=== PATIENT | male | born 1950 | race Caucasian/White ===

== ENCOUNTER 2021-04-13 16:56 | Inpatient (IN) | payer OTHER ==
--- OUTSIDE RECORDS SUMMARY | 2021-04-13 16:59 | XMS REPORT | Continuity of Care Document ---
:1950 Author Organization [facility] t Address [address] [place] [address] Care Team Providers Name Role Phone OSCAR Attending Clinician Unavailable NERY Attending Clinician Unavailable AMARILYS Attending Clinician Unavailable Babar Faulkner MA Attending Clinician Unavailable OSCAR Attending Clinician Unavailable AMARILYS Attending Clinician Unavailable Hector RUSSELL, Sonu Attending Clinician NERY Attending Clinician Unavailable KENYATTA Attending Clinician Unavailable Payers Payer Name Policy Type Policy Number Effective Date Expiration Date S sivakumar MEDICARE PART A [id number] 2013 2024 AND B 00:00:00 00:00:00 Problems Condition Condition Condition Status Onset Resolution Last Treating Co mments Source Name Details Category Date Date Treatment Clinician Date History of History of Problem Active U nivers right foot right foot it y of drop drop [place] [facility] ans History of History of Problem Resolve Univers chronic chronic d ity of fatigue fatigue [place] syndrome syndrome Physic i ans History of History of Problem Resolve Univers depression depression d it y of [place] [facility] ans History of History of Problem Resolve Univers diabetes diabetes d ity of mellitus mellitus [place] [facility] History of History of Problem Resolve Univers high blood high blood d it y of pressure pressure [place] [facility] Patent Patent Problem Active 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 [place] [facility] ans 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 [place] [facility] ans 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 [place] with with Physici peripheral peripheral an s quitline counselor quitline counselor y y disorder, disorder, uncontroll uncontroll ed ed Pure Pure Problem Active Univers hyperchole hyperchole it y of sterolemia sterolemia [place] [facility] Occlusion Occlusion Problem Active Uni vers and and ity of stenosis stenosis [place] of of Physici cerebral cerebral ans artery artery Pericardia Pericardia Problem Active U nivers l effusion l effusion it y of [place] [facility] ans Lingual Lingual Problem Active Univers dysarthria dysarthria it y of [place] [facility] ans Smoking Smoking Problem Active Univers trying to trying to ity of quit quit [place] [facility] Exercise Exercise Problem Active Unive rs counseling counseling it y of [place] [facility] ans 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 brain ity of injury injury [place] with loss with loss Phys ici of of ans consciousn consciousn ess, ess, subsequent subsequent encounter encounter Kidney Kidney Problem Active Univers mass mass ity of [place] [facility] ans 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 with unknown unknown primary primary site site Brow Brow Problem Active Univers ptosis, ptosis, ity of left left [place] [facility] ans Exposure Exposure Problem Active Unive rs keratitis keratitis ity of [place] [facility] ans 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 ity of [place] [facility] ans 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 ity of [place] [facility] ans Open wound Open wound Problem Active U nivers of face, of face, ity of initial initial [place] encounter encounter Phys ici ans Dysphagia, Dysphagia, Problem Active U nivers oral phase oral phase it y of [place] [facility] ans 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 ectropion ity of of left of left [place] lower lower Physici eyelid eyelid ans Paralytic Paralytic Problem Active Uni vers lagophthal lagophthal it y of mos of mos of [place] left upper left upper Ph ysici eyelid eyelid ans Closed Closed Problem Active Univers fracture fracture ity of of nasal of nasal [place] bone, bone, Physici initial initial ans encounter encounter Deviated Deviated Problem Active Unive rs septum septum ity of [place] [facility] ans 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 Family History Family Member Diagnosis Comments Start Date Stop Date Source Mother Family history of Univers ity of [place] cardiac disorder Physicia ns Social History Social Habit Start Date Stop Date Quantity Comments Source Sex Assigned At [birth year] [facility] ethodist 00:00:00 00:00:00 Smoking Status Start Date Stop Date Source Never smoked tobacco (finding) U [facility] Medications Ordered Filled Start Stop Current Ordering Indication Dosage Frequency Signature Comments Components Source Medication Medication Date Date Medication? Clinician (SIG) Name Name Carac 0.5 % Carac 0.5 % 2018- Yes PIERRE HO APPLY THIN Univers External External 8-29 M.D. FILM TO ity of Cream Cream 00:00: AFFECTED [place] 00 AREA(S) AT Physic BEDTIME. ans Tricor 145 Tricor 145 2006- Yes QD TAKE 1 Univers MG Oral MG Oral 3-28 TABLET ity of Tablet Tablet 00:00: DAILY [place] 00 Physici ans Lantus SOLN Lantus SOLN Yes U nivers ity of [facility] ans Sertraline Sertraline Yes Uni vers HCl TABS HCl TABS ity of [facility] ans Atorvastati Atorvastati Yes U nivers n Calcium n Calcium ity o f TABS TABS [facility] ans Victoza 18 Victoza 18 Yes Uni vers MG/3ML SOLN MG/3ML SOLN i ty of [facility] ans Losartan Losartan Yes Univers Potassium-H Potassium-H i ty of CTZ CTZ [place] 100-12.5 MG 100-12.5 MG P hysici Oral Tablet Oral Tablet a ns Levothyroxi Levothyroxi Yes U nivers ne Sodium ne Sodium ity o f TABS TABS [facility] ans Aspirin Aspirin Yes Univers TABS TABS ity of [facility] ans Fenofibrate Fenofibrate Yes U nivers 145 MG Oral 145 MG Oral i ty of Tablet Tablet [facility] ans Xigduo XR Xigduo XR Yes Unive rs TB24 TB24 ity of [facility] ans Metoprolol Metoprolol Yes Uni vers Tartrate Tartrate ity of TABS TABS [place] [facility] ans Metoprolol Metoprolol Yes Uni vers Tartrate Tartrate ity of TABS TABS [place] [facility] ans Vital Signs Vital Name Observation Time Observation Value Comments Source Weight 2020-12-29 202 [lb_av] University 10:32:00 [place] [facility] s Body temperature 2020-12-29 96.8 [degF] [facility] 10:32:00 [place] [facility] s Body height 2020-12-29 69 [in_us] University 10:32:00 [place] [facility] s Body mass index 2020-12-29 29.83 kg/m2 [place] o f (BMI) [Ratio] 10:32:00 [place] Physicia ns Body height 2020-12-29 69 [in_us] [facility] 09:07:00 [place] [facility] s Body mass index 2020-12-29 29.83 kg/m2 [place] o f (BMI) [Ratio] 09:07:00 [place] Phys[facility] ns Weight 2020-12-29 202 [lb_av] [facility] 09:07:00 [place] Physician s Body temperature 2020-12-29 96.8 [degF] Method: [facility] 09:07:00 [facility] [place] Physician s Body height 2020-10-24 69 [in_us] University 09:52:00 [place] [facility] s Weight 2020-10-24 201 [lb_av] University 09:52:00 [place] [facility] s Body mass index 2020-10-24 29.68 kg/m2 [place] o f (BMI) [Ratio] 09:52:00 [place] [facility] ns Body temperature 2020-10-24 97.1 [degF] [facility] 09:52:00 [place] [facility] Body height 2020-07-25 69 [in_us] University 09:44:00 [place] [facility] s Weight 2020-07-25 200 [lb_av] [facility] 09:44:00 [place] [facility] s Body mass index 2020-07-25 29.54 kg/m2 University o f (BMI) [Ratio] 09:44:00 [place] [facility] ns Body temperature 2020-07-25 97.2 [degF] [facility] 09:44:00 [place] [facility] Body height 2020-06-23 69 [in_us] [facility] 09:39:00 [place] [facility] s Body mass index 2020-06-23 29.54 kg/m2 University o f (BMI) [Ratio] 09:39:00 [place] [facility] ns Weight 2020-06-23 200 [lb_av] University of 09:39:00 [place] [facility] Body temperature 2020-06-23 97.6 [degF] University of 09:39:00 [place] [facility] Body height 2020-06-23 69 [in_us] University of 08:31:00 [place] [facility] Weight 2020-06-23 200 [lb_av] University of 08:31:00 [place] [facility] s Body mass index 2020-06-23 29.54 kg/m2 University o f (BMI) [Ratio] 08:31:00 [place] [facility] ns Body temperature 2020-06-23 97.1 [degF] University of 08:31:00 [place] [facility] Body height 2020-01-25 69 [in_us] University of 13:04:00 [place] [facility] Weight 2020-01-25 173 [lb_av] [place] of 13:04:00 [place] [facility] s Body mass index 2020-01-25 25.55 kg/m2 University o f (BMI) [Ratio] 13:04:00 [place] Physicia ns Body temperature 2020-01-25 97.7 [degF] University of 13:04:00 [place] [facility] s Body temperature 2020-01-25 97.5 [degF] Method: Oral University of 12:14:00 [place] [facility]ician s BP Systolic 2019-10-26 123 mm[Hg] University of 14:10:00 [place] [facility] s BP Diastolic 2019-10-26 71 mm[Hg] University of 14:10:00 [place] [facility] Height 2019-10-26 69 [in_us] University of 14:10:00 [place] [facility] Body Mass Index 2019-10-26 25.55 kg/m2 University o f Calculated 14:10:00 [place] Phys[facility] s Weight 2019-10-26 173 [lb_av] University of 14:10:00 [place] [facility] s Temperature 2019-10-26 98.2 [degF] University of 14:10:00 [place] [facility] Heart Rate 2019-10-26 58 /min University of 14:10:00 [place] [facility] s BP Systolic 2019-10-26 123 mm[Hg] Location: [facility] 13:42:00 Position: [place] Phys[facility] s Sitting BP Diastolic 2019-10-26 71 mm[Hg] Location: [facility] 13:42:00 Position: [place] [facility] s Sitting Height 2019-10-26 69 [in_us] University of 13:42:00 [place] [facility] Body Mass Index 2019-10-26 25.67 kg/m2 University o f Calculated 13:42:00 [place] [facility] s Weight 2019-10-26 173.8 [lb_av] University of 13:42:00 [place] [facility] Temperature 2019-10-26 98.2 [degF] Method: Oral University of 13:42:00 [place] [facility] Heart Rate 2019-10-26 58 /min University of 13:42:00 [place] [facility] s BP Systolic 2019-07-30 116 mm[Hg] University of 11:21:00 [place] [facility] BP Diastolic 2019-07-30 70 mm[Hg] University of 11:21:00 [place] [facility] Height 2019-07-30 69 [in_us] University of 11:21:00 [place] [facility] Body Mass Index 2019-07-30 24.81 kg/m2 University o f Calculated 11:21:00 [place] [facility] s Weight 2019-07-30 168 [lb_av] University of 11:21:00 [place] [facility] Temperature 2019-07-30 98.1 [degF] University of 11:21:00 [place] [facility] Heart Rate 2019-07-30 60 /min University of 11:21:00 [place] [facility] s BP Systolic 2019-07-30 116 mm[Hg] University of 11:17:00 [place] [facility] s BP Diastolic 2019-07-30 70 mm[Hg] University of 11:17:00 [place] [facility] Height 2019-07-30 69 [in_us] University of 11:17:00 [place] [facility] Body Mass Index 2019-07-30 24.81 kg/m2 University o f Calculated 11:17:00 [place] [facility] s Weight 2019-07-30 168 [lb_av] University of 11:17:00 [place] [facility] Temperature 2019-07-30 98.1 [degF] University of 11:17:00 [place] [facility] Heart Rate 2019-07-30 60 /min University of 11:17:00 [place] [facility] s BP Systolic 2019-07-30 116 mm[Hg] University of 10:39:00 [place] [facility] s BP Diastolic 2019-07-30 70 mm[Hg] University of 10:39:00 [place] [facility] Height 2019-07-30 69 [in_us] University of 10:39:00 [place] [facility] Body Mass Index 2019-07-30 24.81 kg/m2 University o f Calculated 10:39:00 [place] [facility] s Weight 2019-07-30 168 [lb_av] University of 10:39:00 [place] [facility] Temperature 2019-07-30 98.1 [degF] [facility] 10:39:00 [place] [facility] Heart Rate 2019-07-30 60 /min [facility] 10:39:00 [place] [facility] s BP Systolic 2019-06-22 141 mm[Hg] University 09:46:00 [place] [facility] s BP Diastolic 2019-06-22 81 mm[Hg] [facility] 09:46:00 [place] [facility] Height 2019-06-22 69 [in_us] [facility] 09:46:00 [place] [facility] Weight 2019-06-22 167.375 [lb_av] University o 09:46:00 [place] [facility] Body Mass Index 2019-06-22 24.72 kg/m2 University o f Calculated 09:46:00 [place] [facility] s Temperature 2019-06-22 97.9 [degF] [facility] 09:46:00 [place] [facility] Heart Rate 2019-06-22 64 /min [facility] 09:46:00 [place] [facility] s BP Systolic 2019-05-21 138 mm[Hg] Position: [facility] 10:16:00 Sitting [place] [facility] s BP Diastolic 2019-05-21 82 mm[Hg] Position: [facility] 10:16:00 Sitting [place] [facility] Height 2019-05-21 69 [in_us] [facility] 10:16:00 [place] [facility] s Weight 2019-05-21 161 [lb_av] [facility] 10:16:00 [place] [facility] Body Mass Index 2019-05-21 23.78 kg/m2 University o f Calculated 10:16:00 [place] [facility] s Temperature 2019-05-21 98.6 [degF] Method: Oral University of 10:16:00 [place] [facility] Heart Rate 2019-05-21 53 /min Quality: Normal University o 10:16:00 [place] [facility] s BP Systolic 2019-04-30 117 mm[Hg] Location: [facility] 13:35:00 Position: [place] Physician s Sitting BP Diastolic 2019-04-30 73 mm[Hg] Location: [facility] 13:35:00 Position: [place] Physician s Sitting Height 2019-04-30 69 [in_us] [facility] 13:35:00 [place] [facility] s Weight 2019-04-30 161 [lb_av] University of 13:35:00 [place] [facility] Body Mass Index 2019-04-30 23.78 kg/m2 University o f Calculated 13:35:00 [place] [facility] Heart Rate 2019-04-30 49 /min University of 13:35:00 [place] [facility] s BP Systolic 2019-04-30 117 mm[Hg] University of 12:02:00 [place] [facility] s BP Diastolic 2019-04-30 73 mm[Hg] University of 12:02:00 [place] [facility] Height 2019-04-30 69 [in_us] University of 12:02:00 [place] [facility] Heart Rate 2019-04-30 49 /min University of 12:02:00 [place] [facility] s BP Systolic 2019-03-23 105 mm[Hg] University of 13:19:00 [place] [facility] s BP Diastolic 2019-03-23 62 mm[Hg] University of 13:19:00 [place] [facility] Height 2019-03-23 69 [in_us] University of 13:19:00 [place] [facility] Weight 2019-03-23 161.125 [lb_av] University o f 13:19:00 [place] [facility] Body Mass Index 2019-03-23 23.79 kg/m2 University o f Calculated 13:19:00 [place] [facility] s Temperature 2019-03-23 97.2 [degF] University of 13:19:00 [place] [facility] Heart Rate 2019-03-23 53 /min University of 13:19:00 [place] [facility] s BP Systolic 2018-12-08 99 mm[Hg] University of 15:12:00 [place] [facility] BP Diastolic 2018-12-08 57 mm[Hg] University of 15:12:00 [place] [facility] Height 2018-12-08 71 [in_us] University of 15:12:00 [place] [facility] Weight 2018-12-08 197.4 [lb_av] University of 15:12:00 [place] [facility] Body Mass Index 2018-12-08 27.53 kg/m2 University o f Calculated 15:12:00 [place] [facility] Temperature 2018-12-08 98.4 [degF] University of 15:12:00 [place] [facility] Heart Rate 2018-12-08 62 /min University of 15:12:00 [place] [facility] s BP Systolic 2018-11-06 102 mm[Hg] University of 13:14:00 [place] [facility] s BP Diastolic 2018-11-06 62 mm[Hg] University of 13:14:00 [place] [facility] Height 2018-11-06 71 [in_us] University of 13:14:00 [place] [facility] Body Mass Index 2018-11-06 27.48 kg/m2 University o f Calculated 13:14:00 [place] [facility] Weight 2018-11-06 197 [lb_av] University of 13:14:00 [place] [facility] Temperature 2018-11-06 98.5 [degF] University of 13:14:00 [place] [facility] Heart Rate 2018-11-06 57 /min University of 13:14:00 [place] [facility] s BP Systolic 2018-11-06 102 mm[Hg] Location: [facility]; [facility] 12:39:00 Position: [place] Physician s Sitting BP Diastolic 2018-11-06 62 mm[Hg] Location: [facility] 12:39:00 Position: [place] [facility]ician s Sitting Height 2018-11-06 71 [in_us] University of 12:39:00 [place] [facility] Weight 2018-11-06 197 [lb_av] University of 12:39:00 [place] [facility] Body Mass Index 2018-11-06 27.48 kg/m2 University o f Calculated 12:39:00 [place] [facility] s Temperature 2018-11-06 98.5 [degF] Method: Oral University of 12:39:00 [place] [facility] Heart Rate 2018-11-06 57 /min University of 12:39:00 [place] [facility] s BP Systolic 2018-10-09 124 mm[Hg] University of 15:07:00 [place] [facility] s BP Diastolic 2018-10-09 63 mm[Hg] University of 15:07:00 [place] [facility] Height 2018-10-09 71 [in_us] University of 15:07:00 [place] [facility] Body Mass Index 2018-10-09 28.59 kg/m2 University o f Calculated 15:07:00 [place] [facility] s Weight 2018-10-09 205 [lb_av] University of 15:07:00 [place] [facility] s Temperature 2018-10-09 97.9 [degF] University of 15:07:00 [place] [facility] Heart Rate 2018-10-09 64 /min University of 15:07:00 [place] [facility] s BP Systolic 2018-10-09 124 mm[Hg] Location: [facility] 14:18:00 Position: [place] Physician s Sitting BP Diastolic 2018-10-09 63 mm[Hg] Location: [facility]; [facility] 14:18:00 Position: [place] [facility]ician s Sitting Height 2018-10-09 71 [in_us] [facility] 14:18:00 [place] [facility] Weight 2018-10-09 205 [lb_av] University 14:18:00 [place] [facility] Body Mass Index 2018-10-09 28.59 kg/m2 University o f Calculated 14:18:00 [place] [facility] Temperature 2018-10-09 97.9 [degF] Method: Oral University 14:18:00 [place] [facility] Heart Rate 2018-10-09 64 /min Location: [facility] 14:18:00 Brachial [place] [facility] Artery; BP Systolic 2018-07-07 109 mm[Hg] University 11:31:00 [place] [facility] BP Diastolic 2018-07-07 65 mm[Hg] University 11:31:00 [place] [facility] Height 2018-07-07 71 [in_us] University 11:31:00 [place] [facility] Weight 2018-07-07 205 [lb_av] University 11:31:00 [place] [facility] Body Mass Index 2018-07-07 28.59 kg/m2 University o f Calculated 11:31:00 [place] [facility] Procedures Procedure Date / Time Performing Clinician Source Performed PET CT Head/Neck CA 2020-11-14 00:00:00 [facility] initial staging [id number] Neck soft tissue w 2020-01-25 00:00:00 [facility] contrast [id number] Chest w contrast 2020-01-25 00:00:00 [facility] [address] Chest w contrast 2019-07-30 00:00:00 [facility] [address] Neck soft tissue w 2019-07-30 00:00:00 [facility] contrast [address] Chest w contrast 2019-03-23 00:00:00 [facility] [address] Neck soft tissue w 2019-03-23 00:00:00 [facility] contrast [address] Abd Renal Protocol 2018-11-06 00:00:00 [facility] w/wo IV contrast Physicians [id number] Head/Neck CA 2018-10-12 00:00:00 [facility] initial staging [id number] Physicians History of Heart Valve [facility] [place] Replacement Physicians History of [facility] Physicians Plan of Care Planned Activity Planned Date Details Comments Source Future Scheduled 2021-04-23 INFLUENZA VACCINE [place] [facility] 00:00:00 [code = INFLUENZA VACCINE] Diagnostic Test 2018-10-[address] Head/Neck CA [facility] Pending 00:00:00 initial staging 00035 Physic ians [code = 71355] Future Scheduled 1998 SHINGLES VACCINES [place] [facility] 00:00:00 (#1) [code = SHINGLES VACCINES (#1)] Future Scheduled 1998 COLONOSCOPY SCREENING [place] [facility] 00:00:00 [code = COLONOSCOPY SCREENING] Future Scheduled 1966 Hepatitis C screening [place] [facility] 00:00:00 (procedure) [code = 696165099] Future Scheduled 1960 COVID-19 VACCINE (1) [place] [facility] 00:00:00 [code = COVID-19 VACCINE (1)] Future Scheduled 1958 DIABETES: RETINAL EYE [place] [facility] 00:00:00 EXAM [code = DIABETES: RETINAL EYE EXAM] Future Scheduled 1958 DIABETIC FOOT EXAM [place] [facility] 00:00:00 [code = DIABETIC FOOT EXAM] Future Scheduled 1958 URINE MICROALBUMIN [place] [facility] 00:00:00 [code = URINE MICROALBUMIN] Future Scheduled 1954 65+ PNEUMOCOCCAL [place] [facility] 00:00:00 VACCINE (1 of 4 - PCV13) [code = 65+ PNEUMOCOCCAL VACCINE (1 of 4 - PCV13)] Encounters Start End Encounter Admission Attending Care Care Encounter Source Date/Time Date/Time Type Type Clinicians Facility Department ID 2021-03-24 Outpatient OSCAR GABBY [facility] [id number] [place] 01:05:04 [facility] 2021-03-09 Outpatient NERY [facility] [id number] [place] 09:25:23 [facility] 2021-03-06 Outpatient GABBY MOORE [facility] [id number] [place] 13:42:41 [facility] 2021-03-06 Outpatient GABBY MOORE [facility] [id number] [place] 12:36:12 [facility] 2021-02-15 Outpatient POLLO PANDA [facility] [id number] [place] 12:23:06 [facility] 2021-01-28 Outpatient GABBY MOORE [facility] [id number] [place] 03:35:47 [facility] 2021-01-28 Outpatient POLLO PANDA [facility] [id number] [place] 03:35:47 [facility] 2021-03-09 2021-03-09 Office Pollo Panda 6400 [id number] 07:34:19 08:11:[address] [id number] 2021-03-06 2021-03-06 Office Gabby Moore [facility]TP 6400 [id number] 12:36:04 13:43:[address] [id number] 2021-03-01 2021-03-01 Telephone ROXY Faulkner 6400 [id number] 00:00:00 00:00:[address] [id number] 2021-02-21 2021-02-21 Outpatient [facility] [id number] [facility] 05:32:00 05:32:00 2021-02-21 2021-02-21 Outside Gabby Moore 6400 [id number] 00:00:00 00:00:[address] [id number] 2021-02-13 2021-02-13 Telephone Pollo Panda 6400 [id number] 00:00:00 00:00:[address] [id number] 2020-12-29 [facility] [id number] Univers 10:00:00 10:00:00 t; Pra[place] MOORE yngology - ity of [place] PIER[facility] ans 2020-12-29 2020-12-29 Appointmen POLLO PANDA [facility] [id number] Univers 09:15:00 09:15:00 t; Pra[place] PANDA yngology - i ty of [place] AB[facility] ans 2020-11-14 2020-11-14 AppointPOLLO Chadwick UTP [facility] [id number] Univers 09:15:00 09:15:00 t; Pra[place] PANDA yngology - i ty of [place] [facility] 2020-10-24 2020-10-24 AppointGABBY Malik UTP [facility] 7 [id number] Univers 10:00:00 10:00:00 t; [place] MOOREngology - ity ana PIERRE M.D. [facility] 2020-07-25 2020-07-25 GABBY Rojas UTP [facility] [id number] Univers 09:30:00 09:30:00 t; [place] MOOREngology - ity ana PIERRE M.D. [facility] 2020-07-12 2020-07-12 [facility] [id number] [facility] 05:51:00 05:51:00 2020-06-23 2020-06-23 AppointGABBY Malik UTP [place] [id number] Univers 10:00:00 10:00:00 t; [place] MOORE yngology - ity ana PIERRE M.D. [facility] ans 2020-06-23 2020-06-23 POLLO Pablo UTP [facility] [id number] Univers 08:30:00 08:30:00 t; Praful PANDA yngology - i ty of [place] AB[facility] ans 2020-04-25 2020-04-25 AppointPOLLO Chadwick UTP UTP [id number] Univers 14:00:00 14:00:00 t; [place] PADNA ity ana ABAD M.D. [facility] 2020-01-25 2020-01-25 AppointPOLLO Chadwick UTP [facility] [id number] Univers 14:00:00 14:00:00 t; Praful PANDA yngology - i ty of [place] [facility] 2020-01-25 2020-01-25 AppointGABBY Malik UTP [facility] [id number] Univers 13:00:00 13:00:00 t; [place] MOOREology - ity ana PIERRE M.D. [facility] 2019-10-26 2019-10-26 AppointGABBY Malik UTP [facility] 6 [id number] Univers 13:15:00 13:15:00 t; [place] MOOREology - itAyden M.D. [facility] 2019-10-26 2019-10-26 AppointPOLLO Chadwick UTP [facility] [id number] Univers 13:15:00 13:15:00 t; [place] PANDAngology - i ty of [place] [facility] 2019-10-26 2019-10-26 AppointGABBY Malik UTP UTP [id number] Univers 10:30:00 10:30:00 t; [place] MOORE M.D. [facility] 2019-10-20 2019-10-20 [facility] [id number] [facility] 05:28:00 05:28:00 2019-09-21 2019-09-21 AppointPOLLO Chadwick UTP UTP [id number] Univers 10:00:00 10:00:00 t; [place] PANDA ity ana ABAD M.D. [facility] 2019-07-30 2019-07-30 POLLO Pablo UTP Otorhinolar [id number] Univers 11:00:00 11:00:00 t; Praful PANDA yngology - i ty of Praful ABAD [facility] 2019-07-30 2019-07-30 Appointmen GABBY MOORE UTP Otorhinolar 5 [id number] Univers 10:30:00 10:30:00 t; Praful MOOREngology - ity ana PIERRE M.D. [facility] 2019-07-14 2019-07-14 Outpatient [facility] [id number] [facility] 13:10:00 13:10:00 2019-06-22 2019-06-22 Appointmen GABBY MOORE UTP Otorhinolar 5 [id number] Univers 10:00:00 10:00:00 t; Praful MOOREngology - itAyden M.D. [facility] 2019-06-12 2019-06-12 [place] [facility] [id number] 00:00:00 00:00:00 Rayo Ascencio [place] [id number] [place] [id number] [facility] [id number] nal 092 [facility] 2019-05-21 2019-05-21 Appointmen GABBY MOORE UTP Otorhinolar 5 [id number] Univers 10:00:00 10:00:00 t; Praful MOOREngology - itAyden M.D. [facility] 2019-05-05 2019-05-05 Outpatient [facility] [id number] [facility] 10:35:00 10:35:00 2019-04-30 2019-04-30 Appointmen POLLO PANDA UTP Otorhinolar [id number] Univers 11:00:00 11:00:00 t; Praful PANDAology - i ty ana ABAD M.D. [facility] ans 2019-04-30 2019-04-30 Appointmen GABBY MOORE UTP Otorhinolar 5 [id number] Univers 10:15:00 10:15:00 t; Praful MOOREology - itAyden M.D. [facility] ans 2019-03-23 2019-03-23 AppointPOLLO Chadwick UTP Otorhinolar [id number] [facility] 13:15:00 13:15:00 t; Praful PANDAngology - i ty ana ABAD M.D. [facility] ans 2019-02-26 2019-02-26 Appointmen GABBY MOORE UTP UTP [id number] Univers 08:00:00 08:00:00 t; Praful MOORE itAyden M.D. [facility] 2018-12-08 2018-12-08 Appointmen GABBY MOORE UTP Otorhinolar 5 [id number] Univers 14:15:00 14:15:00 t; Praful MOOREngology - itAyden M.D. [facility] 2018-11-06 2018-11-06 Appointmen GABBY MOORE UTP Otorhinolar 5 [id number] Univers 13:00:00 13:00:00 t; Praful MOOERngology - Llvuia M.D. [facility] 2018-11-06 2018-11-06 Appointmen POLLO PANDA UTP Otorhinolar [id number] Univers 12:45:00 12:45:00 t; Praful PANDA yngology - i ty ana ABAD M.D. [facility] 2018-10-09 2018-10-09 Appointmen GABBY MOORE UTP Otorhinolar 4 [id number] Univers 15:00:00 15:00:00 t; Praful MOOREngology - Lluvia M.D. [facility] 2018-10-09 2018-10-09 Appointmen POLLO PANDA UTP Otorhinolar [id number] Univers 14:30:00 14:30:00 t; Praful PANDA yngology - i ty ana ABAD M.D. [facility] 2018-10-09 2018-10-09 Appointmen ROXY GABRIEL Neurology [id number] Univers 12:30:00 12:30:00 t; Joao ARMIJO M.D. [place] Yeison ARMIJO i, M.D. [facility] 2018-07-07 2018-07-07 Appointmen ROXY BRASHER Cardiothora [id number] Univers 11:00:00 11:00:00 t; FRANCISCO BRASHER M.D. cic and ity of FRANC[facility] - Physic i Dr. 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 Nohypermetabolic masses identified to suggest residual or recurrent disease.Lymph Nodes: There is no evidence of FDG avid lymphadenopathy.Other Organs: There are no other metabolically active lesions in the visualized majororgans.Bones: There are no FDG avid bony lesionsThe remainder of tracer distribution and metabolism throughout the body isphysiologic.CT:The left kidney is multicystic and atrophic. There is a stable non-FDG avidhyperdense lesion in the inferior right kidney measuring 2.3 x 2 cm, likelyrepresenting a complex cyst, as there has been no significant interval changecompared to 10/20/2018. There is a stable 4.9 cm parapelvic right renal cyst.Stable hypodense adrenal nodules, likely representing adrenal adenomas. An IVCfilter is again seen, with struts extending through the wall of the IVC, andabutting the duodenum. Atherosclerotic disease seen in the aorta and majorarteries of the abdomen. No Pulmonary nodules seen. Cholelithiasis without CTevidence for acute cholecystitis.The remaining major visualized organs show no evidence of additional metastaticsites including the bones.IMPRESSION: Left parotid gland resection changes, without hypermetabolic foci to suggestlocal recurrence or metastatic disease.No FDG avid lymphadenopathy or distant metastases.--This report was dictated by a Emergency Room Specialist/Fellow/Physician Radio Electronics Technician. Ihave personallyreviewed the images as well as the interpretation and agree with the findings.Read by: Hi Galvez MD Resident/Fellow/PhysicianAss istant: Hi Galvez MDDictated Date/time: 12/07/20 10:56Electronically Signed by: Cat Reyes MD 12/09/2107:47FINAL REPORT CT Neck/Chest w 2020-03 Radiation Dose CTDIVOL = 0 [facility] of contrast 56527 -27 (mGy): DLP = 913.82 [place] 13:04:0 (mGy-cm)PROCEDURE Physici ans 0 INFORMATION:Exam: CT Neck With ContrastExam date and time: 04/18/2020 1:23 PMAge: 69 years oldClinical indication: Malignant neoplasm of parotid gland; Additional info: /[id number] neoplasm of parotid glandTECHNIQUE:Imaging protocol: Computed tomography images of the neck with intravenouscontrast.3D rendering: MIP and/or 3D reconstructed images were created by thetechnologist.Radiation optimization: All CT scans at this facility use at least one of thesedose optimization techniques: automated exposure control; mA and/or kVadjustment per patient size (includes targeted exams where dose is matched toclinical indication); or iterative reconstruction.Contrast material: OMNIPAQUE 300; Contrast volume: 100 ml; Contrast route:INTRAVENOUS (IV); COMPARISON:NECK SOFT TISSUE W CONTRAST CT 09/14/2019 9:13 AMRADIATION DOSE METRICS:Total DLP (mGy-cm): 913.82FINDINGS:Brain: No abnormal intracranial enhancement along the visualized segments.Orbits: Prior bilateral cataract surgery.Sinuses: Moderate right maxillary sinus mucosal thickening.Nasopharynx: Unremarkable.Oropharynx: Unremarkable. No significant tonsillar enlargement.Hypopharynx: Unremarkable.Larynx: Normal epiglottis.Retropharyngeal space: Unremarkable.Submandibular/P arotid glands: Healed left parotid and submandibular glandresection with flap reconstruction in keeping with history. No signs of localrecurrence. The right parotid and submandibular gland are unremarkable.Thyroid: Stable benign 5 mm lipoma of the left thyroid lobe.Lymph nodes: No pathologically enlarged cervical lymph nodes are seen.Trachea: Visualized trachea is unremarkable.Lungs: No consolidation.Bones/joints: Severe multilevel degenerative disc disease and uncovertebraljoint hypertrophy with moderate to severe multilevel cervical facet arthrosis.No fracture, dislocation or destructive bone lesion. Large benign arachnoidgranulation again noted in the occipital skull without aggressive appearance.Vasculature: Severe bilateral carotid bulb calcification without flow-limitingextracranial carotid stenosis by limited, non angiographic examination. No boneor cartilage destruction. Severe bilateral cavernous ICA calcification.Soft tissues: Incidental metallic left eyelid weight implant with associatedstreak artifact. ======PROCEDURE INFORMATION:Exam: CT Chest With ContrastExam date and time: 04/18/2020 1:23 PMAge: 69 years oldClinical indication: Malignant neoplasm of parotid gland; Additional info: /[id number] neoplasm of parotid glandTECHNIQUE:Imaging protocol: Computed tomography of the chest with intravenous contrast.3D rendering: MIP and/or 3D reconstructed images were created by thetechnologist.Radiation optimization: All CT scans at this facility use at least one of thesedose optimization techniques: automated exposure control; mA and/or kVadjustment per patient size (includes targeted exams where dose is matched toclinical indication); or iterative reconstruction.Contrast material: OMNIPAQUE 300; Contrast volume: 100 ml; Contrast route:INTRAVENOUS (IV); COMPARISON:NECK SOFT TISSUE W CONTRAST CT 09/14/2019 9:13 AMRADIATION DOSE METRICS:Total DLP (mGy-cm): 913.82FINDINGS:Lungs: Clear lungs with scattered platelike atelectasis and or scarring. Stable3 mm right upper lobe pulmonary nodule (401, 56) dating back to 2018.Pleural space: No pleural effusion.Heart: Cardiomegaly with multichamber enlargement and severe multivesselcoronary calcification. No pericardial thickening or effusion. 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 Remaining thoracic aorta isnormal in caliber with severe aortic calcification. No dissection.Lymph nodes: No adenopathy.Gallbladder and bile ducts: Cholelithiasis is noted with no signs ofcholecystitis.Adrenals: Again noted are chronic heterogeneously enhancing bilateral adrenalmasses measuring 2.9 and 4.3 cm on the right and left side, respectively. Thisare grossly stable dating back to 2018.Kidneys and ureters: Partially imaged kidneys with chronic extensive leftnephrolithiasis and multiple left renal cortical scars.Bones/joints: No destructive bone lesions. =====IMPRESSION:CT Neck With Contrast1. Healed left parotid and submandibular gland resection with no signs of localrecurrence.2. No pathologic cervical adenopathy.3. Severe carotid bulb and bilateral cavernous ICA atherosclerosis.4. No abnormal intracranial enhancement.5. Chronic inflammatory sinus disease.CT Chest With Contrast1. No CT evidence of intrathoracic metastasis. Chronically stable 3 mm rightupper lobe lung nodule, likely benign.2. 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 Nodissection.3. Cardiomegaly and severe multivessel coronary atherosclerosis. Stable atrialseptal occluder device.4. No pulmonary edema or consolidation.5. Stable chronic bilateral adrenal masses dating back to 2018 and regarded asbenign. These have been previously characterized as adenomas.6. Cholelithiasis.7. Multiple left renal cortical scars and extensive nonobstructive leftnephrolithiasis.Freddy Glasgow MD On 04/19/2020 10:46:55; [id number]--Thtn by: Freddy Glasgow MDDictated Date/time: 04/19/20 10:47Electronically Signed by: Freddy Glasgow MD 04/19/2010:47FINAL REPORT CT Neck soft 2019-08 Radiation Dose CTDIVOL = 0 [facility] tissue w -23 (mGy): DLP = 713.06 [place] contrast [address]135 08:33:0 (mGy-cm)PROCEDURE Phy sicians 0 INFORMATION:Exam: CT Neck With ContrastExam date and time: 09/14/2019 9:13 AMAge: 69 years oldClinical indication: Malignant neoplasm of parotid gland; Additional info: /[id number] neoplasm of parotid glandTECHNIQUE:Imaging protocol: Computed tomography images of the neck with intravenouscontrast.Total DLP: 713.06 mGy-cmRadiation optimization: All CT scans at this facility use at least one of thesedose optimization techniques: automated exposure control; mA and/or kVadjustment per patient size (includes targeted exams where dose is matched toclinical indication); or iterative reconstruction.Contrast material: [id number]; Contrast volume: 75 ml; Contrast route: IV; COMPARISON:PT PET CT HEAD,NECK CA INITIAL STAGING 10/20/2018 8:20 AMFINDINGS: 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 Prior CT dated 04/30/2019. Status post left parotid resection with graft reconstruction. There is likelyresection of left submandibular gland as well. Skin thickening and subcutaneousreticulation may be result of prior radiation treatment or surgery. No worrisome adenopathy is seen. Moderate atheromatous changes are seen in the carotid bulbs without high-gradestenosis. The pharyngeal mucosa is grossly unremarkable. Mild asymmetry at the level ofthe piriform sinuses likely due to edema on the left. Correlation with directinspection to be considered as indicated. The paranasal sinuses and mastoids are clear. Left eyelid weight in place,compatible with history of facial nerve sacrifice.IMPRESSION:1. Status post left parotidectomy without evidence of recurrence.2. No evidence of worrisome adenopathy within the limitations of the study.Assessment for subtle findings is limited due to streak artifacts from dentalhardware and postsurgical changes. Further assessment with PET or MRI to beconsidered as indicated.3. Mild asymmetry at the level of the piriform sinuses likely due to edema onthe left. Attention at follow-up recommended.Anika Brandon MD On 09/14/2019 12:54:23; [id number]--Nvrx by: Anika HirschapDictated Date/time: 09/14/19 12:54Electronically Signed by: Anika Hirsch 09/14/1912:54FINAL REPORT CT Chest w 2019-08 Radiation Dose CTDIVOL = 0 [facility] 19686 -23 (mGy): DLP = 713.06 [place] 08:33:0 (mGy-cm)PROCEDURE Physici ans 0 INFORMATION:Exam: CT Chest With ContrastExam date and time: 09/14/2019 9:13 AMAge: 69 years oldClinical indication: Malignant neoplasm of parotid gland; Additional info: /malignant neoplasm of parotid glandTECHNIQUE:Imaging protocol: Computed tomography of the chest with intravenous contrast.3D rendering: MIP and/or 3D reconstructed images were created by thetechnologist.Total DLP: 713.06 mGy-cmRadiation optimization: All CT scans at this facility use at least one of thesedose optimization techniques: automated exposure control; mA and/or kVadjustment per patient size (includes targeted exams where dose is matched toclinical indication); or iterative reconstruction.Contrast material: [id number]; Contrast volume: 75 ml; Contrast route: IV; COMPARISON:CHEST W CONTRAST CT 04/30/2019 8:35 AMFINDINGS:Tubes, catheters and devices: Stable position of Amplatzer closer device.Lungs: The appearance of the lung parenchyma is stable. Stable 3 mm nodule inthe right upper lobe on series 3, image 57. No acute parenchymal lung diseaseor new pulmonary nodule or mass.Pleural space: No pneumothorax. No pleural effusion.Heart: Atherosclerotic calcifications are noted, including coronary arterycalcifications.Mediast inum: Tiny hiatal hernia.Pulmonary arteries: The main pulmonary artery measures 3.0 cm.Aorta: The ascending aorta measures 4.0 cm. No aortic aneurysm.Lymph nodes: No enlarged lymph nodes by size criteria.Adrenals: Left adrenal mass measuring 4.0 x 2.2 cm, incompletely imaged, butgrossly stable. Right adrenal mass is also incompletely imaged, but thought zaki grossly stable.Bones/joints: No acute fracture.Soft tissues: Unremarkable.IMPRESSION:Stab le exam.Des Kaur MD On 09/15/2019 14:58:29; [id number]--Rfsj by: Des Kaur MDDictated Date/time: 09/15/19 14:58Electronically Signed by: Des Kaur MD 09/15/1914:58FINAL REPORT CT Neck soft 2019-04 EXAM: CT NECK WITH Univ ersity of tissue w -08 CONTRASTDATE: 04/30/2019 at [place] contrast [address] 08:17:0 8:41 AMINDICATION: Ph ysicians 0 68-year-old male patient with diagnosis of left parotid salivaryduct carcinoma, status post left parotidectomy, left neck dissection, and leftfacial nerve sacrifice on 10/21/2018. Follow-up examinationCOMPARISON: PET/CT of the head and neck dated 10/20/2018.TECHNIQUE: Volumetric CT of the neck is acquired following intravenousadministration of contrast. Axial, coronal and sagittal images are provided.IV contrast: 100 mL of Omnipaque 350.DLP: 711 mGy-cm.FINDINGS:Postoperativ e changes of left parotidectomy and left neck dissection areredemonstrated, without areas of masslike enhancement concerning for localtumor recurrence.Mild fat stranding of the left side of the neck, associated with non masslikethickening of the superior third of the left platysma muscle, likelycorresponding to treatment related changes.No lymphadenopathy by imaging criteria is identified.The nasopharynx, oropharynx and oral cavity are normal. The larynx, hypopharynxand thyroid gland are normal.The remaining salivary glands (right parotid and right submandibular glands)are normal.Mucosal thickening of the alveolar recess of the right maxillary sinus.Otherwise, the imaged portions of the paranasal sinuses and mastoid air cellsare clear. Imaged portions of the brain and orbits are unremarkable.Atheromatous calcification of the cervical and intracranial segments of theinternal carotid arteries bilaterally.Extensive degenerative changes of the cervical spine.The lung apices are clear.IMPRESSION:Postoperati ve changes of left parotidectomy and left neck dissection, withoutfindings concerning for local or [place] tumor recurrence.--This report was dictated by a Emergency Room Specialist/Fellow/Physician Radio Electronics Technician. Ihave personallyreviewed the images as well as the interpretation and agree with the findings.Read by: Clay Donald Resident/Fellow/PhysicianAss istant: Clay Donaldictated Date/time: 04/30/19 11:21Electronically Signed by: Nisha Hayes MD 04/30/1915:25FINAL REPORT CT Chest w 2019-04 EXAM: CT CHEST WITH Univ ersity of contrast 85982 -08 CONTRASTDATE: 04/30/2019 35 [place] 07:49:0 hoursINDICATION: - C77.0 Physicians 0 Secondary and unspecified malignant neoplasm of lymphnodes of head, face and neckCOMPARISON: CT renal protocol from 11/10/2018 and PET/CT from 10/20/2018.TECHNIQUE: Volumetric CT of the chest is acquired following intravenousadministration of contrast. Axial, coronal and sagittal images are provided.IV Contrast: 100 mL of Omnipaque 350.DLP (mGy-cm): 1558 including concurrently acquired chest CT.FINDINGS: Lines, tubes and hardware: IVC filter partially seen.Lower neck: The visible portions or the lower neck and thyroid areunremarkable.Axilla: No enlarged axillary lymph nodes.Airway: Patent.Lungs and pleura: Minimal subsegmental atelectasis at the left lower lobe. Nofocal airspace consolidation, pleural effusion or pneumothorax. Stable rightupper lobe solid pulmonary nodule, 3 mm (image 66, series 3) since 2004. No newpulmonary nodule or mass identified.Mediastinum, jacob and intrathoracic lymph nodes: No enlarged mediastinal orhilar nodes.Heart, pericardium and great vessels: Stable advanced multiple coronary arteryvascular calcifications. Stable position of Amplatzer closure device forclosure of ASD/PFO. Ascending aortic aneurysm at the level of main pulmonarytrunk, 4.2 cm in diameter as well as dilated sinotubular junction, 4.6 cm indiameter. Severe atherosclerotic scattered aortic arch. Main pulmonary trunkmeasures 2.8 cm, within normal limits. The heart is in normal size. Nopericardial effusion or thickening. No right heart strain.Upper abdomen: More prominent concentric hypodense filling defect at nearby thejunction of splenic and SMV (image 287, series 3), more conspicuous compared toprior exams, concerning for thrombus. Small hiatal hernia. Punctatecholelithiasis without inflammation. Partially seen bilateral multiple renalcysts with scarred and atrophic left kidney. Peripheral vascular disease.Stable size of bilateral adrenal adenoma compared to the previous studymeasuring 3.6 cm x 2.5 cm on the left and 3.2 cm x 1.8 cm on the right. Back [id number], they measured 2.5 cm x 2.2 cm on the left and 2.5 cm x 1.7 cm on theright with mild interval increase in the size over the past 14 years.Bones: No acute abnormality.Soft tissues: Normal.IMPRESSION:1. More conspicuous concentric hypodense filling defect nearby the junction ofsplenic and SMV, most suggestive of thrombus.2. No evidence of intrathoracic metastatic disease3. Stable right upper lobe solitary solid pulmonary nodule since 2004.4. Fusiform ascending aortic aneurysm, 4.2 cm in diameter, previously, 4 cm [id number]. Atherosclerotic aortic disease.6. Coronary artery disease.7. Peripheral vascular disease.8. Multiple bilateral renal cysts with atrophic left kidney.9. Bilateral benign adrenal adenoma. They have mildly increased in size [id number]. Punctate cholelithiasis without inflammation.11. Small hiatal hernia.--This report was dictated by a Emergency Room Specialist/Fellow/Physician Radio Electronics Technician. Jakeave personallyreviewed the images as well as the interpretation and agree with the findings.Read by: Christopher Menendez DO Resident/Fellow/PhysicianAss istant: Christopher Menendez DODictated Date/time: 04/30/19 09:15Electronically Signed by: Jose Chavez MD 04/30/1911:35FINAL REPORT CT Abd Renal 2018-10 Study: Abd Renal Protocol [facility] w/wo -18 w/wo IV contrast CT [place] IV contrast 14:02:0 Clinical Indication: - Physicians [id number] N28.89 Other specified disorders of kidney and ureterComparison: CT of the abdomen and pelvis from 05/25/2005. PET/CT scan from10/20/2018.TECHNIQUE: Multiple axial CT images of the abdomen were acquired before andafter the administration of intravenous contrast utilizing the renal massprotocol. Multiplanar reformatted images were performed.DLP= 984.60 mGy-cmFINDINGS: The lung bases are clear bilaterally.There are multiple, nonenhancing, right renal hypodense cysts with largestmeasuring 6.5 cm arising from the interpolar region. There is an exophytic,hyperdense 2.2 cm cyst arising from the interpolar region of the right kidneydemonstrating 53 Hounsfield units on the precontrast images and 59 Hounsfieldunits on the postcontrast images. This is most compatible with a hemorrhagiccyst. Severe atrophy with diffuse cortical scarring of the left kidney is seen.Numerous subcentimeter cortical and medullary calcifications throughout theleft kidney are seen. Multiple left renal hypodense cysts are noted withlargest measuring 3.4 cm. Several of these cysts contain layeringcalcifications. No hydronephrosis or perinephric stranding is seen. Singlerenal artery is seen bilaterally. The renal veins and IVC are patent. IVCfilter is noted.Punctate calcified gallstone is seen. Liver, pancreas, and spleen are normal inappearance. 2.8 cm right adrenal adenoma is seen, demonstrating -8 Hounsfieldunits. 3.9 cm left adrenal adenoma is also noted, demonstrating -1 Hounsfieldunits.Multiple colonic diverticula are seen without inflammatory change to suggestacute diverticulitis. No intraperitoneal free air, free fluid, or pathologicadenopathy is seen. Extensive arterial calcifications are noted.Superficial soft tissues are unremarkable. Degenerative changes of the lowerlumbar spine are seen.IMPRESSION:1. Findings compatible with 2.2 cm hemorrhagic right renal cyst. 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 Multiple right renal simple cysts with largest measuring 6.5 cm, compatiblewith Bosniak type I cyst.3. Multiple left renal cysts, several of which contain layering calcifications.This is compatible with Bosniak type II cysts.4. Bilateral adrenal adenomas.5. Cholelithiasis.6. Colonic diverticulosis without acute diverticulitis.SL: [id number]--Iuyu by: Des Madden MDDictated Date/time: 11/11/18 10:10Electronically Signed by: Des Madden MD 11/11/1909:21FINAL REPORT Tobacco Use Screening 2018-11-06 13:00:00 Test Item Value Reference Range Interpretation Comme nts Completed (test code = Completed) DONE [facility] CT Head/Neck CA initial staging [id number] 2018-10-20 07:50:00EXAM: NM PET CT Skull Base to Mid ThighDATE: 10/20/2018 7:50 CSTINDICATION: C77.0-Head and Neck Cancer, Initial Staging.COMPARISON: Chest CTA 06/13/2018; CT brain without contrast 06/18/2005; MRbrain without contrast 06/04/2005TECHNIQUE: Approximately 60 minutes after IV injection of 13.42 mCi FDG, PET/CTimaging was performed from the level of the skull base to the midthigh.FINDINGS:Head and neck: AnFDG avid soft tissue mass is identified in the left parotidgland which demonstrates maximum SUV of 4.1. This lesion measures approximately2.4 x 2.5 cm (series 3J image 51). The lesion also directly abuts the leftmasseter muscle.No FDG avid lymphadenopathy is identified. Few subcentimeter left intraparotidlymph nodes and left level 2A lymph nodes are identified which are likelyreactive.Chest: No FDG-avid pulmonary nodules or adenopathy are seen. There is nopleural effusion or pericardial effusion.Moderate atherosclerosis is noted within the thoracic aorta. A septal occluderplug is again identifiedat the junction of the right and left atria consistentwith history of previous atrial septal defect occlusion. Three-vessel coronaryartery disease is again seen. Ectasia of the ascending abdominal aorta is againnoted measuring 4.1 cm.Abdomen and pelvis: No focal abnormal FDG uptake is identified in the liver,bilateral adrenals, spleen, or pancreas. No FDG avid lymphadenopathy is seenin the retroperitoneum and pelvis.A large cystic mass is again identified within the right renal collectingsystem measuring 5.2 x 4.8 cm (series 3 image 202). This mass is not in directcontiguity with the ureter most suggestive of an extrarenal pelvis. A simplecyst is also noted in the interpolar region of the right kidney measuring 2.8cm (3/212). A non-FDG avid exophytic solid lesion is noted in the interpolarregion of the right kidney which measures 2.2 x 2 cm (series 3 image 207). Mildcaliectasis is noted in theinterpolar and inferior pole of the right kidney.The left kidney is markedly atrophic with multiple cystic lesions and corticalcalcifications. Evaluation of solid lesions in the left kidney is limited dueto lack of IV contrast.Bilateral hypoattenuating non-FDG avid adrenal lesions are identified with bothlesions demonstrating Hounsfield units less than 10 most suggestive of adrenaladenomas. The rightmass measures 2.1 x 2.5 cm and the left mass measures 2.3 x3.1 cm (series 3 image 172).An IVC filteris identified with the struts extending through the wall of theIVC. Multifocal atherosclerosis is noted involving the aorta, splenic artery,iliac arteries and femoral arteries.Multiple surgical clips are identified in the right inguinal region likelysecondary to prior vascular intervention. Soft tissue thickening is noted inthe anterior abdominal wall most suggestive of sites of prior injection.Skeleton: No focal abnormal FDG activity is identified in the skeleton tosuggest bony metastasis. Multilevel degenerative changes are noted in thespine.IMPRESSION:1. FDG avid left parotid mass in close proximity with the left masseter muscle Recommend further evaluation with tissue sampling.No FDG avid lymphadenopathy in the cervical region bilaterally.2. Exophytic non-FDG avid solid lesion arising from the interpolar region ofthe right kidney which is of uncertain significance along with multiple cysticlesions and calcifications in the atrophic left kidney. Recommend renalultrasound or diagnostic CT for further evaluation of the renal architecture.3. Bilateral non-FDG avid hypoattenuating adrenal lesions with averageHounsfield units measuring less than 10 most suggestive of adrenal adenomas.--This report was dictated by a Emergency Room Specialist/Fellow/Physician Radio Electronics Technician. Ihave personallyreviewed the images as well as the interpretation and agree with the findings.Read by: Shahid Burrell MD Resident/Fellow/PhysicianAssistant: Shahid Burrell MDDictated Date/time: 10/20/18 10:19Electronically Signed by: Shalonda Dunn MD 10/20/1915:59FINAL REPORTUnSalt [facility] CT Heart, coronary art, grafts w contrast [id number] 07:59:00CORONARY CT ANGIOGRAPHY DATE PERFORMED:DATE INTERPRETED: July 03, 2018QUALITY: GoodCOMPARISON: NoneCLINICAL HISTORY:67 year-old patient with known coronary artery disease status post PCI here forevaluation of recurrent chest pain and status post pericardiocentesis.TECHNIQUE: Using a Yaw 320 MDCT scanner, a preliminary drying can worker study was obtained.Following intravenous administration of 80 cc of low osmolar contrast agentOmnipaque 350, 0.5 mm collimated images, with prospective gating, were obtainedthrough the coronary arteries.Total radiation dose administered: 6 mSv.Heart rate at the time of acquisition was approximately 55 bpm.Data were transferred off-line to an independent workstation for3D an atomicreconstructions, including curved multiplanar reconstructions (MPR), maximumintensity projections (MIP), and multi-planar imaging.FINDINGS: Please see separate radiologists report for extra-cardiac findings in theavailable limited views of the lungs, mediastinum and bone structures.Both ventricles normal in size.Both atria normal in size.Valves: no thickening or calcification.No intracardiac masses.Pneumopericardium noted, with no effusion.Aorta and branches: normal anatomy.Pulmonary artery and main branches: normal anatomy.Pulmonary veins: normal insertion into the left atrium.Venae cavae: normal anatomy.An Amplatzer occluder device is noted across the mid interatrial septum.CORONARY ARTERYDESCRIPTIONS:The coronary arteries arise in normal position.Left main coronary artery: Normal caliber vessel that bifurcates into the LADand LCx. LM contains a proximal calcified atheroma, which is not resulting intoa flow-limiting stenosis. In addition there is another calcified atheroma notedat thebifurcation of the vessel, which protrudes into the ostium of the LAD,without resulting into a flow-limiting stenosis of either the left main or theLAD ostium.Left anterior descending coronary artery:Normal caliber vessel that gives off2 patent diagonal branches. LAD contains extensive calcified atheroma of theproximal segment over which a patent stent is noted. There is no evidence ofsignificant in-stent restenosis. Stepdown of the caliber of the LAD is noted atthe distal aspect of the stent. Theremaining segments of the LAD are patentand free of atheroma, of relatively small caliber.Left circum flex coronary artery: Normal caliber vessel that gives off 1patent obtuse marginal branch. LCX is patent with scattered calcified atheroma.Right Coronary artery: Normal caliber vessel which contains extensivecalcified atheroma at the ostium and the proximal segment. The vessel displaysa subtotal occlusion just distal to the ostium. There is faint reconstitutionof the vessel in its mid and distal segments, which appear free of atheroma.IMPRESSIONS:Coronary disease status post PCI of the LAD with a patent stent. Subtotalocclusion near the RCA ostium. Correlation with invasive angiography and/ormyocardial perfusion stress test, as clinically indicated, is suggested.Moderate pneumopericardium noted, status post pericardiocentesis.--Read by: Marko Trent MDDictated Date/time: 07/03/18 13:47Electronically Signed by: Marko Trent MD 07/03/1813:59FINAL REPORTUnSalt [facility]
[2021-04-13] MEDS ORDERED: D50W 25 GM/50 ML SYRINGE IV PRN ×2 (17:35→22:30)
[2021-04-13] MEDS ORDERED: GLUCAGON 1 MG/VIAL IM PRN ×2 (17:35→22:30)
[2021-04-13] MEDS ORDERED: ACETAMINOPHEN 325 MG TABLET PO PRN (17:36)
[2021-04-13] MEDS ORDERED: LOPERAMIDE HCL 2 MG CAPSULE PO PRN ×2 (17:37→18:00)
[2021-04-13] MEDS ORDERED: ONDANSETRON 4 MG/2 ML VIAL IV PRN ×2 (17:37→18:00)
[2021-04-13] MEDS ORDERED: POLYETHYL GLY 3350 17 GM/DOSE PO PRN ×2 (17:37→18:00)
[2021-04-13] MEDS ORDERED: DIPHENHYDRAMINE 25 MG TAB/CAP PO PRN ×2 (17:37→18:00)
[2021-04-13 17:58] VITALS: BMI 30.7
[2021-04-13] MEDS ORDERED: NACHLORIDE 0.45% 1,000 ML IV SCH ×2 (18:00→19:18)
[2021-04-13] MEDS ORDERED: ONDANSETRON 4 MG (ODT) TAB PO PRN (18:00)
[2021-04-13 18:56] LABS: Absolute Lymphocytes (CBC) 0.5 K/uL (0.7-4.9); Basophils % 0.3 % (0-1.3); Hematocrit 32.7 % (39.6-49.0); Lymphocytes % 4.3 % (15.3-44.8); RBC Red Blood Cell Count 3.58 M/uL (4.33-5.43)
--- NOTE | 2021-04-13 19:16 | RAD REPORT ---
EXAM DESCRIPTION: USExtrem Venous W Compress Bil04/13/2021 6:54 pm CLINICAL HISTORY: Leg swelling COMPARISON: none FINDINGS: Echogenic material consistent with acute thrombus is present throughout common femoral, dinh perficial femoral, popliteal, greater saphenous and posterior tibial veins bilaterally. There is minimal flow visualized within the veins. The veins are not compressible IMPRESSION: Extensive bilateral deep veinous thrombosis lower extremities. The patient's nurse Ernesto was notified 7:10 a.m. April 13, 2021
[2021-04-13 19:25] LABS: Platelet Estimate ADEQ; White Blood Cell Scan OK (OK)
[2021-04-13 19:26] LABS: Blood Morphology Comment NOT SEEN (NOT SEEN)
[2021-04-13] MEDS: INSULIN -REGULAR HUMAN 50 UNIT/0.5 ML ML SQ SCH (20:00)
[2021-04-13 20:13] LABS: Albumin 3.6 g/dL (3.4-5.0); Bilirubin Direct 0.3 mg/dL (0-0.2); Phosphorus 6.1 mg/dL (2.5-4.9); Protein, Total 7.6 g/dL (6.4-8.2); Thyroid Stimulating Hormone 2.76 uIU/mL (0.360-3.740)
[2021-04-13 20:48] LABS: Potassium 5.4 mmol/L (3.5-5.1)
[2021-04-13 20:49] LABS: Magnesium 2.8 mg/dL (1.8-2.4)
[2021-04-13] MEDS ORDERED: INSULIN -REGULAR HUMAN 50 UNIT/0.5 ML ML SQ SCH (21:00)
[2021-04-13] MEDS ORDERED: ENOXAPARIN 100 MG/ML SYR SQ SCH (21:00)
[2021-04-13] MEDS: TRAMADOL HCL 50 MG TAB PO PRN (21:03)
[2021-04-13 21:33] LABS: Protime INR 1.22
[2021-04-13 21:35] LABS: Urine Appearance CLEAR (Clear); Urine Bilirubin NEGATIVE (Negative); Urine Blood NEGATIVE (Negative); Urine Color YELLOW (Yellow); Urine Glucose 3+ (Negative); Urine Protein NEGATIVE (Negative); Urine Specific Gravity 1.025 (1.005-1.030); Urine Urobilinogen 0.2 mg/dL (0.2-1.0); Urine pH 5.5 (5.0-7.0)
--- NOTE | 2021-04-13 21:39 | RAD REPORT ---
EXAM DESCRIPTION: Anni Single View04/13/2021 7:28 pm CLINICAL HISTORY: Chest pain COMPARISON: none FINDINGS: A 9 millimeter nodular opacity overlies the right lung base. The remainder of the lungs appear clear of acute infiltrate. The heart is normal size IMPRESSION: 9 millimeter nodular opacity which overlies the right lung base may represent a nipple s hadow or pulmonary nodule. Further evaluation with either frontal and oblique views of the chest with nipple marker or CT is recommended
[2021-04-13 21:48] LABS: Urine Microscopic Reflex NO UMIC
--- NOTE | 2021-04-13 21:54 | RAD REPORT ---
EXAM DESCRIPTION: CTSpine Lumbar Wo Con04/13/2021 8:33 pm CLINICAL HISTORY: Back injury with back pain and radiculopathy status post fall COMPARISON: MRI 2016 TECHNIQUE: Computed axial tomography lumbar spine was obtained with coronal and sagittal reconstruct ion. All CT scans are performed using dose optimization technique as appropriate and may include automated exposure control or mA/KV adjustment according to patient size. FINDINGS: No fracture is seen. Mild anterior subluxation L4 on L5 with disc space narrowing and vacuum phenomena. Right hemilaminect liliam L4. Mild posterior subluxation of L5 on S1. No high-grade stenosis. An approximately 16 x 10 x 8 (cc by AP by trans) retroperitoneal hematoma extends from the mid abdome n to the lower pelvis. It is incompletely evaluated on this exam. IMPRESSION: Negative for a lumbar fracture. Large left retroperitoneal hematoma extending from the mid abdomen to the lower pelvis. CT scan of th e abdomen/ pelvis with IV contrast is recommended Patient's nurse Michelle was notified 9:48 p.m. April 13, 2021
[2021-04-13] MEDS: NACHLORIDE 0.45% 1,000 ML IV SCH (22:13)
[2021-04-14] MEDS: INSULIN -REGULAR HUMAN 50 UNIT/0.5 ML ML SQ SCH ×6 (01:33→20:00)
[2021-04-14] MEDS: NACHLORIDE 0.45% 1,000 ML IV SCH ×2 (05:16→17:25)
[2021-04-14] MEDS: LEVOTHYROXINE SOD 0.088 MG TAB PO SCH (05:17)
[2021-04-14 06:23] LABS: Basophils % 0.2 % (0-1.3); Hematocrit 27.8 % (39.6-49.0); MPV 7.8 fL (7.6-11.3); RBC Red Blood Cell Count 3.11 M/uL (4.33-5.43)
[2021-04-14 06:46] LABS: Potassium 4.3 mmol/L (3.5-5.1)
[2021-04-14] MEDS: INSULIN GLARGINE 100 UNITS/ML SQ SCH (09:00)
[2021-04-14] MEDS: METOPROLOL XL 25 MG TAB PO SCH (09:04)
[2021-04-14] MEDS: SERTRALINE HCL 50 MG TAB PO SCH (09:04)
[2021-04-14] MEDS: TRAMADOL HCL 50 MG TAB PO PRN ×2 (09:20→11:55)
[2021-04-14] MEDS: ONDANSETRON 4 MG/2 ML VIAL IV PRN ×2 (09:20→14:14)
--- NOTE | 2021-04-14 11:01 | RAD REPORT ---
EXAM DESCRIPTION: CT - Abdomen Pelvis Wo Contrast - 04/14/2021 6:17 am CLINICAL HISTORY: 16cm retroperitoneal hematoma COMPARISON: None. TECHNIQUE: CT ABDOMEN PELVIS WITHOUT IV CONTRAST on 04/13/2021 10:05 PM CDT This exam was performed according to our departmental dose-optimization program, which includes autom ated exposure control, adjustment of the mA and/or kV according to patient size and/or use of iterati ve reconstruction technique. FINDINGS: Lower lungs are clear. Abdomen: The liver is normal in appearance. There is no biliary dilatation. Gallbladder contains a sm all calcified gallstone. The pancreas and spleen are normal in appearance. Left kidney is severely at rophic containing multiple coarse calcifications and small cysts. Right kidney contains at least five 3 to 5 mm calcifications as well as several cysts of varying sizes and densities. Right adrenal mass measures 3.1 cm. Left adrenal mass measures 3.7 cm. These likely represent adenomas. Abdominal aorta is densely calcified without aneurysm. IVC filter is in place. The IVC proximal to th e filter is hyperdense, raising the strong possibility of underlying thrombus. There is no free air. There is a large retroperitoneal hematoma within the left lower quadrant likely extending from the le ft psoas muscle. This measures maximally 12.2 cm AP, 9.3 cm transverse and at least 14 cm craniocauda l. Pelvis: There is large amount of stool in the distal colon. There is mild distal colonic diverticulos is. There is more moderate proximal colonic diverticulosis. Urinary bladder is displaced to the right . There is no free fluid. Appendix is normal. Skeleton: There are no acute osseous findings. No suspicious bony lesions. IMPRESSION: Large lower left retroperitoneal hematoma. Electronically signed by: Sumanth Gomez MD 04/13/2021 11:29 PM CDT Due to temporary technical issues with the PACS/Fluency reporting system, reports are being signed by the in house radiologists without review as a courtesy to insure prompt reporting. The interpreting radiologist is fully responsible for the content of the report.
[2021-04-14] MEDS: HYDROMORPHONE HCL 1 MG/ML INJ IV PRN (14:14)
--- NOTE | 2021-04-14 22:36 | P.PN ---
Subjective Date of Service: 04/14/21 Chief Complaint: BACK PAIN, LEG PAIN Subjective: No new changes MR. MARTINEZ CAME TO OFFICE YESTERDAY BROUGHT BY WITH SEVERE PAIN AND DISTENSION OF LEGS, SEVERE BACK PAIN. ON INVESTIGATIONS HE HAS BOTH SIDES SEVERE DVT BELOW HIS IVC FILTER PLACED MULTIPLE YEARS AGO AFTER BRAIN SURGERY. HE ALSO HAS LARGE RETROPERITONIAL HEMATOMA SP FALL A WEEK AGO. HE IS STILL IN PAIN. I HAVE BEEN ON PHONE WITH NURSES ALL EVENING YESTERDAY AND THIS AM ABOUT HIM. I ALSO CALLED HIS FIRER PORTABLE BOILER AND [facility] FIRER PORTABLE BOILER DR. SCHMITT. Review of Systems 10-point ROS is otherwise unremarkable General: Weakness, Malaise Musculoskeletal: Back Pain, As per HPI Physical Examination - Vital Signs Temperature: 99.7 F Blood Pressure: 115/56 Pulse: 75 Respirations: 16 Pulse Ox (%): 93 - Physical Exam General: Oriented x3, Moderate distress, Severe distress HEENT: Atraumatic, PERRLA, EOMI Neck: Supple, JVD not distended Respiratory: Clear to auscultation bilaterally, Normal air movement Cardiovascular: Regular rate/rhythm, Normal S1 S2, Edema Gastrointestinal: Normal bowel sounds, No tenderness Musculoskeletal: No tenderness Integumentary: No rashes Neurological: Normal speech, Normal tone, Normal affect Lymphatics: No axilla or inguinal lymphadenopathy - Studies Laboratory Data (last 24 hrs) 04/14/21 05:57: Sodium 136, Potassium 4.3, BUN 73 H, Creatinine 3.66 H, Glucose 109 H 04/14/21 05:57: WBC 11.00 H, Hgb 9.5 L, Hct 27.8 L, Plt Count 159 Microbiology Data (last 24 hrs): 04/13/21 21:13 Blood - Blood Anaerobic Blood Culture - Final Medications List Reviewed: Yes Assessment And Plan - Current Problems (Diagnosis) (1) DVT of lower extremity, bilateral Current Visit: Yes Status: Acute Plan: 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 HE HAS HAD MULTIPLE FACIAL SURGERIES ALSO FOR DEFORMED FACE AFTER PAROTID REMOVAL. I GAVE HIM A DOSE OF LOVENOX BEFORE I FOUND HE ALSO HAS LARGE RETROPERITONEAL HEAMTOMA. I TALKED TO HIS . WE ARE NOT ABLE TO TREAT DVT HE HAS LARGE HEMATOMA. HE MAY OR MAY NOT TOLERATE ELIQUIS OR XARELTO EVEN AFTER A FEW DAYAS. HIS PROGNOSIS IS POOR. (2) Retroperitoneal hematoma Current Visit: Yes Status: Acute Plan: SP FALL AT HOME. CONSERVATIVE TREATMENT. HOLD ANTICOAGULATION. HE WAS ONLY ON ASPIRIN BEFORE HE FELL AND AFTER. 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 HE IS HIGH RISK FOR STROKE AND OTHER THROMBOEMBOLIC EVENTS. Qualifiers: Atrial fibrillation type: unspecified chronic Qualified Code(s): I48.20 - Chronic atrial fibrillation, unspecified; I48.2 - Chronic atrial fibrillation (5) Cardiac tamponade Current Visit: Yes Status: Resolved (6) Acute renal failure Current Visit: Yes Status: Acute Plan: THIS CAN BE FROM PRERENAL STATUS AND OR SECONDARY TO RETROPERITONIAL HEMATOMA. HE MAY IMPROVE WITH IV FLUIDS. DAILY LAB. (7) Diabetes Current Visit: Yes Status: Acute Qualifiers: Diabetes mellitus type: type 2 (8) Nontraumatic retroperitoneal hematoma Current Visit: Yes Status: Acute - Code Status/Comfort Care Code Status Assessed: Yes
[2021-04-15] MEDS: NACHLORIDE 0.45% 1,000 ML IV SCH ×2 (05:27→14:58)
[2021-04-15] MEDS: INSULIN -REGULAR HUMAN 50 UNIT/0.5 ML ML SQ SCH ×6 (05:32→20:00)
[2021-04-15] MEDS: LEVOTHYROXINE SOD 0.088 MG TAB PO SCH (05:34)
[2021-04-15 07:21] LABS: Absolute Lymphocytes (CBC) 0.7 K/uL (0.7-4.9); Basophils % 0.4 % (0-1.3); Hematocrit 26.4 % (39.6-49.0); Lymphocytes % 6.6 % (15.3-44.8); MPV 7.1 fL (7.6-11.3); RBC Red Blood Cell Count 2.96 M/uL (4.33-5.43)
[2021-04-15 07:32] LABS: Potassium 4.4 mmol/L (3.5-5.1)
[2021-04-15] MEDS ORDERED: NITROGLYCERIN 0.4 MG/TAB SL ONE (08:51)
[2021-04-15] MEDS ORDERED: SODIUM CHLORIDE 0.9% 10ML INJ IV PRN (08:56)
[2021-04-15] MEDS: APIXABAN 2.5 MG TABLET PO SCH ×3 (09:00→20:22)
[2021-04-15] MEDS: SERTRALINE HCL 50 MG TAB PO SCH (09:06)
[2021-04-15] MEDS: METOPROLOL XL 25 MG TAB PO SCH (09:06)
[2021-04-15] MEDS: INSULIN GLARGINE 100 UNITS/ML SQ SCH (09:06)
[2021-04-15] MEDS: PANTOPRAZOLE 40 MG INJ IVP SCH (09:18)
--- NOTE | 2021-04-15 11:57 | P.PN ---
Subjective Date of Service: 04/15/21 Chief Complaint: BACK PAIN, LEG PAIN Subjective: Improving MR. MARTINEZ CAME TO OFFICE YESTERDAY BROUGHT BY WITH SEVERE PAIN AND DISTENSION OF LEGS, SEVERE BACK PAIN. ON INVESTIGATIONS HE HAS BOTH SIDES SEVERE DVT BELOW HIS IVC FILTER PLACED MULTIPLE YEARS AGO AFTER BRAIN SURGERY. HE ALSO HAS LARGE RETROPERITONIAL HEMATOMA SP FALL A WEEK AGO. HE IS STILL IN PAIN. I HAVE BEEN ON PHONE WITH NURSES ALL EVENING YESTERDAY AND THIS AM ABOUT HIM. I ALSO CALLED HIS MANAGER ERP AND [facility] MANAGER ERP DR. SCHMITT. HE LOOKS BETTER. HE HAS GERD,NAUSEA AND CHEST PAIN TODAY. PAIN IS RADIATING TO BACK MAY BE BUT HE IS NOT SURE. EKG SHOWS A FIB AND NO OTHER MAJOR FINDINGS. Review of Systems 10-point ROS is otherwise unremarkable General: Weakness Cardiovascular: As per HPI Physical Examination - Vital Signs Temperature: 98.2 F Blood Pressure: 145/70 Pulse: 78 Respirations: 16 Pulse Ox (%): 95 - Physical Exam General: Oriented x2, Mild distress HEENT: Atraumatic, PERRLA, EOMI Neck: Supple, JVD not distended Respiratory: Clear to auscultation bilaterally, Normal air movement Cardiovascular: Edema, Irregular heart rate/rhythm Gastrointestinal: Normal bowel sounds, No tenderness Musculoskeletal: No tenderness Integumentary: No rashes Neurological: Normal speech, Normal tone, Normal affect Lymphatics: No axilla or inguinal lymphadenopathy - Studies Laboratory Data (last 24 hrs) 04/15/21 07:10: Troponin I 0.02 04/15/21 07:10: Sodium 133 L, Potassium 4.4, BUN 77 H, Creatinine 2.59 H D, Glucose 143 H 04/15/21 07:10: WBC 10.60, Hgb 9.0 L, Hct 26.4 L, Plt Count 165 Microbiology Data (last 24 hrs): 04/13/21 21:13 Blood - Blood Anaerobic Blood Culture - Final Medications List Reviewed: Yes Assessment And Plan - Current Problems (Diagnosis) (1) DVT of lower extremity, bilateral Current Visit: Yes Status: Acute Plan: 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 HE HAS HAD MULTIPLE FACIAL SURGERIES ALSO FOR DEFORMED FACE AFTER PAROTID REMOVAL. I GAVE HIM A DOSE OF LOVENOX BEFORE I FOUND HE ALSO HAS LARGE RETROPERITONEAL HEAMTOMA. I TALKED TO HIS . WE ARE NOT ABLE TO TREAT DVT HE HAS LARGE HEMATOMA. HE MAY OR MAY NOT TOLERATE ELIQUIS OR XARELTO EVEN AFTER A FEW DAYAS. HIS PROGNOSIS IS POOR. START ELIQUIS HEMATOMA IN ABDOMEN MAY BE AT LEAST A WEEK OLD SINCE THE FALL. UNDERSTANDS. HE MAY HAVE HYPERCOAGULATION SYNDROME. (2) Retroperitoneal hematoma Current Visit: Yes Status: Acute Plan: SP FALL AT HOME. CONSERVATIVE TREATMENT. HOLD ANTICOAGULATION. HE WAS ONLY ON ASPIRIN BEFORE HE FELL AND AFTER. 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 HE IS HIGH RISK FOR STROKE AND OTHER THROMBOEMBOLIC EVENTS. Qualifiers: Atrial fibrillation type: unspecified chronic Qualified Code(s): I48.20 - Chronic atrial fibrillation, unspecified; I48.2 - Chronic atrial fibrillation (5) Cardiac tamponade Current Visit: Yes Status: Resolved (6) Acute renal failure Current Visit: Yes Status: Acute Plan: THIS CAN BE FROM PRERENAL STATUS AND OR SECONDARY TO RETROPERITONIAL HEMATOMA. HE MAY IMPROVE WITH IV FLUIDS. DAILY LAB. (7) Diabetes Current Visit: Yes Status: Acute Qualifiers: Diabetes mellitus type: type 2 (8) Nontraumatic retroperitoneal hematoma Current Visit: Yes Status: Acute (9) Chest pain Current Visit: Yes Status: Acute Plan: POSSIBLY GERD RELATED SEEMS NON CARDIAC HE HAD ST TEST A YEAR AGO NEG. HE MAY ALSO HAVE PE SO WE WILL START ELIQUIS TODAY. HIS PROGNOSIS IS GUARDED.
[2021-04-15] MEDS: TRAMADOL HCL 50 MG TAB PO PRN (12:52)
[2021-04-15] MEDS: HYDROMORPHONE HCL 1 MG/ML INJ IV PRN (14:58)
[2021-04-16] MEDS: NACHLORIDE 0.45% 1,000 ML IV SCH ×3 (01:00→20:13)
[2021-04-16] MEDS: INSULIN -REGULAR HUMAN 50 UNIT/0.5 ML ML SQ SCH ×6 (04:00→21:11)
[2021-04-16] MEDS: LEVOTHYROXINE SOD 0.088 MG TAB PO SCH (05:05)
[2021-04-16 06:16] LABS: Absolute Lymphocytes (CBC) 0.5 K/uL (0.7-4.9); Basophils % 0.1 % (0-1.3); Hematocrit 24.3 % (39.6-49.0); Lymphocytes % 5.4 % (15.3-44.8); MPV 7.3 fL (7.6-11.3); RBC Red Blood Cell Count 2.75 M/uL (4.33-5.43)
[2021-04-16 06:30] LABS: Potassium 4.3 mmol/L (3.5-5.1)
[2021-04-16] MEDS: ACETAMINOPHEN 325 MG TABLET PO PRN ×2 (06:44→21:10)
[2021-04-16] MEDS: METOPROLOL XL 25 MG TAB PO SCH (08:59)
[2021-04-16] MEDS: INSULIN GLARGINE 100 UNITS/ML SQ SCH (08:59)
[2021-04-16] MEDS ORDERED: INSULIN GLARGINE 100 UNITS/ML SQ SCH (09:00)
[2021-04-16] MEDS: PANTOPRAZOLE 40 MG INJ IVP SCH (09:19)
[2021-04-16] MEDS: APIXABAN 2.5 MG TABLET PO SCH ×2 (09:19→21:10)
[2021-04-16] MEDS: SERTRALINE HCL 50 MG TAB PO SCH (09:19)
--- NOTE | 2021-04-16 11:37 | P.PN ---
Subjective Date of Service: 04/16/21 Chief Complaint: BACK PAIN, LEG PAIN Subjective: Improving MR. MARTINEZ CAME TO OFFICE YESTERDAY BROUGHT BY WITH SEVERE PAIN AND DISTENSION OF LEGS, SEVERE BACK PAIN. ON INVESTIGATIONS HE HAS BOTH SIDES SEVERE DVT BELOW HIS IVC FILTER PLACED MULTIPLE YEARS AGO AFTER BRAIN SURGERY. HE ALSO HAS LARGE RETROPERITONIAL HEMATOMA SP FALL A WEEK AGO. HE IS STILL IN PAIN. I HAVE BEEN ON PHONE WITH NURSES ALL EVENING YESTERDAY AND THIS AM ABOUT HIM. I ALSO CALLED HIS PHYSICAL THERAPY TECHNICIAN AND [facility] PHYSICAL THERAPY TECHNICIAN DR. SCHMITT. HE LOOKS BETTER. HE HAS GERD,NAUSEA AND CHEST PAIN TODAY. PAIN IS RADIATING TO BACK MAY BE BUT HE IS NOT SURE. EKG SHOWS A FIB AND NO OTHER MAJOR FINDINGS. STABLE. CHEST PAIN IS MILDER. NO FEVER. LEGS ARE BETTER. Review of Systems 10-point ROS is otherwise unremarkable General: Weakness, Malaise Respiratory: As per HPI Cardiovascular: As per HPI Physical Examination - Vital Signs Temperature: 97.6 F Blood Pressure: 92/48 Pulse: 68 Respirations: 16 Pulse Ox (%): 95 - Physical Exam General: Oriented x2 HEENT: Atraumatic, PERRLA, EOMI Neck: Supple, JVD not distended Respiratory: Clear to auscultation bilaterally, Normal air movement Cardiovascular: Irregular heart rate/rhythm Gastrointestinal: Normal bowel sounds, No tenderness Musculoskeletal: No tenderness Integumentary: No rashes Neurological: Normal speech, Normal tone, Normal affect Lymphatics: No axilla or inguinal lymphadenopathy - Studies Laboratory Data (last 24 hrs) 04/16/21 05:43: Sodium 133 L, Potassium 4.3, BUN 80 H, Creatinine 2.52 H, Glucose 87 04/16/21 05:43: WBC 9.50, Hgb 8.5 L, Hct 24.3 L, Plt Count 172 Medications List Reviewed: Yes Assessment And Plan - Current Problems (Diagnosis) (1) DVT of lower extremity, bilateral Current Visit: Yes Status: Acute Plan: 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 HE HAS HAD MULTIPLE FACIAL SURGERIES ALSO FOR DEFORMED FACE AFTER PAROTID REMOVAL. I GAVE HIM A DOSE OF LOVENOX BEFORE I FOUND HE ALSO HAS LARGE RETROPERITONEAL HEAMTOMA. I TALKED TO HIS . WE ARE NOT ABLE TO TREAT DVT HE HAS LARGE HEMATOMA. HE MAY OR MAY NOT TOLERATE ELIQUIS OR XARELTO EVEN AFTER A FEW DAYAS. HIS PROGNOSIS IS POOR. START ELIQUIS HEMATOMA IN ABDOMEN MAY BE AT LEAST A WEEK OLD SINCE THE FALL. UNDERSTANDS. HE MAY HAVE HYPERCOAGULATION SYNDROME. Qualifiers: Chronicity: chronic (2) Retroperitoneal hematoma Current Visit: Yes Status: Acute Plan: SP FALL AT HOME. CONSERVATIVE TREATMENT. HOLD ANTICOAGULATION. HE WAS ONLY ON ASPIRIN BEFORE HE FELL AND AFTER. HOPEFULLY HEMOGLOBIN GETS STABLE. WILL WATCH IT DAILY. DVT NEEDS TO BE TREATED BUT IF HG DROPS WILL HAVE TO STOP ELIQUIS. SON IS AT BEDSIDE AND AWARE OF WHAT IS GOING ON. 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 HE IS HIGH RISK FOR STROKE AND OTHER THROMBOEMBOLIC EVENTS. Qualifiers: Atrial fibrillation type: unspecified chronic Qualified Code(s): I48.20 - Chronic atrial fibrillation, unspecified; I48.2 - Chronic atrial fibrillation (5) Cardiac tamponade Current Visit: Yes Status: Resolved (6) Acute renal failure Current Visit: Yes Status: Acute Plan: THIS CAN BE FROM PRERENAL STATUS AND OR SECONDARY TO RETROPERITONIAL HEMATOMA. HE MAY IMPROVE WITH IV FLUIDS. DAILY LAB. (7) Diabetes Current Visit: Yes Status: Acute Qualifiers: Diabetes mellitus type: type 2 (8) Nontraumatic retroperitoneal hematoma Current Visit: Yes Status: Acute (9) Chest pain Current Visit: Yes Status: Acute Plan: POSSIBLY GERD RELATED SEEMS NON CARDIAC HE HAD ST TEST A YEAR AGO NEG. HE MAY ALSO HAVE PE SO WE WILL START ELIQUIS TODAY. HIS PROGNOSIS IS GUARDED.
--- NOTE | 2021-04-16 14:33 | CON ---
Date of Consultation: 04/14/2021 Reason For Consultation: Consideration for IVC filter. History Of Present Illness: A 70-year-old male who was admitted with lower extremity edema and pain, found to have extensive DVT, started on anticoagulation, however, was found to have a large retroper itoneal hematoma. Apparently, had a fall just about a few days prior to the presentation, so anticoa gulants were stopped. A CT scan of abdomen and pelvis showed an IVC filter already is in place, whic h was done in [place] after an episode of DVT in the past as he could not tolerate anticoagulants. Past Medical History: Significant for DVT, atrial fibrillation, chronic kidney disease. Medications: Refer to reconciliation sheet for detailed list. Allergies: NO KNOWN DRUG ALLERGIES. Family History: No premature coronary artery disease or cancer. Social History: Does smoke or drink. Does not use any drugs. Review of Systems: All systems reviewed and they are negative except for what is mentioned in the HPI. Physical Examination: Vital Signs: Reviewed. Head and Neck: Pupils are equal, reactive to light. Intact eye movements. No JVD. No cervical lym phadenopathy. Neck: Supple. Thyroid is not enlarged. Lungs: Clear to auscultation bilaterally. No rhonchi, rales, or crackles. No accessory muscle use. Heart: Regular rate and rhythm. No extra sounds. Abdomen: Soft, nontender. Bowel sounds positive. No organomegaly. No masses or hernia. No rigidi ty or rebound. Extremities: No clubbing, cyanosis. Intact pulses. Skin: No rashes. Neurologic: Alert, awake, oriented x3. No acute focal deficits appreciated. Investigations: Labs were reviewed. Investigations: CT scan of abdomen and pelvis showed an IVC filter in place. Large retroperitoneal hematoma and venous Doppler showed extensive bilateral lower extremity DVT. Assessment And Recommendations: 1.Bilateral deep vein thrombosis. The patient already has an IVC filter in place. Not a candidate for anticoagulation due to a large retroperitoneal hematoma. This patient could benefit from a trans deon to higher level of care facility for a possible try of supervised anticoagulation trial once the retroperitoneal hematoma is stabilized, is partially protected with IVC filter. The patient understa nds that it is a difficult situation where anticoagulation is prohibited due to a large peritoneal he matoma. 2.Retroperitoneal hematoma. Monitor H and H closely. Transfuse if needed. Thank you for the consult. /KARLENE Voice ID: [id number] Report ID: [id number]
[2021-04-17] MEDS: NACHLORIDE 0.45% 1,000 ML IV SCH ×2 (02:17→06:13)
[2021-04-17] MEDS: INSULIN -REGULAR HUMAN 50 UNIT/0.5 ML ML SQ SCH ×4 (04:00→12:58)
[2021-04-17] MEDS: LEVOTHYROXINE SOD 0.088 MG TAB PO SCH (06:04)
[2021-04-17 07:08] LABS: Absolute Lymphocytes (CBC) 0.5 K/uL (0.7-4.9); Basophils % 0.2 % (0-1.3); Hematocrit 24.6 % (39.6-49.0); Lymphocytes % 7.9 % (15.3-44.8); MPV 7.3 fL (7.6-11.3); RBC Red Blood Cell Count 2.79 M/uL (4.33-5.43)
[2021-04-17 07:20] LABS: Potassium 3.9 mmol/L (3.5-5.1)
[2021-04-17] MEDS: INSULIN GLARGINE 100 UNITS/ML SQ SCH (09:00)
[2021-04-17] MEDS: PANTOPRAZOLE 40 MG INJ IVP SCH (10:46)
[2021-04-17] MEDS: METOPROLOL XL 25 MG TAB PO SCH (10:46)
[2021-04-17] MEDS: SERTRALINE HCL 50 MG TAB PO SCH (10:46)
[2021-04-17] MEDS: APIXABAN 2.5 MG TABLET PO SCH (10:47)
[2021-04-17] MEDS: TRAMADOL HCL 50 MG TAB PO PRN (10:54)
[2021-04-17 11:09] VITALS: O2SAT 96
[2021-04-17 12:24] VITALS: BP 136/73; TEMP 98.5
--- NOTE | 2021-04-17 21:40 | P.DS ---
Admission Date: 04/14/21 Discharge Date: 04/17/21 Disposition: TRANSFER TO INPATIENT REHAB Discharge Condition: FAIR Reason for Admission: BACK PAIN, LEG PAIN - Problems (1) DVT of lower extremity, bilateral Status: Acute Qualifiers: Chronicity: chronic (2) Retroperitoneal hematoma Status: Acute (3) Parotid lymphoepithelial carcinoma Status: Acute (4) A-fib Status: Chronic Qualifiers: Atrial fibrillation type: unspecified chronic Qualified Code(s): I48.20 - Chronic atrial fibrillation, unspecified; I48.2 - Chronic atrial fibrillation (5) Acute renal failure Status: Acute (6) Diabetes Status: Acute Qualifiers: Diabetes mellitus type: type 2 (7) Nontraumatic retroperitoneal hematoma Status: Acute (8) Chest pain Status: Acute Hospital Course: MR. PAULSON HAS HAD PAROTID CANCER SP SURGERY, HAS HAD A FIB, CARDIAC TAMPONADE WITH HEMOPERICARDIUM AND SINCE THEN NOT ON ANTICOAGULATION. HE AT HOME FELL AND HIT BACK, HAS HAD SEVERE SWELLING OF BOTH LEGS. HIS UMBERTO HIM TO MY OFFICE I ADMITTED HIM WITH SUSPICION OF DVT, WHICH HE HAD BILATERAL EXTENSIVE DVT BELOW IVC FILTER. HE ALSO HAS LARGE HEMATOMA IN RETROPERITONEUM. I COULD NOT GIVE HIM ANTICOAGULATION INITIALLY BUT I THOUGHT HIS HEMATOMA MAY HAVE ORGANIZED OVER A WEEK SO DECIDED TO TRY ELIQUIS HE HAS SEVERE DVT. HE TOLERATED IT WELL. HE ALSO HAD DEHYDRATION THAT IMPROVED WITH IV FLUIDS. HE IS NOT SENT TO REHAB FLOOR. Vital Signs/Physical Exam: Temp Pulse Resp BP Pulse Ox 98.5 F 90 18 136/73 98 04/17/21 12:00 04/17/21 12:00 04/17/21 12:00 04/17/21 12:00 04/17/21 12:00 Laboratory Data at Discharge: WBC 6.00 K/uL (4.3-10.9) D 04/17/21 06:45 Hgb 8.6 g/dL (13.6-17.9) L 04/17/21 06:45 Hct 24.6 % (39.6-49.0) L 04/17/21 06:45 Plt Count 192 K/uL (152-406) 04/17/21 06:45 PT 14.1 SECONDS (9.5-12.5) H 04/13/21 21:13 INR 1.22 04/13/21 21:13 APTT 26.0 SECONDS (24.3-36.9) 04/13/21 21:13 Sodium 138 mmol/L (136-145) 04/17/21 06:45 Potassium 3.9 mmol/L (3.5-5.1) 04/17/21 06:45 BUN 68 mg/dL (7-18) H 04/17/21 06:45 Creatinine 1.61 mg/dL (0.55-1.3) H 04/17/21 06:45 Glucose 92 mg/dL (74-106) 04/17/21 06:45 Phosphorus 6.1 mg/dL (2.5-4.9) H 04/13/21 18:30 Magnesium 2.8 mg/dL (1.8-2.4) H 04/13/21 18:30 Total Bilirubin 1.0 mg/dL (0.2-1.0) 04/13/21 18:30 AST 21 U/L (15-37) 04/13/21 18:30 ALT 22 U/L (12-78) 04/13/21 18:30 Alkaline Phosphatase 59 U/L (45-117) 04/13/21 18:30 Troponin I 0.02 ng/mL (0.0-0.045) 04/15/21 07:10 Home Medications: Atorvastatin Calcium [Lipitor*] 5 mg PO DAILY 07/02/13 Fenofibrate [Tricor*] 145 mg PO DAILY 07/02/13 Sertraline [Zoloft*] 100 mg PO DAILY 07/02/13 Levothyroxine [Synthroid*] 88 mcg PO [id number] 04/13/21 Metoprolol Succinate [Toprol Xl*] 25 mg PO DAILY 04/13/21 Apixaban [Eliquis *] 2.5 mg PO BID tablet 04/17/21 Diphenhydramine [Benadryl*] 25 mg PO BEDTIME PRN PRN tab 04/17/21 Insulin -Regular Human [Novolin -R*] See Protocol SQ Q4H ml 04/17/21 Insulin Glargine Human [Lantus*] 15 units SQ DAILY ml 04/17/21 traMADol HCL [Ultram*] 50 mg PO Q4H PRN tab 04/17/21 Physician Discharge Instructions: PROBLEM: Fall, Retroperitoneal Hematoma GOAL: Clear understanding of disease process INSTRUCTIONS: - Discharge to inpatient rehab. - Follow up with Dr. Roman 1 week after discharge from Rehab. - Take all medications as prescribed. - Return to the ER if your symptoms worsen. - Call the 2nd floor at if you have any questions regarding your hospital stay. Diet: 1800 calorie diabetic diet Activity: Fall precautions COMMUNITY SERVICES Services Needed: Inpatient Rehab Name of Company: [employer] [facility] [place], [place] Date or Referral: 04/17/21 IMMUNIZATION Influenza Vaccine Indicated: Influenza Vaccine Given: Date Given: Pneumonia Vaccine Indicated: No Pneumonia Vaccine Given: Date Given: Followup: Wei Roman MD [ACTIVE - CAN ADMIT] -
[2021-04-19 01:43] LABS: Vitamin D 1,25-Dihydroxy Total 40 pg/mL (18-72); Vitamin D,1,25-OH2, D2 <8 pg/mL
--- NOTE | 2021-04-20 11:32 | PN ---
Date of Progress Note: 04/17/2021 Admitted on 04/14/[address] Roman, was being followed by Dr. Carroll. I saw the patient on 04/17/20. He has retroperitoneal hematoma; DVT; as well as an IVC filter; mild anemia, hemoglobin of 8.6. He is in sinus rhythm. Has had a history of paroxysmal atrial fibrillation. Has chronic renal dise ase that has improved. His last creatinine was 2.52, down to 1.6. His hemoglobin is 8.6. He is now on Eliquis low-dose 2.5 mg b.i.d. I discussed the case further with Dr. Roman. I think he requires a hematological workup to rule out any coagulopathy. Specifically, the factor V midline. Dr. Roman has ordered these labs already. I agree with his present regimen. I will be happy to see him in [facility] office as an outpatient. RAFAEL/KARLENE Voice ID: [id number] Report ID: [id number]
[2021-04-20 14:08] LABS: Protein C Antigen 102 % (70-140)
[2021-04-21 05:00] LABS: VITAMIN B1-THIAMINE 155 nmol/L (78-185)
== END 2021-04-17 15:46 | DRG 300 ==
LOC: 2ND 16:56 → OBSVTOIN 04-14 12:43 → 2ND 04-14 22:20
PROVIDERS: ADMIT Internal Medicine; ATTEND Internal Medicine
DX: I82.413 Acute embolism and thrombosis of femoral vein, bilateral (principal); S36.892A Contusion of other intra-abdominal organs, initial encounter; I48.20 Chronic atrial fibrillation, unspecified; N17.9 Acute kidney failure, unspecified; I31.4 Cardiac tamponade; I82.433 Acute embolism and thrombosis of popliteal vein, bilateral; I82.443 Acute embolism and thrombosis of tibial vein, bilateral; W19.XXXA Unspecified fall, initial encounter; C07 Malignant neoplasm of parotid gland; E11.9 Type 2 diabetes mellitus without complications; E86.0 Dehydration; Z20.822 Contact with and (suspected) exposure to COVID-19
CPT/HCPCS: 36415; 71045; 72131; 74176; 80048; 80076; 81003; 81241; 82043; 82570; 82607; 82652; 82947; 83036; 83735; 84100; 84425; 84443; 84484; 85025; 85302; 85305; 85306; 85610; 85730; 86147; 87040; 93005; 93970; 97116; 97161; C9113; G0378; J1170; J1650; J1815; J2405; U0003

== ENCOUNTER 2021-04-17 09:44 | Inpatient (IN) | payer OTHER ==
--- NOTE | 2021-04-17 14:32 | R.PREADM ---
PRE-ADMISSION SCREENING FORM SCREENING DATE AND TIME 04/17/2021 11:45 (CDT) ANTICIPATED REHAB ADMISSION DATE 04/19/2021 REFERRING FACILITY [facility] REFERRAL DATE AND TIME 04/17/2021 11:45 (CDT) REFERRAL ROOM# 202 ACUTE ADMIT DATE 04/17/2021 Previous Rehabilitation(s): No. ACUTE DIRECTOR CORPORATE SECURITY/DC LEAD JAVA J2EE DEVELOPER Liza ATTENDING PHYSICIAN SHANNON MCGEE REFERRING PHYSICIAN [facility] CLINICAL LIAISON Jesus Francisco PHYSICIAN REVIEWER Dr. Jaya Addison M.D. MR# [id number] NAME LEXY PAULSON ADDRESS [address] [facility] [id number] DATE OF 1950 AGE 70 SSN# [id number] GENDER male MARITAL STATUS PREF. LANGUAGE (IF NON-LUXEMBOURGISH) Malagasy ADMIT FROM 02 - [facility] PRE-HOSPITAL LIVING SETTING 01 - Home (private home/apt. board/care, assisted living, jail, transitional living) HOME TYPE AND DETAILS # of levels in the residence: 2 PRE-HOSPITAL LIVING WITH Family/Relatives FAMILY SUPPORT Yes PRIMARY FAMILY CONTACT NAME DANY PAULSON PRIMARY FAMILY CONTACT PHONE PRIMARY FAMILY CONTACT RELATIONSHIP Spouse PHONE PRIMARY FAMILY CONTACT ON ADM.? no IS PRIMARY FAMILY CONTACT AUTH. REP.? no 1ST EMERGENCY CONTACT DANY PAULSON 1ST CONTACT PHONE 1ST CONTACT RELATIONSHIP Spouse PHONE 1ST CONTACT ON ADM. no IS 1ST CONTACT AUTH. REP.? no PHONE 2ND CONTACT ON ADM.? no PATIENT EMPLOYMENT STATUS Retired (for age) PATIENT EMPLOYER No Employer PAYOR INFORMATION: 1ST PAYOR NAME MEDICARE 1ST PAYOR PHONE 1ST PAYOR INJURY/ILLNESS DUE TO ACCIDENT? No ANOTHER REPUBLICAN RESPONSIBLE? No PRIMARY REHAB/ACUTE DIAGNOSIS: CARDIOVASCULAR STRESS,AFIB,CARDIAC TAMPONADE,CHEST PAIN ONSET DATE 04/14/2021 REHAB IMPAIRMENT CATEGORY (DIEGO): 14 Cardiac does NOT meet 60% rule PRIMARY DIAGNOSIS-RELATED SURGERIES: N/A RISK FOR COMPLICATIONS: - N/A CARDIOVASCULAR STRESS TEST ABNORMAL DVT OF LOWER EXTREMITY, BILATERAL RETROPERITOMEAL PAROTID LYMPHOEPITHELIAL CARCINOMA A-FIB CARDIAC TAMPONADE ACUTE RENAL FAILURE DIABETES NONTRAUMATIC RETROPERITONEAL HEMATOMA CHEST PAIN SUMMARY OF ACUTE HOSPITALIZATION: Pt. is a 70 yo Right-handed male. On 04/14/2021 he was admitted to [facility] with diagnosis CARDIOVASCULAR STRESS,AFIB,CA RDIAC TAMPONADE,CHEST PAIN. His impairment category is Cardiac 09 - Cardiac Disorders (09). Pre-morbidly, Pt. was independent/mod-I in Locomotion, Transfers Control, Self-Care, Endurance, and C ommunication; and he had good Social Cognition, Balance, and Sphincter Control. Currently, he has deficits of Locomotion, Safety Awareness, Balance, Transfers Control, Sphincter Con trol, and Endurance. Pt. is now referred to [facility] for acute in-patient rehabilitation in order to maximize patient's functional independence in activities of daily living, strength, ROM, and mobi lity. Patient has realistic goal of being discharged at assistance level 7-Ind to reside at Home with Fami ly/Relatives. PAST MEDICAL HISTORY BACK PAIN LYMPHOEPITHELIAL CARCINOMA AFIB ARF DM PAROTID CA GERD CVA FALLS PAST SURGICAL HISTORY: BRAIN SURGERY MEDICATION ALLERGIES: No Known Drug Allergies (NKDA) ENVIRONMENTAL ALLERGIES: - Substance Allergies None Known - Other Allergies None Known CODE STATUS: Full code WEIGHT/HEIGHT/BMI: WEIGHT 208 lbs HEIGHT 5' 9" BMI 30.7 DIET: - Diet Type Regular - Diet - Solid Texture Regular - Diet - Liquid Texture Regular - Tube Feed N/A REVIEW OF SYSTEMS: - Gen Alert and awake Lying in bed No apparent distress Oriented to: person, time, and place - Vital Signs Temperature: 98.6 F SBP/DBP: 113/62 Pulse: 63 Resp: 16 Vital signs stable, afebrile - CVS RRR VITAL SIGNS Temperature: 98.6 F SBP/DBP: 113/62 Pulse: 63 Resp: 16 Vital signs stable, afebrile MEDICATIONS/TREATMENT: Other- See attached MAR (Medication Administration Record). CURRENT SPHINCTER CONTROL: Pre-hospital bladder status: unspecified # of bladder accidents in the last 7 days prior to screenin Pre-hospital bowel status: unspecified # of bowel accidents in the last 7 days prior to screenin Last Bowel Movement Date: 04/17/2021 CURRENT LOCOMOTION STATUS: distance walked 40 feet WITH RW DETAILED CURRENT FUNCTIONAL STATUS: - Bladder accident frequency: 7-Ind - No accidents in the past 7 days - Bowel accident frequency: 7-Ind - No accidents in the past 7 days - Walking score based on distance walked: 0(N/A) score based on distance walked: 1(<=50ft) - Wheelchair score based on distance traveled: 0(N/A) QI SCORES: - Self-Care A. Eating 03-Partial/moderate assistance B. Oral hygiene 03-Partial/moderate assistance C. Toileting hygiene 03-Partial/moderate assistance E. Shower/bathe self 03-Partial/moderate assistance F. Upper body dressing 03-Partial/moderate assistance G. Lower body dressing 03-Partial/moderate assistance H. Putting on/taking off footwear 88-Not attempted due to medical condition or safety concerns - Mobility A. Roll left and right 03-Partial/moderate assistance B. Sit to lying 03-Partial/moderate assistance C. Lying to sitting on side of bed 03-Partial/moderate assistance D. Sit to stand 03-Partial/moderate assistance E. Chair/rme-hg-huzdr transfer 03-Partial/moderate assistance F. Toilet transfer 03-Partial/moderate assistance G. Car transfer 88-Not attempted due to medical condition or safety concerns I. Walk 10 feet 03-Partial/moderate assistance J. Walk 50 feet with two turns 88-Not attempted due to medical condition or safety concerns K. Walk 150 feet 88-Not attempted due to medical condition or safety concerns L. Walking 10 feet on uneven surfaces 88-Not attempted due to medical condition or safety concerns M. 1 step (curb) 88-Not attempted due to medical condition or safety concerns N. 4 steps 10-Not attempted due to environmental limitations O. 12 steps 10-Not attempted due to environmental limitations P. Picking up object 88-Not attempted due to medical condition or safety concerns R. Wheel 50 feet with two turns 88-Not attempted due to medical condition or safety concerns S. Wheel 150 feet 88-Not attempted due to medical condition or safety concerns - Bladder and Bowel Bladder continence Bowel continence - Endurance Poor - Balance Poor - Safety Awareness Fair CURRENT FUNC. DEFICITS: Self-Care, Mobility, Endurance, Balance, and Safety Awareness CURRENT / PREVIOUS ASSISTIVE DEVICES: Rolling Walker HISTORY OF FALLS. HAS THE PATIENT HAD TWO OR MORE FALLS IN THE PAST YEAR OR ANY FALL WITH INJURY IN T HE PAST YEAR?: Yes PRIOR SURGERY. DID THE PATIENT HAVE MAJOR SURGERY DURING THE 100 DAYS PRIOR TO ADMISSION?: No THERAPY NOTES FROM ACUTE CARE: Attached. SPECIAL NEEDS: - Safety Concerns Skin breakdown precautions needed due to skin breakdown risk PATIENT NEEDS ACTIVE AND ONGOING THERAPEUTIC INTERVENTION OF MULTIPLE THERAPY DISCIPLINES, INCLUDING: - Dietary and Nutrition Adequate Nutrition. Nutritional Education. Nutritional Supplements. PATIENT NEEDS CLOSE MEDICAL SUPERVISION BY A REHABILITATION PHYSICIAN FOR: Coordination of Treatment Team Post-Op Complications PATIENT REQUIRES 24X7 REHAB NURSING FOR MEDICAL AND FUNCTIONAL MGT. OF THE FOLLOWING DEFICITS: Disease Management Medication Management Patient/Family Education Providing Safe Environment PATIENT REQUIRES INTENSIVE, COORDINATED INTERDISCIPLINARY APPROACH TO REHAB: Arranging Home Equipment/Services Discharge Planning Family Intervention/Training Frit Coater/Case Management PATIENT REHAB POTENTIAL: Carlin PAULSON is able and expected to receive 3 hours of individualized therapy daily on at least 5 of e very 7 days Carlin PAULSON'lisa prognosis for significant practical improvement within a reasonable period of time appea rs Good Expected level of measurable improvement will be of a practical value to Carlin PAULSON's functional capa city or adaptations to impairments Has a viable Discharge Plan Medically appropriate; condition is sufficiently stable to participate in intensive rehab program DISCHARGE PLAN: - Estimated Length of Stay (days) 10. - Consensus on plan Discharge plan has been discussed with primary caregiver. Patient/Family is in agreement with the arti n. Primary caregiver is in agreement with the plan. - Patient/Family Goals Return home independently. - Planned Living Setting Upon Discharge Home, to live with Family/Relatives. Transitional Living. RECOMMENDED CARE LEVEL: IRF RECOMMENDATION DETAILS: Recommended Admission to Comprehensive Rehabilitation Program to Increase Functional [place] SCREENER'S COMPLETENESS CONFIRMATION: - Screening Confirmation The patient data collection on this preadmission screening form is finished PHYSICIANS REVIEW AND ADMISSION DETERMINATION Admit - Based on my review of the Pre-Admission Screening results, in my medical judgment and experie nce, I concur with the findings and recommend admission to [facility], as this patient requires an IRF level of care. SIGNATURE PANEL: Medical Doctor Md - [electronically] signed by Jeuss Francisco on 04/17/2021 at 14:11 (CDT) Medical Doctor Md - [electronically] signed by Haresh Martinez PT on 04/17/2021 at 14:16 (CDT) Physician Reviewer - [electronically] signed by Dr. Jaya Addison M.D. on 04/17/2021 at 14:31 (T )
--- OUTSIDE RECORDS SUMMARY | 2021-04-17 15:55 | XMS REPORT | Continuity of Care Document ---
:1950 Author Organization [facility] t Address 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 Clinician (SIG) Name Name Carac 0.5 % Carac 0.5 % 2018- Yes PIERRE HO APPLY THIN Univers External External 8-29 M.D. FILM TO ity of Cream Cream 00:00: AFFECTED [place] 00 AREA(S) AT [facility] BEDTIME. ans Tricor 145 Tricor 145 2006- Yes QD TAKE 1 Univers MG Oral MG Oral 3-28 TABLET ity of Tablet Tablet 00:00: DAILY [place] 00 Physici ans Lantus SOLN Lantus SOLN Yes [facility] Sertraline Sertraline Yes Uni vers HCl TABS HCl TABS [facility] ans Atorvastati Atorvastati Yes U nivers n Calcium n Calcium ity o f TABS TABS [facility] ans Victoza 18 Victoza 18 Yes Uni vers MG/3ML SOLN MG/3ML SOLN i [facility] ans Losartan Losartan Yes Univers Potassium-H Potassium-H i ty of CTZ CTZ [place] 100-12.5 MG 100-12.5 MG P hysici Oral Tablet Oral Tablet a ns Levothyroxi Levothyroxi Yes U nivers ne Sodium ne Sodium ity o f TABS TABS [facility] Aspirin Aspirin Yes Univers TABS TABS [facility] ans Fenofibrate Fenofibrate Yes U nivers 145 MG Oral 145 MG Oral i ty of Tablet Tablet [facility] ans Xigduo XR Xigduo XR Yes Unive rs TB24 TB24 [facility] ans Metoprolol Metoprolol Yes Uni vers Tartrate Tartrate ity of TABS TABS [place] Physici ans Metoprolol Metoprolol Yes Uni vers Tartrate Tartrate ity of TABS TABS [place] Physici ans Vital Signs Vital Name Observation Time Observation Value Comments Source Weight 2020-12-29 202 [lb_av] University 10:32:00 [place] [facility] Body temperature 2020-12-29 96.8 [degF] University 10:32:00 [place] [facility] Body height 2020-12-29 69 [in_us] University of 10:32:00 [place] [facility] Body mass index 2020-12-29 29.83 kg/m2 [place] f (BMI) [Ratio] 10:32:00 [place] [facility] Body height 2020-12-29 69 [in_us] [facility] 09:07:00 [place] [facility] Body mass index 2020-12-29 29.83 kg/m2 [place] f (BMI) [Ratio] 09:07:00 [place] [facility] Weight 2020-12-29 202 [lb_av] [facility] 09:07:00 [place] Physician s Body temperature 2020-12-29 96.8 [degF] Method: [facility] 09:07:00 [facility] [place] [facility] Body height 2020-10-24 69 [in_us] University 09:52:00 [place] [facility] Weight 2020-10-24 201 [lb_av] University of 09:52:00 [place] [facility] Body mass index 2020-10-24 29.68 kg/m2 [place] f (BMI) [Ratio] 09:52:00 [place] [facility] Body temperature 2020-10-24 97.1 [degF] [facility] 09:52:00 [place] [facility] Body height 2020-07-25 69 [in_us] University 09:44:00 [place] [facility] Weight 2020-07-25 200 [lb_av] University 09:44:00 [place] [facility] Body mass index 2020-07-25 29.54 kg/m2 University o f (BMI) [Ratio] 09:44:00 [place] [facility] Body temperature 2020-07-25 97.2 [degF] [facility] 09:44:00 [place] [facility] Body height 2020-06-23 69 [in_us] [facility] 09:39:00 [place] [facility] Body mass index 2020-06-23 29.54 kg/m2 University o f (BMI) [Ratio] 09:39:00 [place] [facility] Weight 2020-06-23 200 [lb_av] University [...] [place] [facility] Weight 2020-01-25 173 [lb_av] [place] of 13:04:00 [place] [facility] s Body mass [...] s BP Systolic 2019-10-26 123 mm[Hg] Location: [facility] 13:42:00 Position: [place] Physician s Sitting BP Diastolic 2019-10-26 71 mm[Hg] Location: [facility] 13:42:00 Position: [place] Physician s Sitting Height [...] Physician s Temperature 2019-07-30 98.1 [degF] University 10:39:00 [place] [facility] Heart Rate 2019-07-30 60 /min [facility] 10:39:00 [place] [facility] BP Systolic 2019-06-22 141 mm[Hg] University 09:46:00 [place] [facility] BP Diastolic 2019-06-22 81 mm[Hg] University 09:46:00 [place] [facility] Height 2019-06-22 69 [in_us] [facility] 09:46:00 [place] [facility] Weight 2019-06-22 167.375 [lb_av] [place] 09:46:00 [place] [facility] Body Mass Index 2019-06-22 24.72 kg/m2 University o f Calculated 09:46:00 [place] [facility] s Temperature 2019-06-22 97.9 [degF] [facility] 09:46:00 [place] [facility] Heart Rate 2019-06-22 64 /min [facility] 09:46:00 [place] [facility] BP Systolic 2019-05-21 138 mm[Hg] Position: [facility] 10:16:00 Sitting [place] [facility] s BP Diastolic 2019-05-21 82 mm[Hg] Position: [facility] 10:16:00 Sitting [place] [facility] s Height 2019-05-21 69 [in_us] [facility] 10:16:00 [place] [facility] Weight 2019-05-21 161 [lb_av] [facility] 10:16:00 [place] [facility] Body Mass Index 2019-05-21 23.78 kg/m2 University o f Calculated 10:16:00 [place] [facility] s Temperature 2019-05-21 98.6 [degF] Method: Oral University of 10:16:00 [place] [facility] Heart Rate 2019-05-21 53 /min Quality: Normal University o 10:16:00 [place] [facility] s BP Systolic 2019-04-30 117 mm[Hg] Location: [facility] 13:35:00 Position: [place] Physician s Sitting BP Diastolic 2019-04-30 73 mm[Hg] Location: [facility] 13:35:00 Position: [place] Physician s Sitting Height 2019-04-30 69 [in_us] University 13:35:00 [place] [facility] Weight 2019-04-30 161 [...] s BP Systolic 2018-11-06 102 mm[Hg] Location: [facility]; [facility] 12:39:00 Position: [place] Physician s Sitting BP Diastolic 2018-11-06 62 mm[Hg] Location: [facility]; [facility] 12:39:00 Position: [place] Physician s Sitting Height [...] s BP Systolic 2018-10-09 124 mm[Hg] Location: [facility] 14:18:00 Position: [place] Physician s Sitting BP Diastolic 2018-10-09 63 mm[Hg] Location: [place]; [facility] 14:18:00 Position: [place] Physician s Sitting Height 2018-10-09 71 [in_us] [facility] 14:18:00 [place] [facility] Weight 2018-10-09 205 [lb_av] University 14:18:00 [place] [facility] Body Mass Index 2018-10-09 28.59 kg/m2 University o f Calculated 14:18:00 [place] [facility] Temperature 2018-10-09 97.9 [degF] Method: Oral University 14:18:00 [place] [facility] Heart Rate 2018-10-09 64 /min Location: [place] [facility] 14:18:00 Brachial [place] Physician s Artery; BP Systolic 2018-07-07 109 [...] Performed PET CT Head/Neck CA 2020-11-14 00:00:00 [facility] initial staging [address] Neck soft tissue w 2020-01-25 00:00:00 [facility] contrast [address] Chest w contrast 2020-01-25 00:00:00 [facility] [address] Chest w contrast 2019-07-30 00:00:00 [facility] [address] Neck soft tissue w 2019-07-30 00:00:00 [facility] contrast [address] Chest w contrast 2019-03-23 00:00:00 [facility] [address] Neck soft tissue w 2019-03-23 00:00:00 [facility] contrast [address] Abd Renal Protocol 2018-11-06 00:00:00 [facility] w/wo IV contrast Physicians [id number] Head/Neck CA 2018-10-12 00:00:00 [facility] initial staging 25092 Physicians History of Heart Valve [facility] [place] Replacement Physicians History of Hernia [facility] Repair Physicians Plan of Care Planned Activity Planned Date Details Comments Source Future Scheduled 2021-04-23 INFLUENZA VACCINE [place] [facility] 00:00:00 [code = INFLUENZA VACCINE] Diagnostic Test 2018-10-[address] Head/Neck CA [facility] Pending 00:00:00 initial staging 11887 Physic ians [code = 88291] Future Scheduled 1998 SHINGLES VACCINES [place] [facility] 00:00:00 (#1) [code = SHINGLES VACCINES (#1)] Future Scheduled 1998 COLONOSCOPY SCREENING [place] [facility] 00:00:00 [code = COLONOSCOPY SCREENING] Future Scheduled 1966 Hepatitis C screening [place] [facility] 00:00:00 (procedure) [code = 981328763] Future Scheduled 1960 COVID-19 VACCINE (1) [place] [facility] 00:00:00 [code = COVID-19 VACCINE (1)] Future Scheduled 1958 DIABETES: RETINAL EYE [place] [facility] 00:00:00 EXAM [code = DIABETES: RETINAL EYE EXAM] Future Scheduled 1958 DIABETIC FOOT EXAM [place] [facility] 00:00:00 [code = DIABETIC FOOT EXAM] Future Scheduled 1958 URINE MICROALBUMIN [place] [facility] 00:00:00 [code = URINE MICROALBUMIN] Future Scheduled 1954 65+ PNEUMOCOCCAL [place] [facility] 00:00:00 VACCINE (1 of 4 - PCV13) [code = 65+ PNEUMOCOCCAL VACCINE (1 of 4 - PCV13)] Encounters Start End Encounter Admission Attending Care Care Encounter Source Date/Time Date/Time Type Type Clinicians Facility Department ID 2021-03-24 Outpatient OSCAR GABBY [facility] [id number] [place] 01:05:04 [facility] 2021-03-09 Outpatient NERY [facility] [id number] [place] 09:25:23 Critical access hospital 2021-03-06 Outpatient GABBY MOORE [facility] [id number] [place] 13:42:41 [facility] 2021-03-06 Outpatient GABBY MOORE [facility] [id number] [place] 12:36:12 [facility] 2021-02-15 Outpatient POLLO PANDA [facility] [id number] [place] 12:23:06 [facility] 2021-01-28 Outpatient GABBY MOORE [facility] [id number] [place] 03:35:47 Health 2021-01-28 Outpatient POLLO PANDA [facility] [id number] [place] 03:35:47 [facility] 2021-03-09 2021-03-09 Office Pollo Panda 6400 [id number] 07:34:19 08:11:[address] [id number] 9.2.7.2.686 [id number] 2021-03-06 2021-03-06 Office Gabby Moore 6400 [id number] 12:36:04 13:43:[address] 350.1.13.58 9.2.7.2.686 [id number] 2021-03-01 2021-03-01 Telephone ROXY Faulkner 6400 [id number] 00:00:00 00:00:[address] [id number] 9.2.7.2.686 [id number] 2021-02-21 2021-02-21 Outpatient [facility] [address] [facility] 05:32:00 05:32:00 2021-02-21 2021-02-21 Outside Gabby Moore 6400 [id number] 00:00:00 00:00:[address] [id number] 9.2.7.2.686 [id number] 2021-02-13 2021-02-13 Telephone Pollo Panda 6400 [id number] 00:00:00 00:00:[address] [id number] 9.2.7.2.686 [id number] 2020-12-29 2020[facility]ABBY MOORE UTP [facility] 7 [id number] Univers 10:00:00 10:00:00 t; Praful MOORE yngology - ity of Pra[place] PIERRE [facility] ans 2020-12-29 2020-12-29 AppointPOLLO Chadwick UTP [facility] [id number] Univers 09:15:00 09:15:00 t; Praful PANDA yngology - i ty of Pra[place] ABAD [facility] ans 2020-11-14 2020-11-14 AppointPOLLO Chadwick UTP [place] [id number] Univers 09:15:00 09:15:00 t; Praful PANDA yngology - i ty of Praful ABAD [facility] 2020-10-24 2020-10-24 GABBY Rojas UTP [facility] 7 [id number] Univers 10:00:00 10:00:00 t; Pra[place] MOOREngology - ity ana PIERRE M.D. [facility] 2020-07-25 2020-07-25 GABBY Rojas UTP [facility] 6 [id number] Univers 09:30:00 09:30:00 t; Praful MOOREngology - ity ana PIERRE M.D. [facility] 2020-07-12 2020-07-12 [facility] [id number] [facility] 05:51:00 05:51:00 2020-06-23 2020-06-23 GABBY Rojas UTP [place] 6 [id number] Univers 10:00:00 10:00:00 t; Praful MOORE yngology - ity ana PIERRE M.D. [facility] ans 2020-06-23 2020-06-23 POLLO Pablo UTP [facility]tor[place] [id number] Univers 08:30:00 08:30:00 t; Praful PANDA yngology - i ty of Praful ABAD [facility] ans 2020-04-25 2020-04-25 AppointPOLLO Chadwick UTP UTP [id number] Univers 14:00:00 14:00:00 t; Praful PANDA ity ana ABAD M.D. [facility] 2020-01-25 2020-01-25 AppointPOLLO Chadwick UTP [place]tor[place]olar [id number] Univers 14:00:00 14:00:00 t; Praful PANDA yngology - i ty of Pra[place] ABAD [facility] 2020-01-25 2020-01-25 Appointmen GABBY MOORE UTP [place] 6 [id number] Univers 13:00:00 13:00:00 t; Praful MOOREngology - ity ana PIERRE M.D. [facility] 2019-10-26 2019-10-26 AppointGABBY Malik UTP [place]tor[place] 6 [id number] Univers 13:15:00 13:15:00 t; Praful MOOREology - itAyden M.D. [facility] 2019-10-26 2019-10-26 AppointPOLLO Chadwick UTP [facility] [id number] Univers 13:15:00 13:15:00 t; Praful PANDAngology - i ty of [place] ABAD [facility] 2019-10-26 2019-10-26 Appointmen GABBY MOORE UTP UTP [id number] Univers 10:30:00 10:30:00 t; Praful MOORE M.D. [facility] 2019-10-20 2019-10-20 [facility] [id number] [facility] 05:28:00 05:28:00 2019-09-21 2019-09-21 AppointPOLLO Chadwick UTP UTP [id number] Univers 10:00:00 10:00:00 t; Praful PANDA ity ana ABAD M.D. [facility] 2019-07-30 2019-07-30 AppointPOLLO Chadwick UTP [place]tor[place] [id number] Univers 11:00:00 11:00:00 t; Praful PANDA yngology - i ty of [place] ABAD [facility] 2019-07-30 2019-07-30 Appointmen GABBY MOORE UTP [place] 5 [id number] Univers 10:30:00 10:30:00 t; Praful MOOREngology - ity ana PIERRE M.D. [facility] ans 2019-07-14 2019-07-14 Outpatient [facility] [id number] [facility] 13:10:00 13:10:00 2019-06-22 2019-06-22 Appointmen GABBY MOORE UTP [facility] 5 [id number] Univers 10:00:00 10:00:00 t; Praful MOOREngology - itAyden M.D. [facility] 2019-06-12 2019-06-12 [facility] [id number] 00:00:00 00:00:00 Rayo Sonu Keo 350.1.13.10 [place] 4.2.7.2.686 [facility] [id number] nal 092 [facility] 2019-05-21 2019-05-21 Appointmen GABBY MOORE UTP [place]tor[place] 5 [id number] Univers 10:00:00 10:00:00 t; Praful MOOREology - itAyden M.D. [facility] 2019-05-05 2019-05-05 Outpatient [facility] [id number] [facility] 10:35:00 10:35:00 2019-04-30 2019-04-30 Appointmen POLLO PANDA UTP [facility] [id number] Univers 11:00:00 11:00:00 t; Praful PANDAology - i ty ana ABAD M.D. [facility] ans 2019-04-30 2019-04-30 Appointmen GABBY MOORE UTP [place]tor[place] 5 [id number] Univers 10:15:00 10:15:00 t; Praful MOOREology - itAyden M.D. [facility] ans 2019-03-23 2019-03-23 AppointPOLLO Chadwick UTP [facility]tor[place] [id number] Univers 13:15:00 13:15:00 t; Praful PANDAngology - i ty ana ABAD M.D. [facility] ans 2019-02-26 2019-02-26 Appointmen GABBY MOORE UTP UTP [id number] Univers 08:00:00 08:00:00 t; Praful MOORE itAyden M.D. [facility] 2018-12-08 2018-12-08 Appointmen GABBY MOORE UTP [place]tor[place] 5 [id number] Univers 14:15:00 14:15:00 t; Praful MOOREngology - itAyden M.D. [facility] Physici [facility] 2018-11-06 2018-11-06 Appointmen GABBY MOORE UTP [place]tor[place] 5 [id number] Univers 13:00:00 13:00:00 t; Praful MOOREngology - itAyden M.D. [facility] Physici [facility] 2018-11-06 2018-11-06 Appointmen POLLO PANDA UTP [facility] [id number] Univers 12:45:00 12:45:00 t; Praful PANDA yngology - i ty ana ABAD M.D. [facility] 2018-10-09 2018-10-09 Appointmen GABBY MOORE UTP [place]tor[place]olar 4 [id number] Univers 15:00:00 15:00:00 t; Praful MOOREngology - Lluvia M.D. [facility] 2018-10-09 2018-10-09 Appointmen POLLO PANDA UTP [facility]tor[place]olar [id number] Univers 14:30:00 14:30:00 t; Praful PANDA yngology - i ty ana ABAD M.D. [facility] 2018-10-09 2018-10-09 Appointmen ROXY GABRIEL Neurology [id number] Univers 12:30:00 12:30:00 t; Joao ARMIJO M.D. [place] Yeison ARMIJO i, M.D. [facility] 2018-07-07 2018-07-07 Appointmen ROXY BRASHER [facility] [id number] Univers 11:00:00 11:00:00 t; FRANCISCO BRASHER M.D. cic and ity of FRANCISCO [facility] - Physic i Dr. Francisco Brasher Results Test Test Test Results Result Source Description Time Comments Comments PET CT 2020-11 EXAM: NM PET CT Skull Base University of Head/Neck CA -17 to Mid ThighDATE: 12/07/2020 [place] initial staging 07:55:0 8:27 CDTINDICATION: Physicians [id number] I70-Qusmbd of the Parotid Gland - O04-Lqjbeb of the Parotid Gland,staging.COMPARISON: PET/CT on 10/20/2018TECHNIQUE:After [...] distant metastases.--This report was dictated by a Assistant/Fellow/Physician Demurrage Worker. Ihave personallyreviewed the images as well as the interpretation and agree with the findings.Read by: Hi Galvez MD Resident/Fellow/PhysicianAss istant: Hi Galvez MDDictated Date/time: 12/07/20 10:56Electronically Signed by: Cat Reyes MD 12/09/2107:47FINAL REPORT CT Neck/Chest w 2020-03 Radiation Dose CTDIVOL = 0 University of contrast 82530 -27 (mGy): DLP = 913.82 [place] 13:04:0 (mGy-cm)PROCEDURE Physici ans 0 INFORMATION:Exam: CT Neck With ContrastExam date and time: 04/18/2020 1:23 PMAge: 69 years oldClinical indication: Malignant neoplasm of parotid gland; Additional info: /[id number] neoplasm of parotid glandTECHNIQUE:Imaging protocol: Computed tomography [...] Malignant neoplasm of parotid gland; Additional info: /[id number] neoplasm of parotid glandTECHNIQUE:Imaging protocol: Computed tomography [...] nonobstructive leftnephrolithiasis.Freddy Glasgow MD On 04/19/2020 10:46:55; [id number] by: Freddy Glasgow MDDictated Date/time: 04/19/20 10:47Electronically Signed by: Freddy Glasgow MD 04/19/2010:47FINAL REPORT CT Neck soft 2019-08 Radiation Dose CTDIVOL = 0 University of tissue w -23 (mGy): DLP = 713.06 [place] contrast 54807 08:33:0 (mGy-cm)PROCEDURE Phy sicians 0 INFORMATION:Exam: CT Neck With ContrastExam date and time: 09/14/2019 9:13 AMAge: 69 years oldClinical indication: Malignant neoplasm of parotid gland; Additional info: /[id number] neoplasm of parotid glandTECHNIQUE:Imaging protocol: Computed tomography images of the neck with intravenouscontrast.Total DLP: 713.06 mGy-cmRadiation optimization: All CT scans at this facility use at least one of thesedose optimization techniques: automated exposure control; mA and/or kVadjustment per patient size (includes targeted exams where dose is matched toclinical indication); or iterative reconstruction.Contrast material: [id number]; Contrast volume: 75 ml; Contrast route: IV; [...] follow-up recommended.Anika Brandon MD On 09/14/2019 12:54:23; [id number] by: Anika HirschapDictated Date/time: 09/14/19 12:54Electronically Signed by: Anika Hirsch 09/14/1912:54FINAL REPORT CT Chest w 2019-08 Radiation Dose CTDIVOL = 0 University of contrast 71935 -23 (mGy): DLP = 713.06 [place] [...] matched toclinical indication); or iterative reconstruction.Contrast material: [id number]; Contrast volume: 75 ml; Contrast route: IV; [...] le exam.Des Kaur MD On 09/15/2019 14:58:29; [id number] by: Des Kaur MDDictated Date/time: 09/15/19 14:58Electronically Signed by: Des Kaur MD 09/15/1914:58FINAL REPORT CT Neck soft 2019-04 EXAM: CT NECK WITH Univ ersity of tissue w -08 CONTRASTDATE: 04/30/2019 at [place] contrast 45406 08:17:0 8:41 AMINDICATION: Ph ysicians 0 68-year-old [...] tumor recurrence.--This report was dictated by a Assistant/Fellow/Physician Demurrage Worker. Ihave personallyreviewed the images as well as the interpretation and agree with the findings.Read by: Clay Donald Resident/Fellow/PhysicianAss istant: Clay Donaldictated Date/time: 04/30/19 11:21Electronically Signed by: Nisha Hayes MD 04/30/1915:25FINAL REPORT CT Chest w 2019-04 EXAM: CT CHEST WITH Univ ersity of contrast 85983 -08 CONTRASTDATE: 04/30/2019 35 [place] 07:49:0 hoursINDICATION: - C77.0 Physicians 0 Secondary [...] x 1.8 cm on the right. Back [id number], they measured 2.5 cm x 2.2 cm [...] 4.2 cm in diameter, previously, 4 cm sd3349.5. Atherosclerotic aortic disease.6. Coronary artery disease.7. Peripheral vascular disease.8. Multiple bilateral renal cysts with atrophic left kidney.9. Bilateral benign adrenal adenoma. They have mildly increased in size xcmqk6943.10. Punctate cholelithiasis without inflammation.11. Small hiatal hernia.--This report was dictated by a Assistant/Fellow/Physician Demurrage Worker. Ihave personallyreviewed the images as well as the interpretation and agree with the findings.Read by: Christopher Menendez DO Resident/Fellow/PhysicianAss istant: Christopher Menendez DODictated Date/time: 04/30/19 09:15Electronically Signed by: Jose Chavez MD 04/30/1911:35FINAL REPORT CT Abd Renal 2018-10 Study: Abd Renal Protocol [facility] w/wo -18 w/wo IV contrast CT [place] IV contrast 14:02:0 Clinical Indication: - Physicians [id number] 0 N28.89 Other specified disorders of kidney [...] adenomas.5. Cholelithiasis.6. Colonic diverticulosis without acute diverticulitis.SL: [id number] by: Des Madden MDDictated Date/time: 11/11/18 10:10Electronically Signed by: Des Madden MD 11/11/1909:21FINAL REPORT Tobacco Use Screening 2018-11-06 13:00:00 Test Item Value Reference Range Interpretation Comme nts Completed (test code = Completed) DONE [facility] CT Head/Neck [place] initial staging [address]4699 2018-10-20 07:50:00EXAM: NM PET CT Skull Base [...] adrenal adenomas.--This report was dictated by a Assistant/Fellow/Physician Demurrage Worker. Ihave personallyreviewed the images as well as the interpretation and agree with the findings.Read by: Shahid Burrell MD Resident/Fellow/PhysicianAssistant: Shahid Burrell MDDictated Date/time: 10/20/18 10:19Electronically Signed by: Shalonda Dunn MD 10/20/1915:59[facility] CT Heart, coronary art, grafts w contrast [id number] 07:59:00CORONARY CT ANGIOGRAPHY DATE PERFORMED:DATE INTERPRETED: July 03, 2018QUALITY: GoodCOMPARISON: NoneCLINICAL HISTORY:67 year-old patient with known coronary artery disease status post PCI here forevaluation of recurrent chest pain and status post pericardiocentesis.TECHNIQUE: Using a Yaw 320 MDCT scanner, a preliminary slasher study was obtained.Following intravenous administration of 80 [...] 13:47Electronically Signed by: Marko Trent MD 07/03/1813:59[facility]PORTUnUint[facility]
[2021-04-17] MEDS ORDERED: DIPHENHYDRAMINE 25 MG TAB/CAP PO PRN (16:43)
[2021-04-17] MEDS ORDERED: D50W 25 GM/50 ML SYRINGE IV PRN ×2 (16:44→16:45)
[2021-04-17] MEDS ORDERED: GLUCAGON 1 MG/VIAL IM PRN ×2 (16:44→16:45)
[2021-04-17] MEDS ORDERED: DOCUSATE NA/SENNA CONC 1 TAB PO PRN (18:18)
[2021-04-17] MEDS ORDERED: BISACODYL 10 MG RECTAL SUPP PR PRN (18:19)
[2021-04-17 19:16] LABS: Urine Appearance CLEAR (Clear); Urine Bilirubin NEGATIVE (Negative); Urine Blood NEGATIVE (Negative); Urine Color YELLOW (Yellow); Urine Glucose 3+ (Negative); Urine Protein NEGATIVE (Negative); Urine pH 5.5 (5.0-7.0)
[2021-04-17 20:21] LABS: Urine Bacteria <20 /HPF (NONE SEEN); Urine RBC <5 /HPF (NONE SEEN)
[2021-04-17] MEDS: INSULIN -REGULAR HUMAN 50 UNIT/0.5 ML ML SQ SCH (20:50)
[2021-04-17] MEDS: APIXABAN 2.5 MG TABLET PO SCH (20:50)
[2021-04-18] MEDS: METOPROLOL XL 25 MG TAB PO SCH (05:08)
[2021-04-18 06:23] LABS: Absolute Lymphocytes (CBC) 0.9 K/uL (0.7-4.9); Basophils % 0.3 % (0-1.3); Hematocrit 25.6 % (39.6-49.0); Lymphocytes % 13.8 % (15.3-44.8); MPV 6.6 fL (7.6-11.3); RBC Red Blood Cell Count 2.87 M/uL (4.33-5.43)
[2021-04-18] MEDS: LEVOTHYROXINE SOD 0.088 MG TAB PO SCH (06:35)
[2021-04-18 06:46] LABS: Magnesium 2.6 mg/dL (1.8-2.4); Potassium 3.8 mmol/L (3.5-5.1); Prealbumin 11.7 mg/dL (20-40)
[2021-04-18] MEDS: INSULIN -REGULAR HUMAN 50 UNIT/0.5 ML ML SQ SCH ×4 (07:24→20:05)
[2021-04-18] MEDS: ATORVASTATIN 10 MG TAB PO SCH (08:23)
[2021-04-18] MEDS: FENOFIBRATE 160 MG TAB PO SCH (08:23)
[2021-04-18] MEDS: SERTRALINE HCL 100 MG TAB PO SCH (08:23)
[2021-04-18] MEDS: APIXABAN 2.5 MG TABLET PO SCH (08:24)
[2021-04-18] MEDS: POLYETHYL GLY 3350 17 GM/DOSE PO SCH (08:24)
[2021-04-18] MEDS: INSULIN GLARGINE 100 UNITS/ML SQ SCH (08:26)
[2021-04-18 08:43] LABS: Platelet Estimate ADEQ
[2021-04-18 08:44] LABS: Blood Morphology Comment NOT SEEN (NOT SEEN)
[2021-04-18] MEDS: TRAMADOL HCL 50 MG TAB PO PRN ×2 (13:08→19:36)
--- NOTE | 2021-04-18 13:36 | R.HP ---
HISTORY AND PHYSICAL FACILITY: [facility] ENCOUNTER DATE AND TIME: 04/18/2021 13:33 (CDT) MR#: [id number] NAME LEXY PAULSON ADDRESS: [address] [place] [address] CITY: [place] [address] [address] PHONE: DATE OF : 1950 AGE: 70 SSN# [id number] GENDER: Male MARITAL STATUS PRE-HOSPITAL LIVING SETTING 01 - Home (private home/apt. board/care, assisted living, intermediate, transitional living) PRE-HOSPITAL LIVING WITH Family/Relatives ENCOUNTER PHYSICIAN: Dr. Marcelino Brock REFERRING DOCTOR: SHANNON CULVER DATE OF ADMISSION: 04/17/2021 15:51 (CDT) REFERRING FACILITY [facility] HOME TYPE AND DETAILS: # of levels in the residence: 2 ADMISSION DIAGNOSIS: CARDIOVASCULAR STRESS,AFIB,CARDIAC TAMPONADE,CHEST PAIN ONSET DATE: 04/14/2021 PRIMARY DIAGNOSIS-RELATED SURGERIES: N/A HISTORY OF PRESENT ILLNESS (HPI): Pt. is a 70 yo Right-handed male. On 04/14/2021 he was admitted to [facility] with diagnosis CARDIOVASCULAR STRESS,AFIB,CA RDIAC TAMPONADE,CHEST PAIN. His impairment category is Cardiac 09 - Cardiac Disorders (09). Pre-morbidly, Pt. was independent/mod-I in Locomotion, Transfers Control, Self-Care, Endurance, and C ommunication; and he had good Social Cognition, Balance, and Sphincter Control. Currently, he has deficits of Locomotion, Safety Awareness, Balance, Transfers Control, Sphincter Con trol, and Endurance. Pt. is now referred to [facility] for acute in-patient rehabilitation in order to maximize patient's functional independence in activities of daily living, strength, ROM, and mobi lity. Patient has realistic goal of being discharged at assistance level 7-Ind to reside at Home with Fami ly/Relatives. MEDICATION ALLERGIES: No Known Drug Allergies (NKDA) ENVIRONMENTAL ALLERGIES: - Substance Allergies None Known - Other Allergies None Known PAST MEDICAL HISTORY: BACK PAIN LYMPHOEPITHELIAL CARCINOMA AFIB ARF DM PAROTID CA GERD CVA FALLS PAST SURGICAL HISTORY: BRAIN SURGERY SOCIAL HISTORY: - Home Living Family/Relatives REVIEW OF SYSTEMS: - Gen No Chills No Fatigue No Fever - Eyes No Double Vision No itchiness - ENMT No Difficulty Swallowing - CVS No Chest Discomfort No Chest Pain No Fatigue No Weight Gain - Resp No Cough No Shortness of Breath - GI Continent No Abdominal Pain No Constipation No Diarrhea - Continent No Kidney Pain No Painful Urination No Urinary Urgency - MSK No Joint Pain No Muscle Cramps No Stiffness - Skin No Itching No Rash No Suspicious Lesions - Neuro No Coordination Difficulty No Difficulty with Concentration No Memory Loss No Seizures No Weakness - Psych No Anxiety No Depression No HIV Exposure No Persistent Infections No Seasonal Allergies - Endo No Cold/Heat Intolerance No Excessive Hunger No Excessive Thirst No Excessive Urination PHYSICAL EXAM - Gen Alert and awake Lying in bed No apparent distress Oriented to: person, time, and place - Vital Signs Temperature: 98.6 F SBP/DBP: 113/62 Pulse: 63 Resp: 16 Vital signs stable, afebrile - CVS RRR VITAL SIGNS Temperature: 98.6 F SBP/DBP: 113/62 Pulse: 63 Resp: 16 Vital signs stable, afebrile NURSING: - Shower allowing shower ACTIVITIES OOB only with supervision QI SCORES: - Self-Care A. Eating 03-Partial/moderate assistance B. Oral hygiene 03-Partial/moderate assistance C. Toileting hygiene 03-Partial/moderate assistance E. Shower/bathe self 03-Partial/moderate assistance F. Upper body dressing 03-Partial/moderate assistance G. Lower body dressing 03-Partial/moderate assistance H. Putting on/taking off footwear 88-Not attempted due to medical condition or safety concerns - Mobility A. Roll left and right 03-Partial/moderate assistance B. Sit to lying 03-Partial/moderate assistance C. Lying to sitting on side of bed 03-Partial/moderate assistance D. Sit to stand 03-Partial/moderate assistance E. Chair/pro-st-wpzdv transfer 03-Partial/moderate assistance F. Toilet transfer 03-Partial/moderate assistance G. Car transfer 88-Not attempted due to medical condition or safety concerns I. Walk 10 feet 03-Partial/moderate assistance J. Walk 50 feet with two turns 88-Not attempted due to medical condition or safety concerns K. Walk 150 feet 88-Not attempted due to medical condition or safety concerns L. Walking 10 feet on uneven surfaces 88-Not attempted due to medical condition or safety concerns M. 1 step (curb) 88-Not attempted due to medical condition or safety concerns N. 4 steps 10-Not attempted due to environmental limitations O. 12 steps 10-Not attempted due to environmental limitations P. Picking up object 88-Not attempted due to medical condition or safety concerns R. Wheel 50 feet with two turns 88-Not attempted due to medical condition or safety concerns S. Wheel 150 feet 88-Not attempted due to medical condition or safety concerns - Bladder and Bowel Bladder continence Bowel continence - Endurance Poor - Balance Poor - Safety Awareness Fair CURRENT FUNC. DEFICITS: Self-Care, Mobility, Endurance, Balance, and Safety Awareness MEDICATIONS: - Other See attached MAR (Medication Administration Record) ASSESSMENT: Pt. is a 70 yo Right-handed male.On 04/14/2021 he was admitted to [facility] with diagno sis CARDIOVASCULAR STRESS,AFIB,CARDIAC TAMPONADE,CHEST PAIN.His impairment category is Cardiac 09 - Cardiac Disorders ().Pre-morbidly, Pt. was independent/mod-I in Locomotion, Transfers Control, Self -Care, Endurance, and Communication; and he had good Social Cognition, Balance, and Sphincter Control .Currently, he has deficits of Locomotion, Safety Awareness, Balance, Transfers Control, Sphincter Co ntrol, and Endurance.Pt. is now referred to [facility] for acute in-patient re habilitation in order to maximize patient's functional independence in activities of daily living, st rength, ROM, and mobility.- Rehab Goal Patient has realistic goal of being discharged at assistance level 7-Ind to reside at Home with Fami ly/Relatives. - Physical Therapy Gait dysfunction - to improve, our physical therapists will perform initial evaluation of pt's status upon admission and devise an individualized program for Gait Training, and Wheel Chair mobility Inability to transfer - to improve, our physical therapists will perform initial evaluation of pt's s tatus upon admission and devise an individualized program for Bed mobility Need for home safety evaluation - to improve, our physical therapists will perform initial evaluation of pt's status upon admission and devise an individualized program for Home Evaluation Need in caregiver upon discharge - to improve, our physical therapists will perform initial evaluatio n of pt's status upon admission and devise an individualized program for Caregiver Training New precaution - to improve, our physical therapists will perform initial evaluation of pt's status u sam admission and devise an individualized program for Patient precaution education Poor balance - to improve, our physical therapists will perform initial evaluation of pt's status upo n admission and devise an individualized program for Balance Training Poor endurance - to improve, our physical therapists will perform initial evaluation of pt's status u sam admission and devise an individualized program for Endurance Training Weakness - to improve, our physical therapists will perform initial evaluation of pt's status upon ad mission and devise an individualized program for Aquatic Therapy, Neuromuscular Reeducation, and Stre ngthening Achieving independence - to improve, our physical therapists will perform initial evaluation of pt's status upon admission and devise an individualized program for Community Reintegration Activities - Occupational Therapy Need for career development manager - to improve, our occupation therapists will perform initial evaluation of pt's s tatus upon admission and devise an individualized program for Caregiver Training Weakness - to improve, our occupation therapists will perform initial evaluation of pt's status upon admission and devise an individualized program for Aquatic Therapy, Balance, Endurance, UE ROM, and U E strengthening MEDICAL PLAN: - Diet Type Start Regular - Diet - Liquid Texture Start Regular - Tube Feed Start N/A - Other See attached MAR (Medication Administration Record) - Diet - Solid Texture Regular - Shower shower DISCHARGE PLAN: - Estimated Length of Stay (days) 10. - Consensus on plan Discharge plan has been discussed with primary caregiver. Patient/Family is in agreement with the arti n. Primary caregiver is in agreement with the plan. - Patient/Family Goals Return home independently. - Planned Living Setting Upon Discharge Home, to live with Family/Relatives. Transitional Living. SIGNATURE PANEL: (CDT)
[2021-04-18] MEDS: MAGNESIUM CITRATE 300 ML BOT PO SCH ×2 (18:00→19:19)
[2021-04-18] MEDS: APIXABAN 5 MG TABLET PO SCH (19:36)
[2021-04-18] MEDS: GLUCERNA SHAKE 237 ML CAN PO SCH (19:36)
[2021-04-18] MEDS ORDERED: FERROUS SULFATE 325 MG TAB PO SCH (20:00)
[2021-04-18] MEDS ORDERED: DOCUSATE NA/SENNA CONC 1 TAB PO SCH (21:00)
[2021-04-18] MEDS ORDERED: MAGNESIUM HYDROXIDE 8% 30 ML PO PRN (21:46)
--- NOTE | 2021-04-18 21:50 | P.PN ---
Subjective Date of Service: 04/18/21 Chief Complaint: LEXY WAS SENT TO REHAB FROM ACUTE FLOOR. Subjective: Improving LEXY CAME IN FOR SEVERE LEG SWELLING FROM DVT BELOW THE IVC FILTER. HE ALSO HAD LARGE RETROPERITONEAL HEMATOMA FROM THE [place]. HE IS TOLERATING ELIQUIS WELL. HE IS STABLE IN REHAB. STILL HAS SIGNIFICANT BACK PAIN. Physical Examination - Vital Signs Temperature: 98.4 F Blood Pressure: 121/65 Pulse: 69 Respirations: 16 Pulse Ox (%): 95 - Physical Exam General: Oriented x3, Mild distress, Moderate distress HEENT: Atraumatic, PERRLA, EOMI Neck: Supple, JVD not distended Respiratory: Clear to auscultation bilaterally, Normal air movement Cardiovascular: Regular rate/rhythm, Normal S1 S2 Gastrointestinal: Normal bowel sounds, No tenderness Musculoskeletal: No tenderness Integumentary: No rashes Neurological: Normal speech, Normal tone, Normal affect Lymphatics: No axilla or inguinal lymphadenopathy - Studies Laboratory Data (last 24 hrs) 04/18/21 06:07: Sodium 137, Potassium 3.8, BUN 46 H D, Creatinine 1.25, Glucose 117 H, Magnesium 2.6 H 04/18/21 06:07: WBC 6.60, Hgb 8.8 L, Hct 25.6 L, Plt Count 263 D Medications List Reviewed: Yes Assessment And Plan - Current Problems (Diagnosis) (1) Dehydration Current Visit: Yes Status: Acute Plan: CLINICALL BACK TO NORMAL. IV TO SL NOW. (2) DVT of lower extremity, bilateral Current Visit: No Status: Acute Plan: UNPROVOKED DVT. HE WILL NEED TO BE ON ELIQUIS FOR LIFE TIME LONG HE TOLERATES. (3) Diabetes Current Visit: No Status: Chronic Plan: WATCH GLUCOSE. A1C IS 7.1 Qualifiers: Diabetes mellitus type: type 2 (4) Retroperitoneal hematoma Current Visit: No Status: Acute Plan: ORGANIZED WELL SO FAR.
[2021-04-19] MEDS: TRAMADOL HCL 50 MG TAB PO PRN ×2 (05:04→10:17)
[2021-04-19] MEDS: METOPROLOL XL 25 MG TAB PO SCH (05:05)
[2021-04-19] MEDS: LEVOTHYROXINE SOD 0.088 MG TAB PO SCH (06:41)
[2021-04-19 07:11] LABS: Absolute Lymphocytes (CBC) 0.5 K/uL (0.7-4.9); Basophils % 0.2 % (0-1.3); Hematocrit 25.1 % (39.6-49.0); Lymphocytes % 8.3 % (15.3-44.8); MPV 6.5 fL (7.6-11.3); RBC Red Blood Cell Count 2.82 M/uL (4.33-5.43)
[2021-04-19] MEDS: INSULIN -REGULAR HUMAN 50 UNIT/0.5 ML ML SQ SCH ×4 (07:24→19:41)
[2021-04-19 07:25] LABS: Potassium 4.1 mmol/L (3.5-5.1)
[2021-04-19] MEDS ORDERED: FE SULF/FA/VIT B COMP & C TAB PO SCH (08:00)
[2021-04-19] MEDS ORDERED: FERROUS SULFATE 325 MG TAB PO SCH (08:00)
[2021-04-19] MEDS: GLUCERNA SHAKE 237 ML CAN PO SCH ×2 (08:00→19:42)
[2021-04-19] MEDS: INSULIN GLARGINE 100 UNITS/ML SQ SCH (08:04)
[2021-04-19] MEDS: ATORVASTATIN 10 MG TAB PO SCH (08:05)
[2021-04-19] MEDS: FENOFIBRATE 160 MG TAB PO SCH (08:05)
[2021-04-19] MEDS: SERTRALINE HCL 100 MG TAB PO SCH (08:05)
[2021-04-19] MEDS: APIXABAN 5 MG TABLET PO SCH ×2 (08:05→19:41)
[2021-04-19] MEDS: POLYETHYL GLY 3350 17 GM/DOSE PO SCH (08:05)
--- NOTE | 2021-04-19 12:20 | RAD REPORT ---
EXAM DESCRIPTION: RAD - Barium Swallow Modified - 04/19/2021 12:11 pm CLINICAL HISTORY: dysphagia COMPARISON: Abdomen Pelvis Wo Contrast dated 04/13/2021 TECHNIQUE: The patient was given liquid, semi-solid and solid forms of barium. Lateral view fluorosc opic imaging was performed in conjunction with speech pathology service. FINDINGS: LARYNGEAL PENETRATION : CLEARED WITH THIN PHARYNGEAL RESIDUE : VALLECULAR MILD WITH THIN, NECTAR, HONEY, ANTHONY CRACKER, PYRIFORM TRACE OF THIN OTHER : MILD - MODERATE ESOPHAGEAL RETENTION AND STASIS WITH PUDDING AND PILL, MILD RETROPULSION OF H ONEY BARIUM FROM UES AND PHARYNX Total fluoroscopy time: 5 minutes and 35 seconds
--- NOTE | 2021-04-19 21:40 | P.PN ---
Subjective Date of Service: 04/19/21 Chief Complaint: LEXY WAS SENT TO REHAB FROM ACUTE FLOOR. Subjective: Improving LEXY CAME IN FOR SEVERE LEG SWELLING FROM DVT BELOW THE IVC FILTER. HE ALSO HAD LARGE RETROPERITONEAL HEMATOMA FROM THE [place]. HE IS TOLERATING ELIQUIS WELL. HE IS STABLE IN REHAB. STILL HAS SIGNIFICANT BACK PAIN. HE FEEL GOOD. HAS NO COMPLAINT. NO SIGNS OF GI BLEEDING. Physical Examination - Vital Signs Temperature: 97.6 F Blood Pressure: 102/56 Pulse: 60 Respirations: 18 Pulse Ox (%): 95 - Physical Exam General: Oriented x3, Mild distress HEENT: Atraumatic, PERRLA, EOMI Neck: Supple, JVD not distended Respiratory: Clear to auscultation bilaterally, Normal air movement Cardiovascular: Regular rate/rhythm, Normal S1 S2 Gastrointestinal: Normal bowel sounds, No tenderness Musculoskeletal: No tenderness Integumentary: No rashes Neurological: Normal speech, Normal tone, Normal affect Lymphatics: No axilla or inguinal lymphadenopathy - Studies Laboratory Data (last 24 hrs) 04/19/21 07:00: Sodium 136, Potassium 4.1, BUN 36 H, Creatinine 1.12, Glucose 140 H 04/19/21 07:00: WBC 6.10, Hgb 8.5 L, Hct 25.1 L, Plt Count 284 Medications List Reviewed: Yes Assessment And Plan - Current Problems (Diagnosis) (1) Dehydration Current Visit: Yes Status: Acute Plan: CLINICALL BACK TO NORMAL. IV TO SL NOW. (2) DVT of lower extremity, bilateral Current Visit: No Status: Acute Plan: UNPROVOKED DVT. HE WILL NEED TO BE ON ELIQUIS FOR LIFE TIME LONG HE TOLERATES. HG IS LOWER AT 8.5 HE IS ON GOOD DOSE OF ELIQUIS NOW. (3) Diabetes Current Visit: No Status: Chronic Plan: WATCH GLUCOSE. A1C IS 7.1 Qualifiers: Diabetes mellitus type: type 2 (4) Retroperitoneal hematoma Current Visit: No Status: Acute Plan: ORGANIZED WELL SO FAR.
[2021-04-20] MEDS: METOPROLOL XL 25 MG TAB PO SCH (05:03)
[2021-04-20 06:23] LABS: Absolute Lymphocytes (CBC) 0.5 K/uL (0.7-4.9); Basophils % 0.2 % (0-1.3); Hematocrit 25.1 % (39.6-49.0); Lymphocytes % 8.3 % (15.3-44.8); MPV 6.6 fL (7.6-11.3); RBC Red Blood Cell Count 2.81 M/uL (4.33-5.43)
[2021-04-20 06:31] LABS: Albumin 2.8 g/dL (3.4-5.0); Magnesium 2.3 mg/dL (1.8-2.4); Potassium 4.1 mmol/L (3.5-5.1); Prealbumin 11.1 mg/dL (20-40)
[2021-04-20] MEDS: LEVOTHYROXINE SOD 0.088 MG TAB PO SCH (06:45)
[2021-04-20] MEDS: INSULIN -REGULAR HUMAN 50 UNIT/0.5 ML ML SQ SCH ×5 (06:59→19:48)
[2021-04-20] MEDS: POLYETHYL GLY 3350 17 GM/DOSE PO SCH (07:58)
[2021-04-20] MEDS: INSULIN GLARGINE 100 UNITS/ML SQ SCH (07:58)
[2021-04-20] MEDS: APIXABAN 5 MG TABLET PO SCH ×2 (07:59→19:12)
[2021-04-20] MEDS: ATORVASTATIN 10 MG TAB PO SCH (07:59)
[2021-04-20] MEDS: FENOFIBRATE 160 MG TAB PO SCH (07:59)
[2021-04-20] MEDS: FERROUS SULFATE 325 MG TAB PO SCH (07:59)
[2021-04-20] MEDS: TRAMADOL HCL 50 MG TAB PO PRN (07:59)
[2021-04-20] MEDS: FE SULF/FA/VIT B COMP & C TAB PO SCH (07:59)
[2021-04-20] MEDS: SERTRALINE HCL 100 MG TAB PO SCH (07:59)
[2021-04-20] MEDS: GLUCERNA SHAKE 237 ML CAN PO SCH ×3 (08:00→19:12)
[2021-04-20 09:15] LABS: Blood Morphology Comment NOT SEEN (NOT SEEN); Platelet Estimate ADEQ
[2021-04-20] MEDS ORDERED: DIPHENHYDRAMINE 25 MG TAB/CAP PO PRN (11:50)
[2021-04-20] MEDS ORDERED: GLUCAGON 1 MG/VIAL IM PRN ×2 (11:50→12:20)
[2021-04-20] MEDS ORDERED: D50W 25 GM/50 ML SYRINGE IV PRN ×2 (11:50→12:20)
[2021-04-20] MEDS ORDERED: TRAMADOL HCL 50 MG TAB PO PRN (11:50)
[2021-04-20] MEDS ORDERED: INSULIN -REGULAR HUMAN 50 UNIT/0.5 ML ML SQ SCH (12:00)
--- NOTE | 2021-04-20 12:00 | P.PN ---
Subjective Date of Service: 04/20/21 Chief Complaint: LEXY WAS SENT TO REHAB FROM ACUTE FLOOR. LEXY CAME IN FOR SEVERE LEG SWELLING FROM DVT BELOW THE IVC FILTER. HE ALSO HAD LARGE RETROPERITONEAL HEMATOMA FROM THE [place]. HE IS TOLERATING ELIQUIS WELL. HE IS STABLE IN REHAB. STILL HAS SIGNIFICANT BACK PAIN. HE FEEL GOOD. HAS NO COMPLAINT. NO SIGNS OF GI BLEEDING. LEXY IS STABLE. HE HAD BARIUM SWALLOW DONE HE HAS DYSPHAGIA FOR YEARS. Physical Examination - Vital Signs Temperature: 97.9 F Blood Pressure: 114/62 Pulse: 60 Respirations: 18 Pulse Ox (%): 96 - Physical Exam General: Alert, In no apparent distress, Mild distress, Other (DEFORMED L SIDE OF FACE SINCE PAROTID SURGERY GIVING RISE TO FACIAL PALSY. ) HEENT: Atraumatic, PERRLA, EOMI Neck: Supple, JVD not distended Respiratory: Clear to auscultation bilaterally, Normal air movement Cardiovascular: Regular rate/rhythm, Normal S1 S2 Gastrointestinal: Normal bowel sounds, No tenderness Musculoskeletal: No tenderness Integumentary: No rashes Neurological: Normal speech, Normal tone, Normal affect Lymphatics: No axilla or inguinal lymphadenopathy - Studies Laboratory Data (last 24 hrs) 04/20/21 05:53: Sodium 140, Potassium 4.1, BUN 32 H, Creatinine 1.15, Glucose 1 20 H, Magnesium 2.3 04/20/21 05:53: WBC 6.20, Hgb 8.6 L, Hct 25.1 L, Plt Count 303 Microbiology Data (last 24 hrs): 04/17/21 18:10 Clean Catch Urine [place] Count - Final No growth. 04/17/21 18:10 Clean Catch Urine - Final No growth. Medications List Reviewed: Yes Assessment And Plan - Current Problems (Diagnosis) (1) Dehydration Current Visit: Yes Status: Acute Plan: CLINICALL BACK TO NORMAL. IV TO SL NOW. NORMAL NOW. (2) DVT of lower extremity, bilateral Current Visit: No Status: Acute Plan: UNPROVOKED DVT. HE WILL NEED TO BE ON ELIQUIS FOR LIFE TIME LONG HE TOLERATES. HG IS LOWER AT 8.5 HE IS ON GOOD DOSE OF ELIQUIS NOW. (3) Diabetes Current Visit: No Status: Chronic Plan: WATCH GLUCOSE. A1C IS 7.1 Qualifiers: Diabetes mellitus type: type 2 (4) Retroperitoneal hematoma Current Visit: No Status: Acute Plan: ORGANIZED WELL SO FAR.
[2021-04-20] MEDS: GABAPENTIN 300 MG CAP PO SCH ×2 (14:32→19:12)
[2021-04-20] MEDS: LIDOCAINE 4% PATCH TOP SCH (14:33)
--- NOTE | 2021-04-20 18:12 | PAPE ---
POST ADMISSION PHYSICIAN EVALUATION PATIENT: [facility] MR# [id number] REFERRING DOCTOR SHANNON CULVER EVALUATION DATE AND TIME 04/20/2021 18:09 (CDT) NAME LEXY PAULSON DATE OF 1950 AGE 70 PHONE SSN# [id number] GENDER male EVALUATING PHYSICIAN Dr. Jaya Addison M.D. ADMISSION DIAGNOSIS: CARDIOVASCULAR STRESS,AFIB,CARDIAC TAMPONADE,CHEST PAIN ONSET DATE 04/14/2021 POST-ADMISSION FUNCTIONAL/MEDICAL STATUS: - Bladder Same accident frequency: 7-Ind - No accidents in the past 7 days - Bowel Same accident frequency: 7-Ind - No accidents in the past 7 days - Walking Same score based on distance walked: 0(N/A) Same score based on distance walked: 1(<=50ft) - Wheelchair Same score based on distance traveled: 0(N/A) STATUS CHANGE EVALUATION: No change in Functional or Medical Status is identified compared with Pre-Admission screening. PATIENT NEEDS CLOSE MEDICAL SUPERVISION BY A REHABILITATION PHYSICIAN FOR: Coordination of Treatment Team Post-Op Complications PATIENT REQUIRES 24X7 REHAB NURSING FOR MEDICAL AND FUNCTIONAL MGT. OF THE FOLLOWING DEFICITS: Disease Management Medication Management Patient/Family Education Providing Safe Environment PATIENT REQUIRES INTENSIVE, COORDINATED INTERDISCIPLINARY APPROACH TO REHAB: Arranging Home Equipment/Services Discharge Planning Family Intervention/Training Restaurant Team Member/Case Management LIST OF IDENTIFIED AND POTENTIAL PROBLEMS: Alteration in leisure activities Bladder, Incontinence Bowel, Incontinence Infection, Actual or Potential Mobility Impaired Pain, Alteration in Comfort Self Care Deficit Skin Integrity, Actual or Potential Urinary Tract Infection (UTI), Actual or Potential RISK FOR COMPLICATIONS - N/A CARDIOVASCULAR STRESS TEST ABNORMAL. DVT OF LOWER EXTREMITY, BILATERAL. RETROPERITOMEAL. PAROTID LYMP HOEPITHELIAL CARCINOMA. A-FIB. CARDIAC TAMPONADE. ACUTE RENAL FAILURE. DIABETES. NONTRAUMATIC RETROPE RITONEAL HEMATOMA. CHEST PAIN. PATIENT COULD BE AT RISK FOR COMPLICATIONS FROM ADVERSE MEDICAL CONDITIONS DUE TO HIS/HER COMORBIDITI ES AND THE RIGORS OF THE INTENSIVE REHABILLITATION PROGRAM. METHODS OR INTERVENTIONS TO AVOID COMPLIC ATIONS INCLUDE: - Infection Clinical staff to assess and manage the signs and symptoms of infection including fever, redness, war mth, etc. - Urinary Tract Infection - Falls Patient will be evaluated for Fall Precautions and will be placed on Fall Precautions as indicated pe r protocol. - Skin Breakdown Nursing will assess skin daily using assessment tool and will place on Skin Breakdown Precautions as indicated per protocol. - Pain Clinical staff may employ non-medication methods such as massage, distraction, decrease stimulus, etc . as needed. Clinical staff will assess patient's pain level every shift per protocol to assess and e nsure pain management effectiveness. Medications will be given and the pain level re-assessed. PRELIMINARY PLAN OF CARE: - Physical Therapy Patient needs Physical Therapy for a daily minimum of 1.5 hours at least 5 out of 7 days, to improve: Mobility, Strengthening, Transfers, Stretching, ROM, Endurance, Ability to manage stairs, Gait, and Balance. - Speech Therapy Patient needs Speech Therapy for a daily minimum of 0.5 hours at least 5 out of 7 days, to improve: S wallowing, Cognition, Language Skills, and Compensatory Strategies. - Rehabilitation Nursing Patient requires 24x7 Rehabilitation Nursing for: Pain Issues, Identifying and preventing risk factor s, Monitoring and reporting current medical conditions, Assisting with ambulation and transfer, John ting with all ADL-s, Teaching patients about disease process and medications, Family teaching, Provid ing safe environment, Bowel and Bladder Issues, Skin Integrity, and Medication Management. Patient needs Restaurant Team Member and/or Case Management for: Discharge Planning, Arranging Home Equipmen t or Services, and Family Interventions. - Dietary and Nutrition Services Patient needs Dietary and Nutrition Services for: Adequate Nutrition, Nutritional Supplements, and Nu tritional Education. - Occupational Therapy Patient needs Occupational Therapy for a daily minimum of 1.5 hours at least 5 out of 7 days, to impr ove Activities of Daily Living, including: Eating, Grooming, Bathing, Dressing, Toileting, Toilet Tra nsfers, Community Reintegration, Higher functional activities, Adaptive Equipment, Splinting, Househo ld Tasks, and Other activities as determined. QI SCORES: - Self-Care A. Eating 03-Partial/moderate assistance B. Oral hygiene 03-Partial/moderate assistance C. Toileting hygiene 03-Partial/moderate assistance E. Shower/bathe self 03-Partial/moderate assistance F. Upper body dressing 03-Partial/moderate assistance G. Lower body dressing 03-Partial/moderate assistance H. Putting on/taking off footwear 88-Not attempted due to medical condition or safety concerns - Mobility A. Roll left and right 03-Partial/moderate assistance B. Sit to lying 03-Partial/moderate assistance C. Lying to sitting on side of bed 03-Partial/moderate assistance D. Sit to stand 03-Partial/moderate assistance E. Chair/phn-um-stcgk transfer 03-Partial/moderate assistance F. Toilet transfer 03-Partial/moderate assistance G. Car transfer 88-Not attempted due to medical condition or safety concerns I. Walk 10 feet 03-Partial/moderate assistance J. Walk 50 feet with two turns 88-Not attempted due to medical condition or safety concerns K. Walk 150 feet 88-Not attempted due to medical condition or safety concerns L. Walking 10 feet on uneven surfaces 88-Not attempted due to medical condition or safety concerns M. 1 step (curb) 88-Not attempted due to medical condition or safety concerns N. 4 steps 10-Not attempted due to environmental limitations O. 12 steps 10-Not attempted due to environmental limitations P. Picking up object 88-Not attempted due to medical condition or safety concerns R. Wheel 50 feet with two turns 88-Not attempted due to medical condition or safety concerns S. Wheel 150 feet 88-Not attempted due to medical condition or safety concerns - Bladder and Bowel Bladder continence Bowel continence - Endurance Poor - Balance Poor - Safety Awareness Fair POTENTIAL FUNCTIONAL GOALS FOR PATIENT TO ACHIEVE BY DISCHARGE: - Safety Precaution Patient will remain free from falls or injury at time of discharge. - Bed Mobility Patient will perform bed mobility at 4-Juan Luis level of assistance. - Transfers Patient will complete transfers from bed to chair at 4-Juan Luis level of assistance. - Mobility Patient will ambulate 150 ft with 4-Juan Luis level of assistance with RW. PATIENT REHAB POTENTIAL EmileLeticia KAYLIEJALEESA is able and expected to receive 3 hours of individualized therapy daily on at least 5 of e very 7 days Carlin PAULSON's prognosis for significant practical improvement within a reasonable period of time appea rs Good Expected level of measurable improvement will be of a practical value to Carlin PAULSON's functional capa city or adaptations to impairments Has a viable Discharge Plan Medically appropriate; condition is sufficiently stable to participate in intensive rehab program DISCHARGE PLAN: - Estimated Length of Stay (days) 10. - Consensus on plan Discharge plan has been discussed with primary caregiver. Patient/Family is in agreement with the arti n. Primary caregiver is in agreement with the plan. - Patient/Family Goals Return home independently. - Planned Living Setting Upon Discharge Home, to live with Family/Relatives. Transitional Living. CONCLUSION ON REHABILITATION NECESSITY: I have evaluated patient's pre-admission functional status and, comparing it to the patient's post-ad mission functional status now, I conclude that the pre-admission assessment was accurate. Patient's c ondition on admission supports the medical necessity of admission to IRF. It is safe to proceed with patient's therapy program. SIGNATURE PANEL: (CDT)
--- NOTE | 2021-04-20 18:20 | R.PN ---
PROGRESS NOTES ENCOUNTER DATE AND TIME: 04/20/2021 18:11 (CDT) NAME LEXY PAULSON DATE OF : 1950 DATE OF ADMISSION: 04/17/2021 15:51 (CDT) CARDIOVASCULAR STRESS,AFIB,CARDIAC TAMPONADE,CHEST PAINCHIEF COMPLAINT: Cardiac debility SUBJECTIVE: Pt denied any depression. Pt denied any Shortness of Breath. VITAL SIGNS Temperature: 97.9 F SBP/DBP: 114/62 Pulse: 60 Resp: 14 MEDICATION ALLERGIES: No Known Drug Allergies (NKDA) ENVIRONMENTAL ALLERGIES: - Substance Allergies None Known - Other Allergies None Known NURSING: - Shower allowing shower ACTIVITIES OOB only with supervision THERAPIES: - Dietary and Nutrition Adequate Nutrition. Nutritional Education. Nutritional Supplements. PHYSICAL EXAM - Gen Alert and awake Lying in bed No apparent distress Oriented to: person, time, and place - Skin No skin breakdown. No abnormalities - Eyes No abnormalities - ENMT No abnormalities - Neck Chronic left neck surgery. - CVS RRR - Chest No abnormalities - Resp Clear to auscultation - Abd Soft - GI Non distended Deferred - No abnormalities - Ext Mild bilateral lower extremity edema. - MSK 4+/5 weakness in both lower extremities. - Neuro No focal deficits - Psych No abnormalities ASSESSMENT: Pt. is a 70 yo Right-handed male.On 04/14/2021 he was admitted to [facility] with diagno sis CARDIOVASCULAR STRESS,AFIB,CARDIAC TAMPONADE,CHEST PAIN.His impairment category is Cardiac 09 - Cardiac Disorders (09).Pre-morbidly, Pt. was independent/mod-I in Locomotion, Transfers Control, Self -Care, Endurance, and Communication; and he had good Social Cognition, Balance, and Sphincter Control .Currently, he has deficits of Locomotion, Safety Awareness, Balance, Transfers Control, Sphincter Co ntrol, and Endurance.Pt. is now referred to [facility] for acute in-patient re habilitation in order to maximize patient's functional independence in activities of daily living, st rength, ROM, and mobility.- Rehab Goal Patient has realistic goal of being discharged at assistance level 7-Ind to reside at Home with Fami ly/Relatives. MDM/PLAN: - Physical Therapy Gait dysfunction - to improve, our physical therapists will perform initial evaluation of pt's statu s upon admission and devise an individualized program for Gait Training, and Wheel Chair mobility Inability to transfer - to improve, our physical therapists will perform initial evaluation of pt's status upon admission and devise an individualized program for Bed mobility Need for home safety evaluation - to improve, our physical therapists will perform initial evaluatio n of pt's status upon admission and devise an individualized program for Home Evaluation Need in caregiver upon discharge - to improve, our physical therapists will perform initial evaluati on of pt's status upon admission and devise an individualized program for Caregiver Training New precaution - to improve, our physical therapists will perform initial evaluation of pt's status upon admission and devise an individualized program for Patient precaution education Poor balance - to improve, our physical therapists will perform initial evaluation of pt's status up on admission and devise an individualized program for Balance Training Poor endurance - to improve, our physical therapists will perform initial evaluation of pt's status upon admission and devise an individualized program for Endurance Training Weakness - to improve, our physical therapists will perform initial evaluation of pt's status upon a dmission and devise an individualized program for Aquatic Therapy, Neuromuscular Reeducation, and Str engthening Achieving independence - to improve, our physical therapists will perform initial evaluation of pt's status upon admission and devise an individualized program for Community Reintegration Activities - Occupational Therapy Need for care center manager - to improve, our occupation therapists will perform initial evaluation of pt's status upon admission and devise an individualized program for Caregiver Training Weakness - to improve, our occupation therapists will perform initial evaluation of pt's status upon admission and devise an individualized program for Aquatic Therapy, Balance, Endurance, UE ROM, and UE strengthening - Other See attached MAR (Medication Administration Record) - Diet Type Continue Regular - Diet - Liquid Texture Continue Regular - Tube Feed Continue N/A - Diet - Solid Texture Continue Regular - Shower allowing shower FUNCTIONAL STATUS: UPDATED AT WEEKLY TEAM CONFERENCE - Bladder Same accident frequency: 7-Ind - No accidents in the past 7 days - Bowel Same accident frequency: 7-Ind - No accidents in the past 7 days - Walking Same score based on distance walked: 0(N/A) Same score based on distance walked: 1(<=50ft) - Wheelchair Same score based on distance traveled: 0(N/A) FUNCTIONAL STATUS: - Self-Care A. Eating Juan Luis B. Grooming sup C. Bathing modA D. Dressing - Upper Juan Luis E. Dressing - Lower modA F. Toileting Juan Luis - Sphincter Control G. Bladder control sup H. Bowel control sup - Transfers Control I. Bed/Chair/Wheelchair modA J. Toilet modA K. Tub/Shower modA - Locomotion L. Walk/Wheelchair (B) sup M. Stairs Juan Luis - Communication N. Comprehension (B) Jermaine O. Expression (B) Jermaine - Social Cognition P. Social Interaction Jermaine Q. Problem Solving Jermaine R. Memory Jermaine - Endurance Fair - Balance Fair - Safety Awareness Good QI SCORES: - Self-Care A. Eating 03-Partial/moderate assistance B. Oral hygiene 03-Partial/moderate assistance C. Toileting hygiene 03-Partial/moderate assistance E. Shower/bathe self 03-Partial/moderate assistance F. Upper body dressing 03-Partial/moderate assistance G. Lower body dressing 03-Partial/moderate assistance H. Putting on/taking off footwear 88-Not attempted due to medical condition or safety concerns - Mobility A. Roll left and right 03-Partial/moderate assistance B. Sit to lying 03-Partial/moderate assistance C. Lying to sitting on side of bed 03-Partial/moderate assistance D. Sit to stand 03-Partial/moderate assistance E. Chair/qew-ac-cwytr transfer 03-Partial/moderate assistance F. Toilet transfer 03-Partial/moderate assistance G. Car transfer 88-Not attempted due to medical condition or safety concerns I. Walk 10 feet 03-Partial/moderate assistance J. Walk 50 feet with two turns 88-Not attempted due to medical condition or safety concerns K. Walk 150 feet 88-Not attempted due to medical condition or safety concerns L. Walking 10 feet on uneven surfaces 88-Not attempted due to medical condition or safety concerns M. 1 step (curb) 88-Not attempted due to medical condition or safety concerns N. 4 steps 10-Not attempted due to environmental limitations O. 12 steps 10-Not attempted due to environmental limitations P. Picking up object 88-Not attempted due to medical condition or safety concerns R. Wheel 50 feet with two turns 88-Not attempted due to medical condition or safety concerns S. Wheel 150 feet 88-Not attempted due to medical condition or safety concerns - Bladder and Bowel Bladder continence Bowel continence - Endurance Poor - Balance Poor - Safety Awareness Fair CURRENT FUNC. DEFICITS: Self-Care, Mobility, Endurance, Balance, and Safety Awareness SIGNATURE PANEL: (CDT)
[2021-04-21] MEDS: METOPROLOL XL 25 MG TAB PO SCH (05:23)
[2021-04-21] MEDS ORDERED: LEVOTHYROXINE SOD 0.088 MG TAB PO SCH (06:00)
[2021-04-21 06:37] LABS: Absolute Lymphocytes (CBC) 0.7 K/uL (0.7-4.9); Basophils % 0.5 % (0-1.3); Hematocrit 26.3 % (39.6-49.0); Lymphocytes % 10.2 % (15.3-44.8); MPV 6.4 fL (7.6-11.3); RBC Red Blood Cell Count 2.92 M/uL (4.33-5.43)
[2021-04-21] MEDS: LEVOTHYROXINE SOD 0.088 MG TAB PO SCH (06:45)
[2021-04-21 07:26] LABS: Potassium 4.1 mmol/L (3.5-5.1)
[2021-04-21] MEDS: INSULIN -REGULAR HUMAN 50 UNIT/0.5 ML ML SQ SCH ×4 (07:29→20:02)
[2021-04-21] MEDS ORDERED: METOPROLOL XL 25 MG TAB PO SCH (08:00)
[2021-04-21] MEDS ORDERED: SERTRALINE HCL 50 MG TAB PO SCH (08:00)
[2021-04-21] MEDS: GLUCERNA SHAKE 237 ML CAN PO SCH ×2 (08:00→19:43)
[2021-04-21] MEDS ORDERED: ATORVASTATIN 10 MG TAB PO SCH (08:00)
[2021-04-21] MEDS: ATORVASTATIN 10 MG TAB PO SCH (08:03)
[2021-04-21] MEDS: FE SULF/FA/VIT B COMP & C TAB PO SCH (08:04)
[2021-04-21] MEDS: APIXABAN 5 MG TABLET PO SCH ×2 (08:04→19:43)
[2021-04-21] MEDS: FENOFIBRATE 160 MG TAB PO SCH (08:04)
[2021-04-21] MEDS: FERROUS SULFATE 325 MG TAB PO SCH (08:04)
[2021-04-21] MEDS: SERTRALINE HCL 100 MG TAB PO SCH (08:06)
[2021-04-21] MEDS: GABAPENTIN 300 MG CAP PO SCH ×2 (08:06→19:43)
[2021-04-21] MEDS: INSULIN GLARGINE 100 UNITS/ML SQ SCH (08:06)
[2021-04-21] MEDS: MEGESTROL 400 MG/10 ML UCUP PO SCH (08:06)
[2021-04-21] MEDS: POLYETHYL GLY 3350 17 GM/DOSE PO SCH (08:08)
[2021-04-21] MEDS: LIDOCAINE 4% PATCH TOP SCH (08:08)
[2021-04-21] MEDS: TRAMADOL HCL 50 MG TAB PO PRN ×2 (08:10→12:38)
--- NOTE | 2021-04-21 09:57 | P.RH.PN ---
Estimated Length of Stay: 11 Expected Discharge Date: 04/27/21 Discharge Disposition Plan: Home Family Support: Yes Half-Way Goal: Mobility, Transfers, Self Care Vital Signs: Last Vital Signs Temp 97.8 F 04/21/21 07:05 Pulse 65 04/21/21 07:05 Resp 18 04/21/21 07:05 BP 124/63 04/21/21 07:05 Pulse Ox 98 04/21/21 07:05 Laboratory: Laboratory Last Values WBC 7.20 K/uL (4.3-10.9) D 04/21/21 06:04 RBC 2.92 M/uL (4.33-5.43) L 04/21/21 06:04 Hgb 8.9 g/dL (13.6-17.9) L 04/21/21 06:04 Hct 26.3 % (39.6-49.0) L 04/21/21 06:04 MCV 90.0 fL (80-100) 04/21/21 06:04 MCH 30.4 pg (27.0-35.0) 04/21/21 06:04 MCHC 33.8 g/dL (32.0-36.0) 04/21/21 06:04 RDW 14.4 % (12.1-15.2) 04/21/21 06:04 Plt Count 343 K/uL (152-406) 04/21/21 06:04 MPV 6.4 fL (7.6-11.3) L 04/21/21 06:04 Neutrophils % 75.5 % (41.7-73.7) H 04/21/21 06:04 Lymphocytes % 10.2 % (15.3-44.8) L 04/21/21 06:04 Monocytes % 11.3 % (3.3-12.3) 04/21/21 06:04 Eosinophils % 2.5 % (0-4.4) 04/21/21 06:04 Basophils % 0.5 % (0-1.3) 04/21/21 06:04 Absolute Neutrophils 5.4 K/uL (1.8-8.0) 04/21/21 06:04 Segmented Neutrophils 73 % (40-80) 04/20/21 05:53 Band Neutrophils 6 % (0-1) H 04/20/21 05:53 Absolute Lymphocytes 0.7 K/uL (0.7-4.9) 04/21/21 06:04 Lymphocytes 9 % (15-42) L 04/20/21 05:53 Monocytes 10 % (0-10) 04/20/21 05:53 Absolute Monocytes 0.8 K/uL (0.1-1.3) 04/21/21 06:04 Eosinophils 2 % (0-3) 04/20/21 05:53 Absolute Eosinophils 0.2 K/uL (0-0.5) 04/21/21 06:04 Absolute Basophils 0.0 K/uL (0-0.5) 04/21/21 06:04 Platelet Estimate Adeq 04/20/21 05:53 Morphology Comment Not seen (NOT SEEN) 04/20/21 05:53 Sodium 138 mmol/L (136-145) 04/21/21 06:04 Potassium 4.1 mmol/L (3.5-5.1) 04/21/21 06:04 Chloride 105 mmol/L (98-107) 04/21/21 06:04 Carbon Dioxide 29 mmol/L (21-32) 04/21/21 06:04 BUN 30 mg/dL (7-18) H 04/21/21 06:04 Creatinine 1.18 mg/dL (0.55-1.3) 04/21/21 06:04 Estimated GFR 61 mL/min (=/>90) L 04/21/21 06:04 Glucose 144 mg/dL (74-106) H 04/21/21 06:04 POC Glucose 212 mg/dL (65-120) H 04/20/21 18:55 Calcium 8.9 mg/dL (8.5-10.1) 04/21/21 06:04 Magnesium 2.3 mg/dL (1.8-2.4) 04/20/21 05:53 Albumin 2.8 g/dL (3.4-5.0) L 04/20/21 05:53 Prealbumin 11.1 mg/dL (20-40) L 04/20/21 05:53 Urine Color Yellow (Yellow) 04/17/21 18:10 Urine Appearance Clear (Clear) 04/17/21 18:10 Urine pH 5.5 (5.0-7.0) 04/17/21 18:10 Ur Specific [place] 1.020 (1.005-1.030) 04/17/21 18:10 Glucose (UA)(Auto) 3+ (Negative) H 04/17/21 18:10 Urine Ketones Negative (Negative) 04/17/21 18:10 Urine Blood Negative (Negative) 04/17/21 18:10 Urine Nitrite Negative (Negative) 04/17/21 18:10 Urine Bilirubin Negative (Negative) 04/17/21 18:10 Urine Urobilinogen 1.0 mg/dL (0.2-1.0) 04/17/21 18:10 Ur Leukocyte Esterase Negative (Negative) 04/17/21 18:10 Urine RBC <5 /HPF (NONE SEEN) 04/17/21 18:10 Urine WBC <5 /HPF (<5) 04/17/21 18:10 Ur Squamous Epith Cells <5 /HPF (NONE SEEN) 04/17/21 18:10 Urine Bacteria <20 /HPF (NONE SEEN) 04/17/21 18:10 Urine Culture Reflexed Not needed 04/17/21 18:10 Urine Total Protein Negative (Negative) 04/17/21 18:10 Weight: 207 lb Wound Present: No Closed Surgical Incision Present: No Negative Pressure Wound Therapy Present: No Physician Update: Labs reviewed and are stable. He is doing well but fatigues quickly. Walks 150', up and down stairs and transfers with contact guard assistance. Summary: Patient's care plan and truck terminal manager goals have been reviewed and revised as necessary. Please see the Rehabilitation Signature page for all necessary signatures.
--- NOTE | 2021-04-21 16:17 | P.PN ---
Subjective Date of Service: 04/21/21 Chief Complaint: LEXY WAS SENT TO REHAB FROM ACUTE FLOOR. Subjective: Improving LEXY CAME IN FOR SEVERE LEG SWELLING FROM DVT BELOW THE IVC FILTER. HE ALSO HAD LARGE RETROPERITONEAL HEMATOMA FROM THE [place]. HE IS TOLERATING ELIQUIS WELL. HE IS STABLE IN REHAB. STILL HAS SIGNIFICANT BACK PAIN. HE FEEL GOOD. HAS NO COMPLAINT. NO SIGNS OF GI BLEEDING. LEXY IS STABLE. HE HAD BARIUM SWALLOW DONE HE HAS DYSPHAGIA FOR YEARS. LEXY IS DOING GOOD. BACK PAIN IS BETTER. NOW HE IS ABLE TO SIT UP AND EAT. Physical Examination - Vital Signs Temperature: 97.8 F Blood Pressure: 124/63 Pulse: 65 Respirations: 18 Pulse Ox (%): 98 - Physical Exam General: Oriented x3, Mild distress, Other (FACIAL PALSY FROM PAROTID SURGERY.) HEENT: Atraumatic, PERRLA, EOMI Neck: Supple, JVD not distended Respiratory: Clear to auscultation bilaterally, Normal air movement Cardiovascular: Regular rate/rhythm, Normal S1 S2 Gastrointestinal: Normal bowel sounds, No tenderness Musculoskeletal: No tenderness Integumentary: No rashes Neurological: Normal speech, Normal tone, Normal affect Lymphatics: No axilla or inguinal lymphadenopathy - Studies Laboratory Data (last 24 hrs) 04/21/21 06:04: Sodium 138, Potassium 4.1, BUN 30 H, Creatinine 1.18, Glucose 144 H 04/21/21 06:04: WBC 7.20 D, Hgb 8.9 L, Hct 26.3 L, Plt Count 343 Medications List Reviewed: Yes Assessment And Plan - Current Problems (Diagnosis) (1) Dehydration Current Visit: Yes Status: Acute Plan: CLINICALL BACK TO NORMAL. IV TO SL NOW. NORMAL NOW. (2) DVT of lower extremity, bilateral Current Visit: No Status: Acute Plan: UNPROVOKED DVT. HE WILL NEED TO BE ON ELIQUIS FOR LIFE TIME LONG HE TOLERATES. HG IS LOWER AT 8.5 HE IS ON GOOD DOSE OF ELIQUIS NOW. HE WILL BE ON LIFETIME ANTICOAGUALTION BECAUSE OF A FIB AND UNPROVOKED DVT. (3) Diabetes Current Visit: No Status: Chronic Plan: WATCH GLUCOSE. A1C IS 7.1 Qualifiers: Diabetes mellitus type: type 2 (4) Retroperitoneal hematoma Current Visit: No Status: Acute Plan: ORGANIZED WELL SO FAR.
[2021-04-22] MEDS: METOPROLOL XL 25 MG TAB PO SCH (05:08)
[2021-04-22 05:45] VITALS: BMI 31.6
[2021-04-22] MEDS: LIDOCAINE 4% PATCH TOP SCH (06:27)
[2021-04-22] MEDS: LEVOTHYROXINE SOD 0.088 MG TAB PO SCH (06:36)
[2021-04-22] MEDS: INSULIN -REGULAR HUMAN 50 UNIT/0.5 ML ML SQ SCH ×4 (07:13→20:32)
[2021-04-22] MEDS: POLYETHYL GLY 3350 17 GM/DOSE PO SCH (08:00)
[2021-04-22] MEDS: GLUCERNA SHAKE 237 ML CAN PO SCH ×2 (08:00→20:00)
[2021-04-22] MEDS: MEGESTROL 400 MG/10 ML UCUP PO SCH (08:00)
[2021-04-22] MEDS: FE SULF/FA/VIT B COMP & C TAB PO SCH (08:54)
[2021-04-22] MEDS: FENOFIBRATE 160 MG TAB PO SCH (08:54)
[2021-04-22] MEDS: GABAPENTIN 300 MG CAP PO SCH ×2 (08:55→20:31)
[2021-04-22] MEDS: SERTRALINE HCL 100 MG TAB PO SCH (08:55)
[2021-04-22] MEDS: FERROUS SULFATE 325 MG TAB PO SCH (08:55)
[2021-04-22] MEDS: ATORVASTATIN 10 MG TAB PO SCH (08:55)
[2021-04-22] MEDS: APIXABAN 5 MG TABLET PO SCH ×2 (08:55→20:31)
[2021-04-22] MEDS: TRAMADOL HCL 50 MG TAB PO PRN (08:57)
[2021-04-22] MEDS: INSULIN GLARGINE 100 UNITS/ML SQ SCH (08:59)
[2021-04-22] MEDS ORDERED: ONDANSETRON 4 MG (ODT) TAB PO PRN (09:39)
[2021-04-22] MEDS ORDERED: ONDANSETRON 4 MG (ODT) TAB ONE (10:05)
--- NOTE | 2021-04-22 14:47 | P.PN ---
Subjective Date of Service: 04/22/21 Chief Complaint: LEXY WAS SENT TO REHAB FROM ACUTE FLOOR. Subjective: Improving LEXY CAME IN FOR SEVERE LEG SWELLING FROM DVT BELOW THE IVC FILTER. HE ALSO HAD LARGE RETROPERITONEAL HEMATOMA FROM THE [place]. HE IS TOLERATING ELIQUIS WELL. HE IS STABLE IN REHAB. STILL HAS SIGNIFICANT BACK PAIN. HE FEEL GOOD. HAS NO COMPLAINT. NO SIGNS OF GI BLEEDING. LEXY IS STABLE. HE HAD BARIUM SWALLOW DONE HE HAS DYSPHAGIA FOR YEARS. LEXY IS DOING GOOD. BACK PAIN IS BETTER. NOW HE IS ABLE TO SIT UP AND EAT. DOING PT. WALKS WITH MINIMAL ASSISTANCE. NO NEW ISSUES. Physical Examination - Vital Signs Temperature: 97 F Blood Pressure: 96/60 Pulse: 89 Respirations: 16 Pulse Ox (%): 98 - Studies Medications List Reviewed: Yes Assessment And Plan - Current Problems (Diagnosis) (1) Dehydration Current Visit: Yes Status: Acute Plan: CLINICALL BACK TO NORMAL. IV TO SL NOW. NORMAL NOW. (2) DVT of lower extremity, bilateral Current Visit: No Status: Acute Plan: UNPROVOKED DVT. HE WILL NEED TO BE ON ELIQUIS FOR LIFE TIME LONG HE TOLERATES. HG IS LOWER AT 8.5 HE IS ON GOOD DOSE OF ELIQUIS NOW. HE WILL BE ON LIFETIME ANTICOAGUALTION BECAUSE OF A FIB AND UNPROVOKED DVT. HG STABLE ON ELIQUIS. THIS IS GOOD NEWS. [facility] HE HAS A LARGE HEMATOMA, IT SEEMS TO BE ORGANIZED AND NOT BLEEDING ANY LONGER. (3) Diabetes Current Visit: No Status: Chronic Plan: WATCH GLUCOSE. A1C IS 7.1 Qualifiers: Diabetes mellitus type: type 2 (4) Retroperitoneal hematoma Current Visit: No Status: Acute Plan: ORGANIZED WELL SO FAR.
[2021-04-23] MEDS: METOPROLOL XL 25 MG TAB PO SCH (05:27)
[2021-04-23] MEDS: INSULIN -REGULAR HUMAN 50 UNIT/0.5 ML ML SQ SCH ×4 (07:30→20:54)
[2021-04-23] MEDS: LEVOTHYROXINE SOD 0.088 MG TAB PO SCH (07:52)
[2021-04-23] MEDS: GLUCERNA SHAKE 237 ML CAN PO SCH ×2 (08:00→20:00)
[2021-04-23] MEDS: POLYETHYL GLY 3350 17 GM/DOSE PO SCH (08:00)
[2021-04-23 08:11] LABS: Absolute Lymphocytes (CBC) 0.5 K/uL (0.7-4.9); Basophils % 0.2 % (0-1.3); Hematocrit 26.3 % (39.6-49.0); Lymphocytes % 8.7 % (15.3-44.8); MPV 6.4 fL (7.6-11.3); RBC Red Blood Cell Count 2.94 M/uL (4.33-5.43)
[2021-04-23 08:27] LABS: Potassium 4.5 mmol/L (3.5-5.1)
[2021-04-23] MEDS: FE SULF/FA/VIT B COMP & C TAB PO SCH (09:12)
[2021-04-23] MEDS: ATORVASTATIN 10 MG TAB PO SCH (09:12)
[2021-04-23] MEDS: FENOFIBRATE 160 MG TAB PO SCH (09:12)
[2021-04-23] MEDS: GABAPENTIN 300 MG CAP PO SCH ×2 (09:12→20:53)
[2021-04-23] MEDS: SERTRALINE HCL 100 MG TAB PO SCH (09:12)
[2021-04-23] MEDS: APIXABAN 5 MG TABLET PO SCH ×2 (09:13→20:53)
[2021-04-23] MEDS: FERROUS SULFATE 325 MG TAB PO SCH (09:13)
[2021-04-23] MEDS: LIDOCAINE 4% PATCH TOP SCH (09:14)
[2021-04-23] MEDS: INSULIN GLARGINE 100 UNITS/ML SQ SCH (09:15)
--- NOTE | 2021-04-23 11:52 | P.PN ---
Subjective Date of Service: 04/23/21 Chief Complaint: LEXY WAS SENT TO REHAB FROM ACUTE FLOOR. Subjective: Improving LEXY CAME IN FOR SEVERE LEG SWELLING FROM DVT BELOW THE IVC FILTER. HE ALSO HAD LARGE RETROPERITONEAL HEMATOMA FROM THE [place]. HE IS TOLERATING ELIQUIS WELL. HE IS STABLE IN REHAB. STILL HAS SIGNIFICANT BACK PAIN. HE FEEL GOOD. HAS NO COMPLAINT. NO SIGNS OF GI BLEEDING. LEXY IS STABLE. HE HAD BARIUM SWALLOW DONE HE HAS DYSPHAGIA FOR YEARS. LEXY IS DOING GOOD. BACK PAIN IS BETTER. NOW HE IS ABLE TO SIT UP AND EAT. DOING PT. WALKS WITH MINIMAL ASSISTANCE. NO NEW ISSUES. HE HAS NO ACUTE ISSUES. STABLE. HE IS DOING PT. Physical Examination - Vital Signs Temperature: 97.5 F Blood Pressure: 108/55 Pulse: 61 Respirations: 16 Pulse Ox (%): 98 - Physical Exam General: Oriented x3, Mild distress HEENT: Atraumatic, PERRLA, Other (FACIAL WEAKNESS.), EOMI Neck: Supple, JVD not distended Respiratory: Clear to auscultation bilaterally, Normal air movement Cardiovascular: Regular rate/rhythm, Normal S1 S2 Gastrointestinal: Normal bowel sounds, No tenderness Musculoskeletal: No tenderness Integumentary: No rashes Neurological: Normal speech, Normal tone, Normal affect Lymphatics: No axilla or inguinal lymphadenopathy - Studies Laboratory Data (last 24 hrs) 04/23/21 07:48: Sodium 139, Potassium 4.5, BUN 26 H, Creatinine 1.10, Glucose 124 H 04/23/21 07:48: WBC 5.60 D, Hgb 8.8 L, Hct 26.3 L, Plt Count 298 Medications List Reviewed: Yes Assessment And Plan - Current Problems (Diagnosis) (1) Dehydration Current Visit: Yes Status: Acute Plan: CLINICALL BACK TO NORMAL. IV TO SL NOW. NORMAL NOW. (2) DVT of lower extremity, bilateral Current Visit: No Status: Acute Plan: UNPROVOKED DVT. HE WILL NEED TO BE ON ELIQUIS FOR LIFE TIME LONG HE TOLERATES. HG IS LOWER AT 8.5 HE IS ON GOOD DOSE OF ELIQUIS NOW. HE WILL BE ON LIFETIME ANTICOAGUALTION BECAUSE OF A FIB AND UNPROVOKED DVT. HG STABLE ON ELIQUIS. THIS IS GOOD NEWS. [facility] HE HAS A LARGE HEMATOMA, IT SEEMS TO BE ORGANIZED AND NOT BLEEDING ANY LONGER. (3) Diabetes Current Visit: No Status: Chronic Plan: WATCH GLUCOSE. A1C IS 7.1 Qualifiers: Diabetes mellitus type: type 2 (4) Retroperitoneal hematoma Current Visit: No Status: Acute Plan: ORGANIZED WELL SO FAR. STABLE. NO ACUTE CHANGES.
--- NOTE | 2021-04-23 14:45 | FAST ---
[employer] FORM SHIFT START DATE/TIME: 04/23/2021 07:00 (CDT) SHIFT END DATE/TIME: 04/23/2021 19:00 (CDT) NAME LEXY PAULSON DATE OF : 1950 DATE OF ADMISSION: 04/17/2021 15:51 (CDT) PHONE: AGE: 70 N# [id number] GENDER: Male ENCOUNTER PHYSICIAN: Dr. Jaya Addison M.D. ADMISSION DIAGNOSIS: - Cardiac 09 - Cardiac Disorders (09) CARDIOVASCULAR STRESS,AFIB,CARDIAC TAMPONADE,CHEST PAIN. EATING: EATING - STEP 1: Does the patient complete the activity by him/herself with no assistance (physical, verbal/nonverbal cueing, setup/clean-up)? No. EATING - STEP 2: Does the patient need only setup/clean-up assistance from one helper? Yes. 1. [id number] ADMISSION PERFORMANCE: Setup or clean-up assistance CODE: 05 ORAL HYGIENE: ORAL HYGIENE - STEP 1: Does the patient complete the activity by him/herself with no assistance (physical, verbal/nonverbal cueing, setup/clean-up)? No. ORAL HYGIENE - STEP 2: Does the patient need only setup/clean-up assistance from one helper? Yes. 1. [id number] ADMISSION PERFORMANCE: Setup or clean-up assistance CODE: 05 TOILETING HYGIENE: TOILETING HYGIENE - STEP 1: Does the patient complete the activity by him/herself with no assistance (physical, verbal/nonverbal cueing, setup/clean-up)? No. TOILETING HYGIENE - STEP 2: Does the patient need only setup/clean-up assistance from one helper? Yes. 1. [id number] ADMISSION PERFORMANCE: Setup or clean-up assistance CODE: 05 BATHING: Not assessed/no information CODE: - DRESSING - UPPER BODY: DRESSING - UPPER BODY - STEP 1: Does the patient complete the activity by him/herself with no assistance (physical, verbal/nonverbal cueing, setup/clean-up)? No. DRESSING - UPPER BODY - STEP 2: Does the patient need only setup/clean-up assistance from one helper? Yes. 1. [id number] ADMISSION PERFORMANCE: Setup or clean-up assistance CODE: 05 DRESSING - LOWER BODY: DRESSING - LOWER BODY - STEP 1: Does the patient complete the activity by him/herself with no assistance (physical, verbal/nonverbal cueing, setup/clean-up)? No. DRESSING - LOWER BODY - STEP 2: Does the patient need only setup/clean-up assistance from one helper? Yes. 1. [id number] ADMISSION PERFORMANCE: Setup or clean-up assistance CODE: 05 PUTTING ON/TAKING OFF FOOTWEAR: FOOTWEAR - STEP 1: Does the patient complete the activity by him/herself with no assistance (physical, verbal/nonverbal cueing, setup/clean-up)? No. FOOTWEAR - STEP 2: Does the patient need only setup/clean-up assistance from one helper? Yes. 1. [id number] ADMISSION PERFORMANCE: Setup or clean-up assistance CODE: 05 ROLL LEFT AND RIGHT: ROLL LEFT AND RIGHT - STEP 1: Does the patient complete the activity by him/herself with no assistance (physical, verbal/nonverbal cueing, setup/clean-up)? Yes. 1. [id number] ADMISSION PERFORMANCE: Independent CODE: 06 SIT TO LYING: SIT TO LYING - STEP 1: Does the patient complete the activity by him/herself with no assistance (physical, verbal/nonverbal cueing, setup/clean-up)? No. SIT TO LYING - STEP 2: Does the patient need only setup/clean-up assistance from one helper? Yes. 1. [id number] ADMISSION PERFORMANCE: Setup or clean-up assistance CODE: 05 LYING TO SITTING: LYING TO SITTING ON SIDE OF BED - STEP 1: Does the patient complete the activity by him/herself with no assistance (physical, verbal/nonverbal cueing, setup/clean-up)? No. LYING TO SITTING ON SIDE OF BED - STEP 2: Does the patient need only setup/clean-up assistance from one helper? Yes. 1. [id number] ADMISSION PERFORMANCE: Setup or clean-up assistance CODE: 05 SIT TO STAND: SIT TO STAND - STEP 1: Does the patient complete the activity by him/herself with no assistance (physical, verbal/nonverbal cueing, setup/clean-up)? No. SIT TO STAND - STEP 2: Does the patient need only setup/clean-up assistance from one helper? Yes. 1. [id number] ADMISSION PERFORMANCE: Setup or clean-up assistance CODE: 05 TRANSFERS: BED, CHAIR: CHAIR/[id number] TRANSFER - STEP 1: Does the patient complete the activity by him/herself with no assistance (physical, verbal/nonverbal cueing, setup/clean-up)? No. CHAIR/[id number] TRANSFER - STEP 2: Does the patient need only setup/clean-up assistance from one helper? No. CHAIR/[id number] TRANSFER - STEP 3: Does the patient need only verbal/nonverbal cueing or touching/steadying/contact guard assistance fro m one helper? Yes. 1. [id number] ADMISSION PERFORMANCE: Supervision or touching assistance CODE: 04 TRANSFER TOILET: TOILET TRANSFER - STEP 1: Does the patient complete the activity by him/herself with no assistance (physical, verbal/nonverbal cueing, setup/clean-up)? No. TOILET TRANSFER - STEP 2: Does the patient need only setup/clean-up assistance from one helper? No. TOILET TRANSFER - STEP 3: Does the patient need only verbal/nonverbal cueing or touching/steadying/contact guard assistance fro m one helper? Yes. 1. [id number] ADMISSION PERFORMANCE: Supervision or touching assistance CODE: 04 TRANSFERS: CAR: Not assessed/no information CODE: - WALK 10 FEET: Not assessed/no information CODE: - 1 STEP (CURB): Not assessed/no information CODE: - PICKING UP OBJECT: Not assessed/no information CODE: - DOES THE PATIENT USE A WHEELCHAIR/SCOOTER? Q1. DOES THE PATIENT USE A WHEELCHAIR/SCOOTER?: Yes CODE: 1 WHEEL 50 FEET WITH TWO TURNS: WHEEL 50 FEET WITH TWO TURNS - STEP 1: Does the patient complete the activity by him/herself with no assistance (physical, verbal/nonverbal cueing, setup/clean-up)? No. WHEEL 50 FEET WITH TWO TURNS - STEP 2: Does the patient need only setup/clean-up assistance from one helper? No. WHEEL 50 FEET WITH TWO TURNS - STEP 3: Does the patient need only verbal/nonverbal cueing or touching/steadying/contact guard assistance fro m one helper? Yes. 1. [id number] ADMISSION PERFORMANCE: Supervision or touching assistance CODE: 04 INDICATE THE TYPE OF WHEELCHAIR/SCOOTER USED: RR1. INDICATE THE TYPE OF WHEELCHAIR/SCOOTER USED.: Manual CODE: 1 WHEEL 150 FEET: WHEEL 150 FEET - STEP 1: Does the patient complete the activity by him/herself with no assistance (physical, verbal/nonverbal cueing, setup/clean-up)? No. WHEEL 150 FEET - STEP 2: Does the patient need only setup/clean-up assistance from one helper? No. WHEEL 150 FEET - STEP 3: Does the patient need only verbal/nonverbal cueing or touching/steadying/contact guard assistance fro m one helper? Yes. 1. [id number] ADMISSION PERFORMANCE: Supervision or touching assistance CODE: 04 INDICATE THE TYPE OF WHEELCHAIR/SCOOTER USED: SS1. INDICATE THE TYPE OF WHEELCHAIR/SCOOTER USED.: Manual CODE: 1 BLADDER AND BOWEL: H350. BLADDER CONTINENCE (3-DAY ASSESSMENT PERIOD): Always continent (no documented incontinence) CODE: 0 H400. BOWEL CONTINENCE (3-DAY ASSESSMENT PERIOD): Always continent CODE: 0 SIGNATURE PANEL: The following modified sections: 1. [id number] Admission Performance, 1. [id number] Admission Performance, 1. [id number] Admission Performance, 1. RY3546a Admission Performance, 1. BY8244h Admission Performance, 1. [id number] Admission Performance, 1. IJ0020I Admission Performance, 1. WI2244Q Admission Performance , 1. [id number] Admission Performance, 1. [id number] Admission Performance, 1. [id number] Admission Performanc e, 1. [id number] Admission Performance, Q1. Does the patient use a wheelchair/scooter?, 1. [id number] Admis jame Performance, RR1. Indicate the type of wheelchair/scooter used., 1. [id number] Admission Performanc e, Code, 1. [id number] Admission Performance, 1. LG3805T Admission Performance, 1. [id number] Admission Per formance, SS1. Indicate the type of wheelchair/scooter used., H350. Bladder Continence (3-day assessm ent period), H400. Bowel Continence (3-day assessment period) were [electronically] signed by Parul Snyder C.N.A. on SatApr 23 2021 14:44:09 T-0500 (Central Daylight Time)
[2021-04-24] MEDS: METOPROLOL XL 25 MG TAB PO SCH (05:31)
[2021-04-24] MEDS: LEVOTHYROXINE SOD 0.088 MG TAB PO SCH (06:54)
[2021-04-24] MEDS: INSULIN -REGULAR HUMAN 50 UNIT/0.5 ML ML SQ SCH ×4 (07:30→19:44)
[2021-04-24] MEDS: POLYETHYL GLY 3350 17 GM/DOSE PO SCH (07:57)
[2021-04-24] MEDS: INSULIN GLARGINE 100 UNITS/ML SQ SCH (07:58)
[2021-04-24] MEDS: FERROUS SULFATE 325 MG TAB PO SCH (07:59)
[2021-04-24] MEDS: ATORVASTATIN 10 MG TAB PO SCH (07:59)
[2021-04-24] MEDS: FENOFIBRATE 160 MG TAB PO SCH (07:59)
[2021-04-24] MEDS: FE SULF/FA/VIT B COMP & C TAB PO SCH (07:59)
[2021-04-24] MEDS: APIXABAN 5 MG TABLET PO SCH ×2 (07:59→19:11)
[2021-04-24] MEDS: GABAPENTIN 300 MG CAP PO SCH ×2 (07:59→19:11)
[2021-04-24] MEDS: SERTRALINE HCL 100 MG TAB PO SCH (08:00)
[2021-04-24] MEDS: TRAMADOL HCL 50 MG TAB PO PRN (08:00)
[2021-04-24] MEDS: GLUCERNA SHAKE 237 ML CAN PO SCH ×2 (09:40→19:11)
[2021-04-24] MEDS: LIDOCAINE 4% PATCH TOP SCH (10:15)
--- NOTE | 2021-04-24 13:18 | P.PN ---
Subjective Date of Service: 04/24/21 Chief Complaint: LEXY WAS SENT TO REHAB FROM ACUTE FLOOR. Subjective: Improving LEXY CAME IN FOR SEVERE LEG SWELLING FROM DVT BELOW THE IVC FILTER. HE ALSO HAD LARGE RETROPERITONEAL HEMATOMA FROM THE [place]. HE IS TOLERATING ELIQUIS WELL. HE IS STABLE IN REHAB. STILL HAS SIGNIFICANT BACK PAIN. HE FEEL GOOD. HAS NO COMPLAINT. NO SIGNS OF GI BLEEDING. LEXY IS STABLE. HE HAD BARIUM SWALLOW DONE HE HAS DYSPHAGIA FOR YEARS. LEXY IS DOING GOOD. BACK PAIN IS BETTER. NOW HE IS ABLE TO SIT UP AND EAT. DOING PT. WALKS WITH MINIMAL ASSISTANCE. NO NEW ISSUES. HE HAS NO ACUTE ISSUES. STABLE. HE IS DOING PT. DOING GOOD DAILY. DC PLAN ON COLTEN. Physical Examination - Vital Signs Temperature: 97.2 F Blood Pressure: 122/65 Pulse: 60 Respirations: 18 Pulse Ox (%): 98 - Physical Exam General: Oriented x3, Mild distress HEENT: Atraumatic, PERRLA, EOMI Neck: Supple, JVD not distended Respiratory: Clear to auscultation bilaterally, Normal air movement Cardiovascular: Regular rate/rhythm, Normal S1 S2 Gastrointestinal: Normal bowel sounds, No tenderness Musculoskeletal: No tenderness Integumentary: No rashes Neurological: Normal speech, Normal tone, Normal affect Lymphatics: No axilla or inguinal lymphadenopathy - Studies Medications List Reviewed: Yes Assessment And Plan - Current Problems (Diagnosis) (1) Dehydration Current Visit: Yes Status: Acute Plan: CLINICALL BACK TO NORMAL. IV TO SL NOW. NORMAL NOW. (2) DVT of lower extremity, bilateral Current Visit: No Status: Acute Plan: UNPROVOKED DVT. HE WILL NEED TO BE ON ELIQUIS FOR LIFE TIME LONG HE TOLERATES. HG IS LOWER AT 8.5 HE IS ON GOOD DOSE OF ELIQUIS NOW. HE WILL BE ON LIFETIME ANTICOAGUALTION BECAUSE OF A FIB AND UNPROVOKED DVT. HG STABLE ON ELIQUIS. THIS IS GOOD NEWS. [facility] HE HAS A LARGE HEMATOMA, IT SEEMS TO BE ORGANIZED AND NOT BLEEDING ANY LONGER. (3) Diabetes Current Visit: No Status: Chronic Plan: WATCH GLUCOSE. A1C IS 7.1 Qualifiers: Diabetes mellitus type: type 2 (4) Retroperitoneal hematoma Current Visit: No Status: Acute Plan: ORGANIZED WELL SO FAR. STABLE. NO ACUTE CHANGES.
[2021-04-24] MEDS: MAGNESIUM OXIDE 400 MG TAB PO SCH ×2 (14:04→19:11)
--- NOTE | 2021-04-24 14:47 | R.PN ---
PROGRESS NOTES ENCOUNTER DATE AND TIME: 04/24/2021 14:40 (CDT) NAME LEXY PAULSON DATE OF : 1950 DATE OF ADMISSION: 04/17/2021 15:51 (CDT) CARDIOVASCULAR STRESS,AFIB,CARDIAC TAMPONADE,CHEST PAINCHIEF COMPLAINT: Cardiac debility SUBJECTIVE: Pt denied any depression. Pt denied any Shortness of Breath. Hgb is low at 8.8. He is on ferrous sulfate. Ambulated 486' with standby assistance using a rolling walker. Ambulated 260' with contact guard assistance using a rolling walker. Propelled wheelchair 250' with s tandby assistance. Speech expression and comprehension is at modified independence. Toilet and tub tr ansfer with modified independence. VITAL SIGNS Temperature: 97.2 F SBP/DBP: 122/65 Pulse: 60 Resp: 16 MEDICATION ALLERGIES: No Known Drug Allergies (NKDA) ENVIRONMENTAL ALLERGIES: - Substance Allergies None Known - Other Allergies None Known NURSING: - Shower allowing shower ACTIVITIES OOB only with supervision THERAPIES: - Dietary and Nutrition Adequate Nutrition. Nutritional Education. Nutritional Supplements. PHYSICAL EXAM - Gen Alert and awake Lying in bed No apparent distress Oriented to: person, time, and place - Skin No skin breakdown. No abnormalities - Eyes No abnormalities - ENMT No abnormalities - Neck Chronic left neck surgery. - CVS RRR - Chest No abnormalities - Resp Clear to auscultation - Abd Soft - GI Non distended Deferred - No abnormalities - Ext Mild bilateral lower extremity edema. - MSK 4+/5 weakness in both lower extremities. - Neuro No focal deficits - Psych No abnormalities ASSESSMENT: Pt. is a 70 yo Right-handed male.On 04/14/2021 he was admitted to [facility] with diagno sis CARDIOVASCULAR STRESS,AFIB,CARDIAC TAMPONADE,CHEST PAIN.His impairment category is Cardiac 09 - Cardiac Disorders (09).Pre-morbidly, Pt. was independent/mod-I in Locomotion, Transfers Control, Self -Care, Endurance, and Communication; and he had good Social Cognition, Balance, and Sphincter Control .Currently, he has deficits of Locomotion, Safety Awareness, Balance, Transfers Control, Sphincter Co ntrol, and Endurance.Pt. is now referred to [facility] for acute in-patient re habilitation in order to maximize patient's functional independence in activities of daily living, st rength, ROM, and mobility.- Rehab Goal Patient has realistic goal of being discharged at assistance level 7-Ind to reside at Home with Fami ly/Relatives. MDM/PLAN: - Physical Therapy Gait dysfunction - to improve, our physical therapists will perform initial evaluation of pt's statu s upon admission and devise an individualized program for Gait Training, and Wheel Chair mobility Inability to transfer - to improve, our physical therapists will perform initial evaluation of pt's status upon admission and devise an individualized program for Bed mobility Need for home safety evaluation - to improve, our physical therapists will perform initial evaluatio n of pt's status upon admission and devise an individualized program for Home Evaluation Need in caregiver upon discharge - to improve, our physical therapists will perform initial evaluati on of pt's status upon admission and devise an individualized program for Caregiver Training New precaution - to improve, our physical therapists will perform initial evaluation of pt's status upon admission and devise an individualized program for Patient precaution education Poor balance - to improve, our physical therapists will perform initial evaluation of pt's status up on admission and devise an individualized program for Balance Training Poor endurance - to improve, our physical therapists will perform initial evaluation of pt's status upon admission and devise an individualized program for Endurance Training Weakness - to improve, our physical therapists will perform initial evaluation of pt's status upon a dmission and devise an individualized program for Aquatic Therapy, Neuromuscular Reeducation, and Str engthening Achieving independence - to improve, our physical therapists will perform initial evaluation of pt's status upon admission and devise an individualized program for Community Reintegration Activities - Occupational Therapy Need for palliative care nurse - to improve, our occupation therapists will perform initial evaluation of pt's status upon admission and devise an individualized program for Caregiver Training Weakness - to improve, our occupation therapists will perform initial evaluation of pt's status upon admission and devise an individualized program for Aquatic Therapy, Balance, Endurance, UE ROM, and UE strengthening - Other See attached MAR (Medication Administration Record) - Diet Type Continue Regular - Diet - Liquid Texture Continue Regular - Tube Feed Continue N/A - Diet - Solid Texture Continue Regular - Shower allowing shower FUNCTIONAL STATUS: UPDATED AT WEEKLY TEAM CONFERENCE - Bladder Same accident frequency: 7-Ind - No accidents in the past 7 days - Bowel Same accident frequency: 7-Ind - No accidents in the past 7 days - Walking Same score based on distance walked: 0(N/A) Same score based on distance walked: 1(<=50ft) - Wheelchair Same score based on distance traveled: 0(N/A) FUNCTIONAL STATUS: - Self-Care A. Eating Juan Luis B. Grooming sup C. Bathing modA D. Dressing - Upper Juan Luis E. Dressing - Lower modA F. Toileting Juan Luis - Sphincter Control G. Bladder control sup H. Bowel control sup - Transfers Control I. Bed/Chair/Wheelchair modA J. Toilet modA K. Tub/Shower modA - Locomotion L. Walk/Wheelchair (B) sup M. Stairs Juan Luis - Communication N. Comprehension (B) Jermaine O. Expression (B) Jermaine - Social Cognition P. Social Interaction Jermaine Q. Problem Solving Jermaine R. Memory Jermaine - Endurance Fair - Balance Fair - Safety Awareness Good QI SCORES: - Self-Care A. Eating 03-Partial/moderate assistance B. Oral hygiene 03-Partial/moderate assistance C. Toileting hygiene 03-Partial/moderate assistance E. Shower/bathe self 03-Partial/moderate assistance F. Upper body dressing 03-Partial/moderate assistance G. Lower body dressing 03-Partial/moderate assistance H. Putting on/taking off footwear 88-Not attempted due to medical condition or safety concerns - Mobility A. Roll left and right 03-Partial/moderate assistance B. Sit to lying 03-Partial/moderate assistance C. Lying to sitting on side of bed 03-Partial/moderate assistance D. Sit to stand 03-Partial/moderate assistance E. Chair/[id number]-[id number] transfer 03-Partial/moderate assistance F. Toilet transfer 03-Partial/moderate assistance G. Car transfer 88-Not attempted due to medical condition or safety concerns I. Walk 10 feet 03-Partial/moderate assistance J. Walk 50 feet with two turns 88-Not attempted due to medical condition or safety concerns K. Walk 150 feet 88-Not attempted due to medical condition or safety concerns L. Walking 10 feet on uneven surfaces 88-Not attempted due to medical condition or safety concerns M. 1 step (curb) 88-Not attempted due to medical condition or safety concerns N. 4 steps 10-Not attempted due to environmental limitations O. 12 steps 10-Not attempted due to environmental limitations P. Picking up object 88-Not attempted due to medical condition or safety concerns R. Wheel 50 feet with two turns 88-Not attempted due to medical condition or safety concerns S. Wheel 150 feet 88-Not attempted due to medical condition or safety concerns - Bladder and Bowel Bladder continence Bowel continence - Endurance Poor - Balance Poor - Safety Awareness Fair CURRENT [facility]. DEFICITS: Self-Care, Mobility, Endurance, Balance, and Safety Awareness SIGNATURE PANEL: (CDT)
[2021-04-25] MEDS: METOPROLOL XL 25 MG TAB PO SCH (05:48)
[2021-04-25] MEDS: LEVOTHYROXINE SOD 0.088 MG TAB PO SCH (06:37)
[2021-04-25] MEDS: LIDOCAINE 4% PATCH TOP SCH (07:01)
[2021-04-25] MEDS: INSULIN -REGULAR HUMAN 50 UNIT/0.5 ML ML SQ SCH ×4 (07:30→19:52)
[2021-04-25] MEDS: POLYETHYL GLY 3350 17 GM/DOSE PO SCH (08:05)
[2021-04-25] MEDS: MAGNESIUM OXIDE 400 MG TAB PO SCH ×2 (08:05→19:03)
[2021-04-25] MEDS: FERROUS SULFATE 325 MG TAB PO SCH (08:05)
[2021-04-25] MEDS: FENOFIBRATE 160 MG TAB PO SCH (08:05)
[2021-04-25] MEDS: ATORVASTATIN 10 MG TAB PO SCH (08:05)
[2021-04-25] MEDS: SERTRALINE HCL 100 MG TAB PO SCH (08:05)
[2021-04-25] MEDS: APIXABAN 5 MG TABLET PO SCH ×2 (08:06→19:03)
[2021-04-25] MEDS: FE SULF/FA/VIT B COMP & C TAB PO SCH (08:06)
[2021-04-25] MEDS: GABAPENTIN 300 MG CAP PO SCH ×2 (08:06→19:03)
[2021-04-25] MEDS: INSULIN GLARGINE 100 UNITS/ML SQ SCH (08:07)
[2021-04-25] MEDS: TRAMADOL HCL 50 MG TAB PO PRN (08:07)
[2021-04-25] MEDS: GLUCERNA SHAKE 237 ML CAN PO SCH ×2 (08:07→19:03)
--- NOTE | 2021-04-25 21:21 | P.PN ---
Subjective Date of Service: 04/25/21 Chief Complaint: LEXY WAS SENT TO REHAB FROM ACUTE FLOOR. Subjective: Improving LEXY CAME IN FOR SEVERE LEG SWELLING FROM DVT BELOW THE IVC FILTER. HE ALSO HAD LARGE RETROPERITONEAL HEMATOMA FROM THE [place]. HE IS TOLERATING ELIQUIS WELL. HE IS STABLE IN REHAB. STILL HAS SIGNIFICANT BACK PAIN. HE FEEL GOOD. HAS NO COMPLAINT. NO SIGNS OF GI BLEEDING. LEXY IS STABLE. HE HAD BARIUM SWALLOW DONE HE HAS DYSPHAGIA FOR YEARS. LEXY IS DOING GOOD. BACK PAIN IS BETTER. NOW HE IS ABLE TO SIT UP AND EAT. DOING PT. WALKS WITH MINIMAL ASSISTANCE. NO NEW ISSUES. HE HAS NO ACUTE ISSUES. STABLE. HE IS DOING PT. DOING GOOD DAILY. DC PLAN ON COLTEN. CAME TO OFFICE TODAY. SAYS HIS ANTIDEPRESSANT IS NOT WORKING. Physical Examination - Vital Signs Temperature: 96.3 F Blood Pressure: 126/67 Pulse: 63 Respirations: 18 Pulse Ox (%): 94 - Physical Exam General: Oriented x3, Mild distress HEENT: Atraumatic, PERRLA, EOMI Neck: Supple, JVD not distended Respiratory: Clear to auscultation bilaterally, Normal air movement Cardiovascular: Regular rate/rhythm, Normal S1 S2 Gastrointestinal: Normal bowel sounds, No tenderness Musculoskeletal: No tenderness Integumentary: No rashes Neurological: Normal speech, Normal tone, Normal affect Lymphatics: No axilla or inguinal lymphadenopathy - Studies Medications List Reviewed: Yes Assessment And Plan - Current Problems (Diagnosis) (1) Dehydration Current Visit: Yes Status: Acute Plan: CLINICALL BACK TO NORMAL. IV TO SL NOW. NORMAL NOW. (2) DVT of lower extremity, bilateral Current Visit: No Status: Acute Plan: UNPROVOKED DVT. HE WILL NEED TO BE ON ELIQUIS FOR LIFE TIME LONG HE TOLERATES. HG IS LOWER AT 8.5 HE IS ON GOOD DOSE OF ELIQUIS NOW. HE WILL BE ON LIFETIME ANTICOAGUALTION BECAUSE OF A FIB AND UNPROVOKED DVT. HG STABLE ON ELIQUIS. THIS IS GOOD NEWS. [facility] HE HAS A LARGE HEMATOMA, IT SEEMS TO BE ORGANIZED AND NOT BLEEDING ANY LONGER. (3) Diabetes Current Visit: No Status: Chronic Plan: WATCH GLUCOSE. A1C IS 7.1 Qualifiers: Diabetes mellitus type: type 2 (4) Retroperitoneal hematoma Current Visit: No Status: Acute Plan: ORGANIZED WELL SO FAR. STABLE. NO ACUTE CHANGES. (5) Depression Current Visit: Yes Status: Chronic Plan: STOP ZOLOFT. START ON VENLAFAXIN 75 MG DAILY. HE IS STABLE BUT STAYS DEPRESSED. Qualifiers: Depression Type: major depressive disorder
[2021-04-26] MEDS: METOPROLOL XL 25 MG TAB PO SCH (05:28)
[2021-04-26] MEDS: LEVOTHYROXINE SOD 0.088 MG TAB PO SCH (06:58)
[2021-04-26] MEDS: INSULIN -REGULAR HUMAN 50 UNIT/0.5 ML ML SQ SCH ×4 (07:30→21:04)
[2021-04-26] MEDS: POLYETHYL GLY 3350 17 GM/DOSE PO SCH (08:00)
[2021-04-26] MEDS: FENOFIBRATE 160 MG TAB PO SCH (08:16)
[2021-04-26] MEDS: FE SULF/FA/VIT B COMP & C TAB PO SCH (08:16)
[2021-04-26] MEDS: VENLAFAXINE HCL XR 75 MG CAP PO SCH (08:17)
[2021-04-26] MEDS: GABAPENTIN 300 MG CAP PO SCH ×2 (08:17→20:15)
[2021-04-26] MEDS: ATORVASTATIN 10 MG TAB PO SCH (08:17)
[2021-04-26] MEDS: APIXABAN 5 MG TABLET PO SCH ×2 (08:18→20:15)
[2021-04-26] MEDS: LIDOCAINE 4% PATCH TOP SCH (08:18)
[2021-04-26] MEDS: TRAMADOL HCL 50 MG TAB PO PRN (08:18)
[2021-04-26] MEDS: FERROUS SULFATE 325 MG TAB PO SCH (08:18)
[2021-04-26] MEDS: INSULIN GLARGINE 100 UNITS/ML SQ SCH (08:19)
[2021-04-26] MEDS: MAGNESIUM OXIDE 400 MG TAB PO SCH ×2 (09:17→20:15)
[2021-04-26] MEDS: GLUCERNA SHAKE 237 ML CAN PO SCH ×2 (12:18→20:00)
--- NOTE | 2021-04-26 18:02 | P.PN ---
Subjective Date of Service: 04/26/21 Chief Complaint: LEXY WAS SENT TO REHAB FROM ACUTE FLOOR. Subjective: Improving LEXY CAME IN FOR SEVERE LEG SWELLING FROM DVT BELOW THE IVC FILTER. HE ALSO HAD LARGE RETROPERITONEAL HEMATOMA FROM THE [place]. HE IS TOLERATING ELIQUIS WELL. HE IS STABLE IN REHAB. STILL HAS SIGNIFICANT BACK PAIN. HE FEEL GOOD. HAS NO COMPLAINT. NO SIGNS OF GI BLEEDING. LEXY IS STABLE. HE HAD BARIUM SWALLOW DONE HE HAS DYSPHAGIA FOR YEARS. LEXY IS DOING GOOD. BACK PAIN IS BETTER. NOW HE IS ABLE TO SIT UP AND EAT. DOING PT. WALKS WITH MINIMAL ASSISTANCE. NO NEW ISSUES. HE HAS NO ACUTE ISSUES. STABLE. HE IS DOING PT. DOING GOOD DAILY. DC PLAN ON COLTEN. CAME TO OFFICE TODAY. SAYS HIS ANTIDEPRESSANT IS NOT WORKING. HE IS EXCITED TO GO HOME IN AM. Review of Systems 10-point ROS is otherwise unremarkable General: Weakness, Malaise Physical Examination - Vital Signs Temperature: 98.6 F Blood Pressure: 105/57 Pulse: 57 Respirations: 16 Pulse Ox (%): 98 - Physical Exam General: Oriented x3, Mild distress HEENT: Atraumatic, PERRLA, EOMI Neck: Supple, JVD not distended Respiratory: Clear to auscultation bilaterally, Normal air movement Cardiovascular: Regular rate/rhythm, Normal S1 S2 Gastrointestinal: Normal bowel sounds, No tenderness Musculoskeletal: No tenderness Integumentary: No rashes Neurological: Normal speech, Normal tone, Normal affect Lymphatics: No axilla or inguinal lymphadenopathy - Studies Medications List Reviewed: Yes Assessment And Plan - Current Problems (Diagnosis) (1) Dehydration Current Visit: Yes Status: Acute Plan: CLINICALL BACK TO NORMAL. IV TO SL NOW. NORMAL NOW. (2) DVT of lower extremity, bilateral Current Visit: No Status: Acute Plan: UNPROVOKED DVT. HE WILL NEED TO BE ON ELIQUIS FOR LIFE TIME LONG HE TOLERATES. HG IS LOWER AT 8.5 HE IS ON GOOD DOSE OF ELIQUIS NOW. HE WILL BE ON LIFETIME ANTICOAGUALTION BECAUSE OF A FIB AND UNPROVOKED DVT. HG STABLE ON ELIQUIS. THIS IS GOOD NEWS. EVENTHOUGH HE HAS A LARGE HEMATOMA, IT SEEMS TO BE ORGANIZED AND NOT BLEEDING ANY LONGER. (3) Diabetes Current Visit: No Status: Chronic Plan: WATCH GLUCOSE. A1C IS 7.1 GLUCOSE IS HIGH. WILL FU OUTPATIENT. Qualifiers: Diabetes mellitus type: type 2 (4) Retroperitoneal hematoma Current Visit: No Status: Acute Plan: ORGANIZED WELL SO FAR. STABLE. NO ACUTE CHANGES. (5) Depression Current Visit: Yes Status: Chronic Plan: STOP ZOLOFT. START ON VENLAFAXIN 75 MG DAILY. HE IS STABLE BUT STAYS DEPRESSED. Qualifiers: Depression Type: major depressive disorder
[2021-04-27] MEDS: METOPROLOL XL 25 MG TAB PO SCH (05:28)
[2021-04-27 07:03] LABS: Absolute Lymphocytes (CBC) 0.6 K/uL (0.7-4.9); Basophils % 0.5 % (0-1.3); Lymphocytes % 11.1 % (15.3-44.8); MPV 6.6 fL (7.6-11.3); RBC Red Blood Cell Count 2.98 M/uL (4.33-5.43)
[2021-04-27] MEDS: LEVOTHYROXINE SOD 0.088 MG TAB PO SCH (07:06)
[2021-04-27 07:10] VITALS: BP 118/60; TEMP 96.4
[2021-04-27 07:20] LABS: Albumin 2.7 g/dL (3.4-5.0); Magnesium 2.6 mg/dL (1.8-2.4); Potassium 4.5 mmol/L (3.5-5.1); Prealbumin 11.2 mg/dL (20-40)
[2021-04-27] MEDS: INSULIN -REGULAR HUMAN 50 UNIT/0.5 ML ML SQ SCH ×2 (07:30→11:30)
[2021-04-27] MEDS: LIDOCAINE 4% PATCH TOP SCH (08:00)
[2021-04-27] MEDS: GLUCERNA SHAKE 237 ML CAN PO SCH (08:00)
[2021-04-27] MEDS: ATORVASTATIN 10 MG TAB PO SCH (08:45)
[2021-04-27] MEDS: MAGNESIUM OXIDE 400 MG TAB PO SCH (08:45)
[2021-04-27] MEDS: FENOFIBRATE 160 MG TAB PO SCH (08:45)
[2021-04-27] MEDS: FE SULF/FA/VIT B COMP & C TAB PO SCH (08:45)
[2021-04-27] MEDS: FERROUS SULFATE 325 MG TAB PO SCH (08:46)
[2021-04-27] MEDS: VENLAFAXINE HCL XR 75 MG CAP PO SCH (08:46)
[2021-04-27] MEDS: APIXABAN 5 MG TABLET PO SCH (08:46)
[2021-04-27] MEDS: GABAPENTIN 300 MG CAP PO SCH (08:47)
[2021-04-27] MEDS: POLYETHYL GLY 3350 17 GM/DOSE PO SCH (08:48)
[2021-04-27] MEDS: INSULIN GLARGINE 100 UNITS/ML SQ SCH (08:51)
--- NOTE | 2021-04-27 09:53 | R.DS ---
DISCHARGE SUMMARY FACILITY [facility] MR# [id number] NAME LEXY PAULSON AD[address]ESS [address] [place] [address] PHONE DATE OF 1950 AGE 70 SSN# [id number] GENDER Male MARITAL STATUS ENCOUNTER PHYSICIAN Dr. Marcelino Brock REFERRING DOCTOR SHANNON CULVER REFERRING FACILITY [facility] DISCHARGE DIAGNOSIS: - Cardiac 09 - Cardiac Disorders (09) CARDIOVASCULAR STRESS,AFIB,CARDIAC TAMPONADE,CHEST PAIN. DATE OF ADMISSION 04/17/2021 15:51 (CDT) MEDICATION ALLERGIES: No Known Drug Allergies (NKDA) ENVIRONMENTAL ALLERGIES: - Substance Allergies None Known - Other Allergies None Known DISCHARGE MEDICATIONS: Other- ContinueSee attached MAR (Medication Administration Record). NURSING: - Shower allowing shower ACTIVITIES OOB only with supervision THERAPIES: - Dietary and Nutrition Adequate Nutrition Nutritional Education Nutritional Supplements HISTORY OF PRESENT ILLNESS: Pt. is a 70 yo Right-handed male.On 04/14/2021 he was admitted to [facility] with diagno sis CARDIOVASCULAR STRESS,AFIB,CARDIAC TAMPONADE,CHEST PAIN.His impairment category is Cardiac 09 - Cardiac Disorders ().Pre-morbidly, Pt. was independent/mod-I in Locomotion, Transfers Control, Self -Care, Endurance, and Communication; and he had good Social Cognition, Balance, and Sphincter Control .Currently, he has deficits of Locomotion, Safety Awareness, Balance, Transfers Control, Sphincter Co ntrol, and Endurance.Pt. is now referred to [facility] for acute in-patient re habilitation in order to maximize patient's functional independence in activities of daily living, st rength, ROM, and mobility.- Rehab Goal Patient has realistic goal of being discharged at assistance level 7-Ind to reside at Home with Fami ly/Relatives. DIET - LIQUID TEXTURE: On 04/17/2021 Pt was upgraded to Regular Diet - Liquid Texture. DIET - SOLID TEXTURE: On 04/17/2021 Pt was upgraded to Regular Diet - Solid Texture. DIET TYPE: On 04/17/2021 Pt was upgraded to Regular Diet Type. TUBE FEED: On 04/17/2021 Pt was changed to N/A Tube Feed. DISCHARGE PHYSICAL EXAM - Gen Alert and awake Lying in bed No apparent distress Oriented to: person, time, and place - Skin No skin breakdown. No abnormalities - Eyes No abnormalities - ENMT No abnormalities - Neck Chronic left neck surgery. - CVS RRR - Chest No abnormalities - Resp Clear to auscultation - Abd Soft - GI Non distended Deferred - No abnormalities - Ext Mild bilateral lower extremity edema. - MSK 4+/5 weakness in both lower extremities. - Neuro No focal deficits - Psych No abnormalities QI SCORES: - Self-Care A. Eating 03-Partial/moderate assistance B. Oral hygiene 03-Partial/moderate assistance C. Toileting hygiene 03-Partial/moderate assistance E. Shower/bathe self 03-Partial/moderate assistance F. Upper body dressing 03-Partial/moderate assistance G. Lower body dressing 03-Partial/moderate assistance H. Putting on/taking off footwear 88-Not attempted due to medical condition or safety concerns - Mobility A. Roll left and right 03-Partial/moderate assistance B. Sit to lying 03-Partial/moderate assistance C. Lying to sitting on side of bed 03-Partial/moderate assistance D. Sit to stand 03-Partial/moderate assistance E. Chair/[id number]-fqrcy transfer 03-Partial/moderate assistance F. Toilet transfer 03-Partial/moderate assistance G. Car transfer 88-Not attempted due to medical condition or safety concerns I. Walk 10 feet 03-Partial/moderate assistance J. Walk 50 feet with two turns 88-Not attempted due to medical condition or safety concerns K. Walk 150 feet 88-Not attempted due to medical condition or safety concerns L. Walking 10 feet on uneven surfaces 88-Not attempted due to medical condition or safety concerns M. 1 step (curb) 88-Not attempted due to medical condition or safety concerns N. 4 steps 10-Not attempted due to environmental limitations O. 12 steps 10-Not attempted due to environmental limitations P. Picking up object 88-Not attempted due to medical condition or safety concerns R. Wheel 50 feet with two turns 88-Not attempted due to medical condition or safety concerns S. Wheel 150 feet 88-Not attempted due to medical condition or safety concerns - Bladder and Bowel Bladder continence Bowel continence - Endurance Poor - Balance Poor - Safety Awareness Fair DISCHARGE INSTRUCTIONS: - Followup The patient will have a incentive spirometry on 04/27/2021. DISCHARGE PLAN, FOLLOW UP CARE PROVISIONS: - Estimated Length of Stay (days) 10. - Consensus on plan Discharge plan has been discussed with primary caregiver. Patient/Family is in agreement with the arti n. Primary caregiver is in agreement with the plan. - Patient/Family Goals Return home independently. - Planned Living Setting Upon Discharge Home, to live with Family/Relatives. Transitional Living. SIGNATURE PANEL: (CDT)
--- NOTE | 2021-04-27 13:10 | P.PN ---
Subjective Date of Service: 04/27/21 Chief Complaint: LEXY WAS SENT TO REHAB FROM ACUTE FLOOR. Subjective: Improving LEXY CAME IN FOR SEVERE LEG SWELLING FROM DVT BELOW THE IVC FILTER. HE ALSO HAD LARGE RETROPERITONEAL HEMATOMA FROM THE [place]. HE IS TOLERATING ELIQUIS WELL. HE IS STABLE IN REHAB. STILL HAS SIGNIFICANT BACK PAIN. HE FEEL GOOD. HAS NO COMPLAINT. NO SIGNS OF GI BLEEDING. LEXY IS STABLE. HE HAD BARIUM SWALLOW DONE HE HAS DYSPHAGIA FOR YEARS. LEXY IS DOING GOOD. BACK PAIN IS BETTER. NOW HE IS ABLE TO SIT UP AND EAT. DOING PT. WALKS WITH MINIMAL ASSISTANCE. NO NEW ISSUES. HE HAS NO ACUTE ISSUES. STABLE. HE IS DOING PT. DOING GOOD DAILY. DC PLAN ON COLTEN. CAME TO OFFICE TODAY. SAYS HIS ANTIDEPRESSANT IS NOT WORKING. HE IS EXCITED TO GO HOME IN AM. BOB CALLED AND I WENT OVER ALL MEDS WITH HER. HE IS ON ELIQUIS AND LOWER DOSE OF METOPROLOL. VENLAFAXIN INSTEAD OF ZOLFOT FOR DEPRESSION. Physical Examination - Vital Signs Temperature: 96.4 F Blood Pressure: 118/60 Pulse: 55 Respirations: 16 Pulse Ox (%): 98 - Physical Exam General: Oriented x3, Mild distress, Other (FACIAL PARALYSIS.) HEENT: Atraumatic, PERRLA, EOMI Neck: Supple, JVD not distended Respiratory: Clear to auscultation bilaterally, Normal air movement Cardiovascular: Regular rate/rhythm, Normal S1 S2 Gastrointestinal: Normal bowel sounds, No tenderness Musculoskeletal: No tenderness Integumentary: No rashes Neurological: Normal speech, Normal tone, Normal affect Lymphatics: No axilla or inguinal lymphadenopathy - Studies Laboratory Data (last 24 hrs) 04/27/21 06:18: Sodium 141, Potassium 4.5, BUN 22 H, Creatinine 1.05, Glucose 120 H, Magnesium 2.6 H 04/27/21 06:18: WBC 5.40, Hgb 8.9 L, Hct 27.0 L, Plt Count 316 Medications List Reviewed: Yes Assessment And Plan - Current Problems (Diagnosis) (1) Dehydration Current Visit: Yes Status: Acute Plan: CLINICALL BACK TO NORMAL. IV TO SL NOW. NORMAL NOW. (2) DVT of lower extremity, bilateral Current Visit: No Status: Acute Plan: UNPROVOKED DVT. HE WILL NEED TO BE ON ELIQUIS FOR LIFE TIME LONG HE TOLERATES. HG IS LOWER AT 8.5 HE IS ON GOOD DOSE OF ELIQUIS NOW. HE WILL BE ON LIFETIME ANTICOAGUALTION BECAUSE OF A FIB AND UNPROVOKED DVT. HG STABLE ON ELIQUIS. THIS IS GOOD NEWS. EVENTHOUGH HE HAS A LARGE HEMATOMA, IT SEEMS TO BE ORGANIZED AND NOT BLEEDING ANY LONGER. HE IS DOING GREAT ON MEDS. SO FAR NO COMPLICATIONS. (3) Diabetes Current Visit: No Status: Chronic Plan: WATCH GLUCOSE. A1C IS 7.1 GLUCOSE IS HIGH. WILL FU OUTPATIENT. Qualifiers: Diabetes mellitus type: type 2 (4) Retroperitoneal hematoma Current Visit: No Status: Acute Plan: ORGANIZED WELL SO FAR. STABLE. NO ACUTE CHANGES. (5) Depression Current Visit: Yes Status: Chronic Plan: STOP ZOLOFT. START ON VENLAFAXIN 75 MG DAILY. HE IS STABLE BUT STAYS DEPRESSED. Qualifiers: Depression Type: major depressive disorder
== END 2021-04-27 14:25 | disposition home or self-care (01) | DRG 300 ==
LOC: 5TH 15:51
PROVIDERS: ADMIT Psychiatry & Neurology Neurology with Special Qualifications in Child Neurology; ATTEND Psychiatry & Neurology Neurology with Special Qualifications in Child Neurology
DX: I82.403 Acute embolism and thrombosis of unspecified deep veins of lower extremity, bilateral (principal); I31.4 Cardiac tamponade; S36.892A Contusion of other intra-abdominal organs, initial encounter; I48.91 Unspecified atrial fibrillation; E11.9 Type 2 diabetes mellitus without complications; F32.9 Major depressive disorder, single episode, unspecified
CPT/HCPCS: 36415; 74230; 80048; 81001; 82040; 82947; 83735; 84134; 85025; 87086; 87088; 92507; 92523; 92526; 92611; 97110; 97112; 97116; 97127; 97161; 97530; 97542; J1815

== ENCOUNTER 2023-09-08 12:41 | Observation (INO) | payer OTHER ==
[2023-09-08 13:33] LABS: Absolute Lymphocytes (CBC) 0.4 K/uL (0.7-4.9); Hematocrit 37.4 % (39.6-49.0); Lymphocytes % 12.3 % (15.3-44.8); MCV 89.1 fL (80-100); MPV 6.9 fL (7.6-11.3); Platelets 199 thou/uL (152-406); RBC Red Blood Cell Count 4.19 M/uL (4.33-5.43)
[2023-09-08 13:39] LABS: Protime INR 1.86
[2023-09-08 13:58] LABS: Magnesium 2.2 mg/dL (1.6-2.4); Potassium 3.6 mEq/L (3.5-5.1)
[2023-09-08 14:02] LABS: Troponin High Sensitivity 63.4 pg/mL (<58.9)
--- NOTE | 2023-09-08 14:15 | RAD REPORT ---
EXAM DESCRIPTION: CT - [id number] - 09/08/2023 1:35 pm CLINICAL HISTORY: DIZZINESS COMPARISON: Soft Tissue Neck W/Contr dated 05/03/2021; Soft Tissue Neck W/Contr dated 10/02/2018; Rad Therapy Fld Place Head dated 12/17/2018 TECHNIQUE: Axial thin cut noncontrast CT images of the head were obtained. Axial thin cut noncontrast CT images of the cervical spine were obtained. Multiplanar reformatted images were generated and reviewed. All CT scans are performed using dose optimization technique as appropriate and may include automated exposure control or mA/KV adjustment according to patient size. FINDINGS: CT HEAD WITHOUT CONTRAST: No acute hemorrhage, hydrocephalus or extra-axial collection is identified. High left frontal region of encephalomalacia extending to the operculum, stable. No areas of brain edema or midline shift. Ri ght parietal scalp swelling and small hematoma. The paranasal sinuses and mastoids are clear.The calvarium is intact. CT CERVICAL SPINE WITHOUT CONTRAST: No fracture or subluxation. Scattered degenerative changes most pronounced at the atlanto dens articu lation, and at C4-5 and C6-7 levels, with early areas of neural foraminal narrowing, up to moderate o n the right at C4-5. No prevertebral soft tissues swelling is identified. IMPRESSION: No acute traumatic intracranial or cervical spine findings. Right parietal scalp swelling and hematoma. Chronic findings as above including left frontal region encephalomalacia suggestive of remote ischemi a, and scattered multilevel cervical spine degenerative changes.
--- NOTE | 2023-09-08 14:20 | RAD REPORT ---
EXAM DESCRIPTION: RADChest Single View09/08/2023 1:49 pm CLINICAL HISTORY: MALAISE COMPARISON: Chest Pa And Lat (2 Views) dated 05/08/2022; Chest Single View dated 04/13/2021 TECHNIQUE: Portable AP view of the chest. FINDINGS: The lungs are clear. No pneumothorax or effusion. The cardiomediastinal contours are unre markable. IMPRESSION: No acute cardiopulmonary process.
--- NOTE | 2023-09-08 15:25 | ER ---
Nurse's Notes [facility] Name: John Cullen Age: 73 yrs Sex: Male : 1950 Arrival Date: 09/08/2023 Time: 12:41 Bed 17 Private MD: Diagnosis: Syncope;Dizziness and giddiness;Scalp Laceration Presentation: 09/08 12:55 Chief complaint: EMS states: pt stood up, got dizzy and fell back, hit head on ground, iw no LOC, on eliquis, has small knot and abrasion to right back of head. pt states he stated a new BP medication recently but does not remember the name, pt A\T\OX3. Coronavirus screen: At this time, the client does not indicate any symptoms associated with coronavirus-19. Ebola Screen: Patient negative for fever greater than or equal to 101.5 degrees Fahrenheit, and additional compatible Ebola Virus Disease symptoms Patient denies exposure to infectious person. Patient denies travel to an Ebola-affected area in the 21 days before illness onset. Initial Sepsis Screen: Does the patient meet any 2 criteria? No. Patient's initial sepsis screen is negative. Does the patient have a suspected source of infection? No. Patient's initial sepsis screen is negative. Risk Assessment: Do you want to hurt yourself or someone else? Patient reports no desire to harm self or others. Onset of symptoms was September 08, 2023. 12:55 Method Of Arrival: EMS: [facility] iw 12:55 Acuity: NATHANIEL 3 iw Historical: - Allergies: 13:01 No Known Allergies; iw - Home Meds: 13:02 Lantus U-100 Insulin 100 unit/mL Sub-Q solution 30 units daily [Active]; Ozempic 1 iw mg/dose (4 mg/3 mL) subcutaneous Pen Injector every week [Active]; Xigduo XR 10-1,000 mg oral tablet,immed \T\ ext release,biphasic 24hr daily [Active]; fenofibrate oral 145 mg daily [Active]; levothyroxine 88 mcg tablet daily [Active]; metoprolol succinate 25 mg oral Tablet, Extended Release 24 hr daily [Active]; atorvastatin 10 mg oral tablet daily [Active]; Eliquis 5 mg oral tablet 2 times per day [Active]; venlafaxine 75 mg oral tablet 2 times per day [Active]; Myrbetriq 25 mg oral Tablet, Extended Release 24 hr daily [Active]; tamsulosin 0.4 mg oral capsule daily [Active]; Orgovyx 120 mg oral tablet daily [Active]; - PMHx: 13:08 stroke; Diabetes mellitus; iw - Immunization history:: Adult Immunizations unknown. - Social history:: Smoking status: unknown. Screenin:31 [facility] ED Fall Risk Assessment (Adult) History of falling in the last 3 months, ph including since admission Yes- physiologic fall (2 pts) Confusion or Disorientation No (0 pts) Intoxicated or Sedated No (0 pts) Impaired Gait No (0 pts) Mobility Assist Device Used No (0 pt) Altered Elimination No (0 pt) Score/Fall Risk Level 0 - 2 = Low Risk Oriented to surroundings, Maintained a safe environment, Provided non-skid footwear, Hourly rounding (assess needs \T\ fall precautionary measures) done. Abuse screen: Denies threats or abuse. Denies injuries from another. 14:32 Nutritional screening: No deficits noted. Tuberculosis screening: No symptoms or risk ph factors identified. Assessment: 15:49 General: Appears in no apparent distress. comfortable, slender, well groomed, Behavior ph is calm, cooperative, appropriate for age. Pain: Complains of pain in back of head. Neuro: Level of Consciousness is awake, alert, obeys commands, Oriented to person, place, time, situation. Cardiovascular: Reports lightheadedness, Denies chest pain. Respiratory: Airway is patent Respiratory effort is even, unlabored. GI: No signs and/or symptoms were reported involving the gastrointestinal system. Derm: Skin is pink, warm \T\ dry. Musculoskeletal: Circulation, motion, and sensation intact. Injury Description: Laceration sustained to right parietal area. Vital Signs: 12:55 BP 146 / 74; Pulse 75; Resp 16; Temp 97.6; Pulse Ox 98% on R/A; iw 15:41 BP 151 / 78; Pulse 70; Resp 18; Pulse Ox 98% on R/A; ph 18:04 BP 126 / 76; Pulse 74; Resp 18; Temp 98; Pulse Ox 99% on R/A; ph ED Course: 12:49 Patient arrived in ED. nj1 12:58 Lorena Cerna FNP [facility] 12:58 Lui Leyva MD is Attending Physician. [facility] 13:01 Triage completed. iw 13:02 Arm band placed on. iw 13:12 Elif Farris is Primary Nurse. cp4 13:36 CT Head C Spine In Process Unspecified. EDMS 13:51 XRAY Chest (1 view) In Process Unspecified. EDMS 14:31 Patient has correct armband on for positive identification. Placed in gown. Bed in low ph position. Call light in reach. Pulse ox on. NIBP on. Door closed. Noise minimized. Warm blanket given. 15:15 Wound care: to laceration located on right parietal area was cleaned with Hibiclens, ph irrigated with normal saline, Patient tolerated well. Wound care: to abrasion, located on right parietal area was cleaned with Hibiclens, irrigated with normal saline, Patient tolerated well. 15:23 Wei Roman MD is Hospitalizing Provider. [facility] 15:30 Assist provider with laceration repair on back of head that was 2.5 cm. or less using ph yvonne. Set up tray. Performed by Lorena DOTSON Patient tolerated well. 15:41 Patient admitted, IV remains in place. 22G to LAC. ph 15:48 Urinalysis w/ reflexes Sent. ph Administered Medications: No medications were administered Medication: 14:32 VIS not applicable for this client. ph Outcome: 15:24 Decision to Hospitalize by Provider. [facility] 18:28 Admitted to Med/surg accompanied by tech, family with patient, via stretcher, with ph chart, 18:28 Condition: stable 18:28 Instructed on the need for admit, 18:29 Patient left the ED. ph Signatures: Dispatcher [employer] EDMS Annalise Hernandez, RN Carrie Cancino RN RN Lorena Cerna FNP [place] [id number] Yvette Mcintosh RN RN [facility] Elif Farris cp4
--- NOTE | 2023-09-08 15:25 | EDPHYS ---
Physician Documentation [facility] Name: John Cullen Age: 73 yrs Sex: Male : 1950 Arrival Date: 09/08/2023 Time: 12:41 Bed 17 Private MD: ED Physician Lui Leyva HPI: 09/08 12:55 This 73 yrs old Male presents to ER via EMS with complaints of Fall Injury. [facility] 12:55 Details of fall: The patient fell from an upright position, while standing. Onset: The [facility] symptoms/episode began/occurred acutely. Associated injuries: The patient sustained injury to the head, hematoma, laceration, pain. reports that patient stood up from eating, seemed to stare off and appeared disoriented, and fell backwards hitting his head. The patient originally denied LOC, but states that he does not remember how the incident happened. Family reports that the patient was just started on a new blood pressure medication prescribed by Dr. Roman. He has a history of a stroke in 2002, diabetes, hypertension, and pericardial effusion. He currently complains of a laceration to the posterior scalp. He takes Eliquis 5 mg daily.. Historical: - Allergies: 13:01 No Known Allergies; iw - Home Meds: 13:02 Lantus U-100 Insulin 100 unit/mL Sub-Q solution 30 units daily [Active]; Ozempic 1 iw mg/dose (4 mg/3 mL) subcutaneous Pen Injector every week [Active]; Xigduo XR 10-1,000 mg oral tablet,immed \T\ ext release,biphasic 24hr daily [Active]; fenofibrate oral 145 mg daily [Active]; levothyroxine 88 mcg tablet daily [Active]; metoprolol succinate 25 mg oral Tablet, Extended Release 24 hr daily [Active]; atorvastatin 10 mg oral tablet daily [Active]; Eliquis 5 mg oral tablet 2 times per day [Active]; venlafaxine 75 mg oral tablet 2 times per day [Active]; Myrbetriq 25 mg oral Tablet, Extended Release 24 hr daily [Active]; tamsulosin 0.4 mg oral capsule daily [Active]; Orgovyx 120 mg oral tablet daily [Active]; - PMHx: 13:08 stroke; Diabetes mellitus; iw - Immunization history:: Adult Immunizations unknown. - Social history:: Smoking status: unknown. ROS: 12:55 Constitutional: Negative for fever, chills, and weight loss, Eyes: Negative for injury, jh7 pain, redness, and discharge, ENT: Negative for injury, pain, and discharge, Neck: Negative for injury, pain, and swelling, Cardiovascular: Negative for chest pain, palpitations, and edema, Respiratory: Negative for shortness of breath, cough, wheezing, and pleuritic chest pain, Abdomen/GI: Negative for abdominal pain, nausea, vomiting, diarrhea, and constipation, Back: Negative for injury and pain, MS/Extremity: Negative for injury and deformity, Neuro: Negative for headache, weakness, numbness, tingling, and seizure, 12:55 Skin: Positive for hematoma, laceration(s), of the posterior scalp, 12:55 All other systems are negative, Exam: 12:55 Constitutional: This is a well developed, well nourished patient who is awake, alert, jh7 and in no acute distress. Head/Face: Normocephalic, atraumatic. Eyes: Pupils equal round and reactive to light, extra-ocular motions intact. Lids and lashes normal. Conjunctiva and sclera are non-icteric and not injected. Cornea within normal limits. Periorbital areas with no swelling, redness, or edema. Neck: Trachea midline, no thyromegaly or masses palpated, and no cervical lymphadenopathy. Supple, full range of motion without nuchal rigidity, or vertebral point tenderness. No Meningismus. Cardiovascular: Regular rate and rhythm with a normal S1 and S2. No gallops, murmurs, or rubs. Normal PMI, no JVD. No pulse deficits. Respiratory: Lungs have equal breath sounds bilaterally, clear to auscultation and percussion. No rales, rhonchi or wheezes noted. No increased work of breathing, no retractions or nasal flaring. Abdomen/GI: Soft, non-tender, with normal bowel sounds. No distension or tympany. No guarding or rebound. No evidence of tenderness throughout. Back: No spinal tenderness. No costovertebral tenderness. Full range of motion. MS/ Extremity: Pulses equal, no cyanosis. Neurovascular intact. Full, normal range of motion. 12:55 Head/face: Noted is hematoma, that is moderate, a laceration(s), that is linear, 2 cm(s), 12:55 Skin: injury, laceration(s), the wound is approximately 2 cm(s), of the posterior scalp, 12:55 Neuro: Orientation: to person, place, time \T\ situation. Mentation: is normal, Memory: is normal, Cranial nerves: Facial asymmetry due to previous stroke. Right-sided deficits also present from previous stroke., Vital Signs: 12:55 BP 146 / 74; Pulse 75; Resp 16; Temp 97.6; Pulse Ox 98% on R/A; iw 15:41 BP 151 / 78; Pulse 70; Resp 18; Pulse Ox 98% on R/A; ph 18:04 BP 126 / 76; Pulse 74; Resp 18; Temp 98; Pulse Ox 99% on R/A; ph Laceration: 15:15 Wound Repair of 2cm ( 0.8in ) subcutaneous laceration to posterior scalp. Distal jh7 neuro/vascular/tendon intact. Skin closed with 2 1-0 [place] using simple sutures and sterile technique. Dressed with non-adherent dressing. Patient tolerated well. MDM: 12:58 Patient medically screened. jh7 17:00 Differential diagnosis: abrasion, closed head injury, contusion, laceration, Syncope, jh7 ND, intracranial hemorrhage, dizziness, orthostatic hypotension, vasovagal syncope, cardiac arrhythmia. Data reviewed: vital signs, nurses notes, lab test result(s), EKG, radiologic studies, CT scan, plain films. Consideration of Admission/Observation Patient was admitted/placed on observation. I considered the following discharge prescriptions or medication management in the emergency department Medications were administered in the Emergency Department. See MAR. Independent interpretation of the following test(s) in the Emergency Department EKG: See my EKG interpretation above. Care significantly affected by the following chronic conditions: Diabetes, Hypertension. Counseling: I had a detailed discussion with the patient and/or guardian regarding the historical points, exam findings, and any diagnostic results supporting the discharge/admit diagnosis, the need for further work-up and treatment in the hospital. Response to treatment: the patient's symptoms have mildly improved after treatment. ED course: Sent text message to Dr. Abel jaimes relaying CT, EKG, and lab results. Informed him that we would be admitting the patient for syncope.. ED course: Have not heard from Dr. Roman so another text message was sent informing him that I admitted the patient and ordered basic labs, mild sliding scale, regular diet, and to continue home meds.. 18:01 ED course: Dr. Leyva contacted Dr. Roman who responded to him stating that he had 7 received my text messages, but had not responded yet.. 09/08 13:06 Order name: Basic Metabolic Panel; Complete Time: 14:13 [facility] 09/08 13:06 Order name: CBC with Diff; Complete Time: 14:13 [facility] 09/08 13:06 Order name: Magnesium; Complete Time: 14:13 [facility] 09/08 13:06 Order name: NT PRO-BNP; Complete Time: 14:13 [facility] 09/08 13:06 Order name: PT-INR; Complete Time: 14:13 [facility] 09/08 13:06 Order name: Troponin HS; Complete Time: 14:13 [facility] 09/08 13:08 Order name: Urinalysis w/ reflexes; Complete Time: 15:58 [facility] 09/08 17:06 Order name: Urinalysis w/ reflexes; Complete Time: 08:52 [facility] 09/08 17:06 Order name: CBC with Automated Diff [facility] 09/08 17:06 Order name: CBC with Automated Diff; Complete Time: 08:52 [facility] 09/08 17:06 Order name: Comprehensive Metabolic Panel [facility] 09/08 17:06 Order name: Comprehensive Metabolic Panel; Complete Time: 08:52 [facility] 09/08 17:06 Order name: Protime (+INR) [facility] 09/08 17:06 Order name: Protime (+INR); Complete Time: 08:52 [facility] 09/08 17:06 Order name: Troponin High Sensitivity; Complete Time: 08:52 [facility] 09/08 13:06 Order name: XRAY Chest (1 view); Complete Time: 14:20 [facility] 09/08 13:06 Order name: CT Head C Spine; Complete Time: 14:20 [facility] 09/08 13:06 Order name: EKG; Complete Time: 13:07 [facility] 09/08 13:06 Order name: Cardiac monitoring; Complete Time: 14:33 [facility] 09/08 13:06 Order name: EKG - Nurse/Tech; Complete Time: 14:33 [facility] 09/08 13:06 Order name: IV Saline Lock; Complete Time: 14:33 [facility] 09/08 13:06 Order name: Labs collected and sent; Complete Time: 14:26 [facility] 09/08 13:06 Order name: O2 Per Protocol; Complete Time: 14:26 [facility] 09/08 13:06 Order name: O2 Sat Monitoring; Complete Time: 14:26 [facility] 09/08 13:06 Order name: Wound Care; Complete Time: 15:48 [facility] 09/08 14:52 Order name: Misc. Order: clean wound; Complete Time: 15:48 [facility] EC:55 Rate is 69 beats/min. Rhythm is irregularly irregular. QRS [place] is Normal. QRS interval [facility] is normal at 146 msec. QT interval is normal at 434 msec. Clinical impression: Atrial fibrillation with bifascicular block. Administered Medications: No medications were administered Disposition Summary: 09/08/23 15:24 Hospitalization Ordered Notes: Hospitalization Status: Inpatient Admission [facility] Provider: Wei Roman [facility] Location: Telemetry/MedSurg (Inpatient) [facility] Condition: Stable [facility] Problem: new [facility] Symptoms: have worsened [facility] Bed/Room Type: Standard [facility] Room Assignment: [facility](09/08/23 17:45) [facility] Diagnosis - Syncope [facility] - Dizziness and giddiness [facility] - Scalp Laceration [facility] Forms: - Medication Reconciliation Form [facility] - SBAR form [facility] - Leadership Thank You Letter [facility] Signatures: Dispatcher [employer] Annalise Trent RN RN Carrie Brian RN RN ph Hadash, Jennifer, DROP WIRE STRINGER DROP WIRE STRINGER [facility] Juana Gallegos [facility] Corrections: (The following items were deleted from the chart) 17:45 15:24 [place] [id number]
[2023-09-08 15:49] LABS: Specific Gravity 1.018 (1.005-1.030); Urine Bacteria None Seen /HPF (<20); Urine Bilirubin NEGATIVE (Negative); Urine Blood 1+ (Negative); Urine Clarity Clear (Clear); Urine Color Light-Yellow (Yellow); Urine Glucose 4+ (Over) (Negative); Urine Mucus Slight /HPF (None Seen); Urine Protein NEGATIVE (Negative); Urine Urobilinogen Normal (Normal)
[2023-09-08] MEDS: INSULIN REGULAR (HUMAN) 100 UNIT/ML SQ SCH (21:00)
[2023-09-08 23:07] VITALS: BMI 26.7
[2023-09-08 23:22] VITALS: O2SAT 96
[2023-09-09 03:45] LABS: Protime INR 1.39
[2023-09-09 03:48] LABS: Absolute Lymphocytes (CBC) 0.4 K/uL (0.7-4.9); Lymphocytes % 12.3 % (15.3-44.8); MCV 88.3 fL (80-100); MPV 7.2 fL (7.6-11.3); Platelets 196 thou/uL (152-406); RBC Red Blood Cell Count 4.19 M/uL (4.33-5.43)
[2023-09-09 04:04] LABS: Albumin 3.4 g/dL (3.4-5.0); Bilirubin Total 0.7 mg/dL (0.2-1.0); Potassium 3.3 mEq/L (3.5-5.1); Protein, Total 6.9 g/dL (6.4-8.2)
[2023-09-09 07:25] LABS: Urine Bilirubin NEGATIVE (Negative); Urine Blood Negative (Negative); Urine Clarity Clear (Clear); Urine Color Yellow (Yellow); Urine Glucose 4+ (Over) (Negative); Urine Protein NEGATIVE (Negative); Urine Urobilinogen Normal (Normal); Urine pH 5.5 (5.0-7.0)
[2023-09-09] MEDS: INSULIN REGULAR (HUMAN) 100 UNIT/ML SQ SCH ×2 (07:30→11:30)
[2023-09-09] MEDS ORDERED: PNEUMOCOCCAL VACCINE 0.5 ML IMVAC ONE (08:00)
[2023-09-09 10:07] VITALS: TEMP 97.7
[2023-09-09] MEDS ORDERED: MIDODRINE HCL 5 MG TABLET PO SCH (11:10)
[2023-09-09 12:16] VITALS: BP 124/72
--- NOTE | 2023-09-09 12:27 | EKG ---
Test Date: 2023-09-08 Test Time: 13:51:40 Bioanalyst: EMY MEASUREMENT RESULTS: Intervals: Rate: 69 WA: QRSD: 146 QT: 434 QTc: 465 [place]: P: WA: QRS: -69 T: 84 INTERPRETIVE STATEMENTS: Atrial fibrillation Right bundle branch block Left anterior fascicular block Bifascicular block Abnormal ECG Compared to ECG 04/15/2021 08:44:57 Left anterior fascicular block now present Bifascicular block now present Left-axis deviation no longer present Electronically Signed On 09-09-23 12:25:59 [employer] by Lazaro Carroll
[2023-09-09] MEDS ORDERED: INFLUENZA VACCINE (for 6+ mo) 0.5 ML DOSE IMVAC ONE (13:00)
--- NOTE | 2023-09-09 13:00 | P.SSS ---
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 HE HAS HAD FOLLOWING MEDICAL ISSUES. History of hemorrhagic cerebrovascular accident (CVA) without residual deficits [Z86.73] 2018 HTN (hypertension) [I10] 2018 Dyslipidemia [E78.5] 2018 Vitamin D deficiency [E55.9] 2018 A-fib [I48.91 0.3] 2018 Cardiac tamponade [I31.4] ON COLCHCINE AFTER WINDOW. ON COLCHCINE AFTER WINDOW. 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 POST SURGERY AND RADIATION L SIDE. 2020 DM (diabetes mellitus) with peripheral vascular complication [E11.51 0.3] 2020 Deep venous thrombosis [I82.409 0.3] UNPROVOKED, NEGATIVE HYPERCOAG KAN. UNPROVOKED, NEGATIVE HYPERCOAG KAN. 2020 Lumbar radicular pain [M54.16] 2022 Coronary arteriosclerosis [I25.10] STENT STENT 2022 Prostate cancer [C61 0.1] RADIATION RADIATION 2022 Orthostatic hypotension [I95.1] RECENTLY I SAW HIM FOR DIZZINESS AND FOUND THAT HE WAS ORTHOSTATIC. I PUT HIM ON FLORINEF TO REDUCE LOW BP EPISODES AND REDUCED METOPROLOL TO 12. 5 MG QHS ONLY. ALSO I STOPPED FLOMAX. BROUGHT HIM FOR WEAKNESS AND DIZZINESS. HE NEVER PASSED OUT. HE HAS THE SAME ISSUE THAT IS NOT GOING TO GET BETTER QUICKLY. HIS BP DROPPPED FROM NORMAL TO 66 SYSTOLIC ON STANDING. HE IS STABLE LONG SITTING. EATING BF ON HIS OWN. AND HE NEED TO BE CAREFUL AND NOT STAND FOR TOO LONG. I STARTED MIDODRINE AND HE WILL GO HOME TODAY. Allergies No Known Allergies Allergy (Verified 09/09/23 02:54) Home Medications: Atorvastatin Calcium [Lipitor*] 5 mg PO DAILY 07/02/13 Fenofibrate [Tricor*] 145 mg PO DAILY 07/02/13 Levothyroxine [Synthroid*] 88 mcg PO [id number] 04/13/21 Diphenhydramine [Benadryl*] 25 mg PO BEDTIME PRN PRN tab 04/17/21 traMADol HCL [Ultram*] 50 mg PO Q4H PRN tab 04/17/21 Apixaban [Eliquis] 5 mg PO BID #30 tablet 04/27/21 Glucerna Shake [Glucerna*] 237 ml PO BID #60 can 04/27/21 Insulin Glargine,Hum.rec.anlog [Lantus] 15 unit SQ DAILY #1 ml 04/27/21 Levothyroxine [Synthroid*] 0.088 mg PO DAILY #30 tab 04/27/21 Lidocaine 4% Patch [Lidoderm 5% Patch*] 2 patch TOP DAILY #60 patch 04/27/21 Metoprolol Succinate [Toprol Xl*] 12.5 mg PO DAILY #30 tab 04/27/21 Venlafaxine HCl *Xr* [Effexor XR] 75 mg PO DAILY #30 cap 04/27/21 Midodrine HCl [Proamatine*] 5 mg PO TID #270 tab 09/09/23 - Past Medical/Surgical History Has patient received pneumonia vaccine in the past: Yes Diabetic: Yes - Family History Mother -: Heart disease Notes: CHF Father -: Heart disease Notes: CHF Brother -: Diabetes - Social History Smoking Status: Former smoker Alcohol use: No CD- Drugs: No Caffeine use: No Review of Systems 10-point ROS is otherwise unremarkable General: Weakness Physical Examination - Vital Signs Temperature: 97.7 F Blood Pressure: 124/72 Pulse: 76 Respirations: 18 Pulse Ox (%): 90 - Physical Exam General: Alert, In no apparent distress, Other (L FACIAL PALSY FROM LARGE PAROTID TUMOR SURGERY. ) HEENT: Atraumatic, PERRLA, Mucous membr. moist/pink, EOMI, Sclerae nonicteric Neck: Supple, 2+ carotid pulse no bruit, No LAD, Without JVD or thyroid abnormality Respiratory: Clear to auscultation bilaterally, Normal air movement Cardiovascular: Regular rate/rhythm, Normal S1 S2 Gastrointestinal: Normal bowel sounds, No tenderness Musculoskeletal: No tenderness Integumentary: No rashes Neurological: Normal gait, Normal speech, Normal strength at 5/5 x4 extr, Normal tone, Normal affect Lymphatics: No axilla or inguinal lymphadenopathy - Studies Laboratory Data (last 24 hrs) 09/08/23 09/08/23 09/08/23 13:20 13:20 13:20 WBC 3.00 L Hgb 12.5 L Hct 37.4 L Plt Count 199 PT 20.1 H INR 1.86 Sodium 139 Potassium 3.6 BUN 29 H Creatinine 1.56 H Glucose 163 H Magnesium 2.2 - Diagnosis (Problem(s)) (1) Orthostatic hypotension Current Visit: Yes Status: Acute Plan: FLORINEF AND MIDODRINE. FU ONE WEEK AT OFFICE. BE SAFE AT HOME WALK WITH WALKER DO NOT STAND MUCH. YOU WILL FALL OTHER MILLER. 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
== END 2023-09-09 14:57 | disposition home health service (06) ==
LOC: ER 12:41 → ERHOLD 17:11 → OBSVTOIN 17:11 → INTOOBSV 17:11 → 2ND 18:04
PROVIDERS: ADMIT Internal Medicine; ATTEND Internal Medicine
PROC: 0JQ00ZZ Repair Scalp Subcutaneous Tissue and Fascia, Open Approach (ICD-10-PCS; principal; 2023-09-08)
DX: I95.1 Orthostatic hypotension (principal); R42 Dizziness and giddiness; C08.9 Malignant neoplasm of major salivary gland, unspecified; I25.10 Atherosclerotic heart disease of native coronary artery without angina pectoris; G51.0 Bell's palsy; I48.91 Unspecified atrial fibrillation; E78.5 Hyperlipidemia, unspecified; E55.9 Vitamin D deficiency, unspecified; I10 Essential (primary) hypertension; E11.9 Type 2 diabetes mellitus without complications; S01.01XA Laceration without foreign body of scalp, initial encounter; W18.39XA Other fall on same level, initial encounter; Y93.9 Activity, unspecified; Y92.019 Unspecified place in single-family (private) house as the place of occurrence of the external cause; Z79.899 Other long term (current) drug therapy; Z85.46 Personal history of malignant neoplasm of prostate; Z78.9 Other specified health status; Z86.73 Personal history of transient ischemic attack (TIA), and cerebral infarction without residual deficits; Z86.718 Personal history of other venous thrombosis and embolism; Z85.858 Personal history of malignant neoplasm of other endocrine glands; Z87.891 Personal history of nicotine dependence; Z79.890 Hormone replacement therapy
CPT/HCPCS: 93005; 85025 ×2; 81001; 80048; 36415; 83735; 85610 ×2; 82947 ×3; 81003; 84484 ×2; 80053; 83880; 70450; 72125; 71045; 90471; 97112; 97116; 97161; 97530 ×2; 94760; 99285; 12001; Q2035; G0378 ×3